=== PATIENT | male | born 1945 | race Two or more races ===

== ENCOUNTER 2018-06-11 08:15 | Emergency (ER) | payer OTHER, MEDICAID ==
[~2018-06-11] VITALS: Ht 160 cm; Wt 74.8 kg
[2018-06-11 12:03] LABS: Alanine Aminotransferase 29 U/L (16-61); Albumin 3.2 g/dL (3.4-5.0); Anion Gap 6 (5-15); Aspartate Aminotransferase 20 U/L (15-37); Blood Urea Nitrogen 14 mg/dL (7-18); Calcium 7.1 mg/dL (8.5-10.1); Carbon Dioxide 23 mmol/L (21-32); Chloride 114 mmol/L (98-107); Glucose 121 mg/dL (74-106); Magnesium 2.1 mg/dL (1.6-2.6); Potassium 3.2 mmol/L (3.5-5.1); Sodium 143 mmol/L (136-145)
[2018-06-11 12:07] LABS: Basophils # (auto) 0 uL; Basophils % (auto) 0.3 % (0.0-2.0); Eosinophils # (auto) 0 uL; Eosinophils % (auto) 0.4 % (0.0-7.0); Hematocrit 41.1 % (41.0-53.0); Lymphocytes % (auto) 19.5 % (10.0-50.0); Mean Corpuscular Hemoglobin 30.7 pg (28.0-32.0); Mean Corpuscular Volume 90.5 fL (80.0-100.0); Monocytes # (auto) 0.2 uL; Monocytes % (auto) 3.8 % (0.0-12.0); Neutrophils # (auto) 3.7 uL; Nucleated Red Blood Cells % 0.1 %; Platelet Count (auto) 120 10^3/uL (140-450); Red Blood Cells 4.54 10^6/uL (4.5-5.90); Red Cell Distribution Width 13.3 % (11.8-14.3); White Blood Cell 4.9 10^3/uL (4.4-10.8)
[2018-06-11 12:08] LABS: Alkaline Phosphatase 48 U/L (45-117); BUN/Creatinine Ratio 23.7; Bilirubin, Total 0.6 mg/dL (0.2-1.0); GFR African American 174 mL/min; GFR Non-African American 144 mL/min; Total Protein 6.1 g/dL (6.4-8.2)
[2018-06-11 13:29] LABS: Urine Bacteria NONE SEEN /hpf (None Seen); Urine Blood Negative /uL (Negative); Urine Mucus FEW (None Seen); Urine Specific Gravity 1.016 (1.001-1.035); Urine WBC 2 /hpf (0 - 3)
[2018-06-11] MEDS ORDERED: POTASSIUM EFFERVESENT TAB 25 MEQ PO ONE (13:30)
[2018-06-11] MEDS ORDERED: POTASSIUM CHL 20 Meq TABLET PO ONE (13:45)
[2018-06-11 15:54] VITALS: BP 131/76
== END 2018-06-11 15:58 | disposition home or self-care (01) ==
LOC: EDBD 08:15 → ER 08:15
DX: B34.9 Viral infection, unspecified (principal); G47.00 Insomnia, unspecified; E87.6 Hypokalemia; I44.0 Atrioventricular block, first degree; E44.1 Mild protein-calorie malnutrition; Z68.29 Body mass index [BMI] 29.0-29.9, adult
CPT/HCPCS: 36415; 71046; 80053; 81001; 83735; 84484; 85025; 93005

== ENCOUNTER 2023-11-12 10:37 | Inpatient (IN) | payer OTHER, MEDICAID ==
[~2023-11-12] VITALS: Ht 167.6 cm; Wt 72.0 kg
[2023-11-12 12:23] LABS: Urine Bacteria None Seen /hpf (None Seen)
[2023-11-12 12:31] LABS: Urine Blood TRACE /uL (Negative); Urine Clarity Clear (Clear); Urine Color Light-Yellow (Yellow); Urine Protein, UAD Negative (Negative); Urine Specific Gravity 1.007 (1.001-1.035); Urine Urobilinogen Normal (Negative); Urine WBC 2 /hpf (0 - 3)
[2023-11-12 13:10] LABS: Basophils # (auto) 0 10 ^3/uL (0-0.2); Basophils % (auto) 0.2 % (0.0-2.0); Eosinophils # (auto) 0 10 ^3/uL (0-0.8); Eosinophils % (auto) 0.5 % (0.0-7.0); Hematocrit 43.3 % (41.0-53.0); Hemoglobin 15.1 g/dL (13.5-17.5); Lymphocytes # (auto) 1.2 10 ^3/uL (0.4-5.4); Lymphocytes % (auto) 16.5 % (10.0-50.0); Mean Corpuscular Hemoglobin 31.3 pg (28.0-32.0); Mean Corpuscular Hgb Conc. 34.8 g/dL (32.0-36.0); Mean Corpuscular Volume 90.1 fL (80.0-100.0); Monocytes # (auto) 0.5 10 ^3/uL (0-1.3); Neutrophils # (auto) 5.5 10 ^3/uL (1.6-8.6); Neutrophils % (auto) 75.8 % (37.0-80.0); Platelet Count (auto) 154 10^3/uL (140-450); Red Blood Cells 4.81 10^6/uL (4.5-5.90); Red Cell Distribution Width 15.2 % (11.8-14.3); White Blood Cell 7.3 10^3/uL (4.4-10.8)
[2023-11-12] MEDS: TAMSULOSIN HYDROCHLORIDE 0.4 MG CAP PO ONE (13:21)
[2023-11-12 13:27] LABS: Alanine Aminotransferase 23 U/L (7-40); Alkaline Phosphatase 54 U/L (46-116); Anion Gap 15 (5-15); Aspartate Aminotransferase 25 U/L (13-40); Calcium 9.1 mg/dL (8.7-10.4); Carbon Dioxide 17 mmol/L (20-30); Chloride 94 mmol/L (98-107); Glucose 101 mg/dL (74-106); Potassium 4.8 mmol/L (3.5-5.1); Sodium 126 mmol/L (136-145)
[2023-11-12 13:28] LABS: BUN/Creatinine Ratio 5.5 (10.0-20.0); Blood Urea Nitrogen 73 mg/dL (9-23); Lipase 114 U/L (12-53); Magnesium 2.1 mg/dL (1.6-2.6)
[2023-11-12 13:29] LABS: Albumin 4.5 g/dL (3.2-4.8)
[2023-11-12] MEDS: SODIUM CHLORIDE 0.9% 1,000 ML IV ONE (13:29)
[2023-11-12 13:30] LABS: Bilirubin, Total 0.8 mg/dL (0.2-1.0); Total Protein 7.4 g/dL (5.7-8.2)
[2023-11-12] MEDS: SODIUM CHLORIDE 0.9% 250 ML IV ONE (13:35)
[2023-11-12] MEDS ORDERED: ONDANSETRON HCL 4 MG/2 ML VIAL IV PRN (15:30)
[2023-11-12] MEDS ORDERED: MORPHINE SULFATE INJ 2 MG/ml SYRG IV PRN ×2 (15:30→18:15)
[2023-11-12] MEDS ORDERED: DOCUSATE SOD 100 MG CAP PO PRN (15:30)
[2023-11-12] MEDS: SODIUM CHLORIDE 0.9% 1,000 ML IV SCH (15:30)
[2023-11-12 16:24] LABS: Creatinine, Urine 53.06 mg/dL (30.0-125.0)
[2023-11-12] MEDS ORDERED: NITROGLYCERIN 0.4 MG SL TAB SL PRN (16:30)
[2023-11-12] MEDS: HYDROcodone-ACET 5/325MG TAB PO PRN (16:50)
[2023-11-12] MEDS: cefTRIAXone 1GM/50ML D5W 50 ML IV ONE (18:24)
[2023-11-12] MEDS: MORPHINE SULFATE INJ 2 MG/ml SYRG IV ONE (18:26)
[2023-11-12 18:50] LABS: Hematocrit 39.2 % (41.0-53.0); Hemoglobin 13.6 g/dL (13.5-17.5)
[2023-11-13] VITALS (8 sets, daily range): BP systolic 119–158; BP diastolic 63–69; PULSE 18–78; RESP 16–20; TEMP 97.6–98.3; O2SAT 95–97
[2023-11-13] MEDS ORDERED: DOXY100C4 PO (00:13)
[2023-11-13] MEDS ORDERED: TRIA37.586 PO (00:13)
[2023-11-13] MEDS ORDERED: FIN5T PO (00:13)
[2023-11-13 07:24] LABS: Basophils # (auto) 0 10 ^3/uL (0-0.2); Basophils % (auto) 0.4 % (0.0-2.0); Eosinophils # (auto) 0 10 ^3/uL (0-0.8); Eosinophils % (auto) 0.8 % (0.0-7.0); Hematocrit 37.9 % (41.0-53.0); Hemoglobin 13.4 g/dL (13.5-17.5); Lymphocytes # (auto) 1.2 10 ^3/uL (0.4-5.4); Lymphocytes % (auto) 19.4 % (10.0-50.0); Mean Corpuscular Hgb Conc. 35.3 g/dL (32.0-36.0); Monocytes # (auto) 0.8 10 ^3/uL (0-1.3); Monocytes % (auto) 12.5 % (0.0-12.0); Neutrophils # (auto) 4.2 10 ^3/uL (1.6-8.6); Neutrophils % (auto) 66.9 % (37.0-80.0); Nucleated Red Blood Cells % 0.1 %; Platelet Count (auto) 144 10^3/uL (140-450); Red Blood Cells 4.31 10^6/uL (4.5-5.90); Red Cell Distribution Width 15.1 % (11.8-14.3); White Blood Cell 6.2 10^3/uL (4.4-10.8)
[2023-11-13 07:28] LABS: Alanine Aminotransferase 20 U/L (7-40); Alkaline Phosphatase 46 U/L (46-116); Anion Gap 7 (5-15); BUN/Creatinine Ratio 12.6 (10.0-20.0); Carbon Dioxide 23 mmol/L (20-30); Chloride 106 mmol/L (98-107); Glucose 109 mg/dL (74-106); Potassium 4.1 mmol/L (3.5-5.1); Sodium 136 mmol/L (136-145)
[2023-11-13 07:29] LABS: Albumin 3.7 g/dL (3.2-4.8); Aspartate Aminotransferase 21 U/L (13-40); Bilirubin, Total 1.1 mg/dL (0.2-1.0); Total Protein 6.1 g/dL (5.7-8.2)
[2023-11-13 07:40] LABS: Blood Urea Nitrogen 28 mg/dL (9-23)
[2023-11-13] MEDS: cefTRIAXone 1GM/50ML D5W 50 ML IV SCH (09:57)
[2023-11-13] MEDS: TAMSULOSIN HYDROCHLORIDE 0.4 MG CAP PO SCH (17:12)
[2023-11-13] MEDS ORDERED: hydrALAZINE HCL 20 MG/ML VL IV PRN (19:45)
[2023-11-13] MEDS: FINASTERIDE 5 MG TAB PO ONE (20:30)
[2023-11-13] MEDS: amLODIPine BESYLATE 5 MG TAB PO ONE (20:30)
[2023-11-13] MEDS: ENOXAPARIN SOD 30 MG/0.3 ML SYRINGE SC ONE (21:30)
[2023-11-14] VITALS (7 sets, daily range): BP systolic 117–134; BP diastolic 63–72; PULSE 65–98; RESP 16–18; TEMP 97.6–98.6; O2SAT 93–97
[2023-11-14 07:44] LABS: Basophils # (auto) 0 10 ^3/uL (0-0.2); Basophils % (auto) 0.6 % (0.0-2.0); Eosinophils # (auto) 0.1 10 ^3/uL (0-0.8); Eosinophils % (auto) 1.9 % (0.0-7.0); Hematocrit 36.9 % (41.0-53.0); Hemoglobin 13.1 g/dL (13.5-17.5); Lymphocytes # (auto) 1.3 10 ^3/uL (0.4-5.4); Lymphocytes % (auto) 22.3 % (10.0-50.0); Mean Corpuscular Hemoglobin 31.7 pg (28.0-32.0); Mean Corpuscular Hgb Conc. 35.4 g/dL (32.0-36.0); Mean Corpuscular Volume 89.6 fL (80.0-100.0); Monocytes # (auto) 0.6 10 ^3/uL (0-1.3); Monocytes % (auto) 10.1 % (0.0-12.0); Neutrophils # (auto) 3.8 10 ^3/uL (1.6-8.6); Neutrophils % (auto) 65.1 % (37.0-80.0); Nucleated Red Blood Cells % 0.1 %; Platelet Count (auto) 136 10^3/uL (140-450); Red Blood Cells 4.12 10^6/uL (4.5-5.90); Red Cell Distribution Width 15.1 % (11.8-14.3); White Blood Cell 5.9 10^3/uL (4.4-10.8)
[2023-11-14 08:01] LABS: Alanine Aminotransferase 17 U/L (7-40); Alkaline Phosphatase 40 U/L (46-116); Anion Gap 1 (5-15); Carbon Dioxide 29 mmol/L (20-30); Chloride 107 mmol/L (98-107); Potassium 3.8 mmol/L (3.5-5.1); Sodium 137 mmol/L (136-145)
[2023-11-14 08:02] LABS: BUN/Creatinine Ratio 13.7 (10.0-20.0); Blood Urea Nitrogen 10 mg/dL (9-23); Glucose 99 mg/dL (74-106)
[2023-11-14 08:03] LABS: Aspartate Aminotransferase 20 U/L (13-40)
[2023-11-14 08:04] LABS: Albumin 3.4 g/dL (3.2-4.8); Bilirubin, Total 0.9 mg/dL (0.2-1.0); Total Protein 5.5 g/dL (5.7-8.2)
[2023-11-14 09:30] LABS: Lipase 59 U/L (12-53)
[2023-11-14] MEDS: amLODIPine BESYLATE 5 MG TAB PO SCH (09:49)
[2023-11-14] MEDS: FINASTERIDE 5 MG TAB PO SCH (09:49)
[2023-11-14] MEDS: ENOXAPARIN SOD 30 MG/0.3 ML SYRINGE SC SCH (09:50)
[2023-11-14] MEDS: SODIUM CHLORIDE 0.9% 1,000 ML IV SCH (12:30)
[2023-11-14 15:18] LABS: Creatinine, Urine 27.84 mg/dL (30.0-125.0)
[2023-11-15 05:00] VITALS: BP 143/60; PULSE 75; RESP 18; TEMP 98; O2SAT 96
[2023-11-15 07:03] LABS: Basophils # (auto) 0 10 ^3/uL (0-0.2); Basophils % (auto) 0.5 % (0.0-2.0); Eosinophils # (auto) 0.2 10 ^3/uL (0-0.8); Eosinophils % (auto) 2.3 % (0.0-7.0); Hematocrit 38.9 % (41.0-53.0); Hemoglobin 13.6 g/dL (13.5-17.5); Lymphocytes % (auto) 14.6 % (10.0-50.0); Mean Corpuscular Hemoglobin 31.4 pg (28.0-32.0); Mean Corpuscular Volume 89.7 fL (80.0-100.0); Monocytes # (auto) 0.6 10 ^3/uL (0-1.3); Monocytes % (auto) 8.7 % (0.0-12.0); Neutrophils % (auto) 73.9 % (37.0-80.0); Platelet Count (auto) 145 10^3/uL (140-450); Red Blood Cells 4.34 10^6/uL (4.5-5.90); Red Cell Distribution Width 14.6 % (11.8-14.3); White Blood Cell 6.8 10^3/uL (4.4-10.8)
[2023-11-15 07:22] LABS: INR 1.15 (0.9-1.15); Partial Thromboplastin Time 30.6 SEC (24.5-34.5); Prothrombin Time 12.1 sec (9.3-11.8)
[2023-11-15 07:31] LABS: Alanine Aminotransferase 17 U/L (7-40); Albumin 3.5 g/dL (3.2-4.8); Alkaline Phosphatase 44 U/L (46-116); Anion Gap 5 (5-15); Aspartate Aminotransferase 15 U/L (13-40); BUN/Creatinine Ratio 9.2 (10.0-20.0); Blood Urea Nitrogen 6 mg/dL (9-23); Calcium 9.1 mg/dL (8.7-10.4); Carbon Dioxide 27 mmol/L (20-30); Chloride 104 mmol/L (98-107); Glucose 113 mg/dL (74-106); Potassium 3.5 mmol/L (3.5-5.1); Sodium 136 mmol/L (136-145)
[2023-11-15 08:00] VITALS: BP 110/64; PULSE 68; RESP 18; TEMP 98.8; O2SAT 92
[2023-11-15 09:00] VITALS: BP 110/64; PULSE 68; RESP 18; TEMP 98.8; O2SAT 92
[2023-11-15] MEDS: CIPROFLOXACIN 400MG/200ML 200 ML IV ONE (13:51)
[2023-11-15] MEDS ORDERED: fentaNYL CITRATE 100 MCG/2 ML VL ONE (16:14)
[2023-11-15] MEDS ORDERED: MEPERIDINE HCL (25 MG/ML) 1ML VIAL ONE (16:14)
[2023-11-15] MEDS ORDERED: MIDAZOLAM HCL 2MG/2ML 2ml VIAL (1mg/ml) ONE (16:14)
[2023-11-15] MEDS ORDERED: DexAMETHasone SOD PHOS 10MG/1ML VIAL INJ ONE (16:16)
[2023-11-15] MEDS ORDERED: PROPOFOL 10 MG/ML 20 ML IV ONE (16:16)
[2023-11-15 16:44] VITALS: BP 144/69; PULSE 85; RESP 18; TEMP 98.7; O2SAT 95
[2023-11-15 20:00] VITALS: RESP 18; O2SAT 96
[2023-11-15 21:00] VITALS: BP 147/69; PULSE 91; RESP 18; TEMP 98.7; O2SAT 96
[2023-11-16] VITALS (9 sets, daily range): BP systolic 118–142; BP diastolic 58–78; PULSE 68–91; RESP 16–21; TEMP 97.3–99.3; O2SAT 93–100
[2023-11-16 07:14] LABS: Basophils # (auto) 0 10 ^3/uL (0-0.2); Basophils % (auto) 0.3 % (0.0-2.0); Eosinophils # (auto) 0.1 10 ^3/uL (0-0.8); Eosinophils % (auto) 1.7 % (0.0-7.0); Hematocrit 38.6 % (41.0-53.0); Hemoglobin 13.5 g/dL (13.5-17.5); Lymphocytes # (auto) 1.4 10 ^3/uL (0.4-5.4); Lymphocytes % (auto) 15.4 % (10.0-50.0); Mean Corpuscular Hemoglobin 31.6 pg (28.0-32.0); Mean Corpuscular Volume 90.2 fL (80.0-100.0); Monocytes # (auto) 0.7 10 ^3/uL (0-1.3); Monocytes % (auto) 8.1 % (0.0-12.0); Neutrophils # (auto) 6.6 10 ^3/uL (1.6-8.6); Neutrophils % (auto) 74.5 % (37.0-80.0); Nucleated Red Blood Cells % 0.1 %; Platelet Count (auto) 149 10^3/uL (140-450); Red Blood Cells 4.28 10^6/uL (4.5-5.90); Red Cell Distribution Width 14.3 % (11.8-14.3); White Blood Cell 8.9 10^3/uL (4.4-10.8)
[2023-11-16 07:45] LABS: Alanine Aminotransferase 13 U/L (7-40); Albumin 3.6 g/dL (3.2-4.8); Alkaline Phosphatase 45 U/L (46-116); Anion Gap 3 (5-15); BUN/Creatinine Ratio 6.9 (10.0-20.0); Blood Urea Nitrogen 5 mg/dL (9-23); Calcium 8.7 mg/dL (8.7-10.4); Carbon Dioxide 26 mmol/L (20-30); Chloride 105 mmol/L (98-107); Glucose 125 mg/dL (74-106); Potassium 3.3 mmol/L (3.5-5.1); Sodium 134 mmol/L (136-145)
[2023-11-16 07:47] LABS: Aspartate Aminotransferase 11 U/L (13-40); Total Protein 6.1 g/dL (5.7-8.2)
[2023-11-16] MEDS: KETOROLAC TROMETH 30 MG/ML 1ML VIAL IV ONE (09:03)
[2023-11-16] MEDS: POTASSIUM CHL 20MEQ/100ML 100 ML IV ONE (09:03)
[2023-11-16] MEDS ORDERED: KETOROLAC TROMETH 30 MG/ML 1ML VIAL IV PRN (13:00)
[2023-11-16] MEDS ORDERED: SUGAMMADEX 200mg/2ml Vial (100MG/ML) IV ONE (13:54)
[2023-11-16] MEDS ORDERED: ROCURONIUM 10MG/ML 10ML VIAL IV ONE ×2 (13:54→16:41)
[2023-11-16] MEDS ORDERED: LIDOCAINE 2% (LOCAL ANESTH.) PF 5ml SDV ONE (13:54)
[2023-11-16] MEDS ORDERED: PROPOFOL 10 MG/ML 20 ML IV ONE ×2 (13:54→16:41)
[2023-11-16] MEDS ORDERED: DexAMETHasone SOD PHOS 10MG/1ML VIAL INJ ONE (13:54)
[2023-11-16] MEDS ORDERED: ONDANSETRON HCL 4 MG/2 ML VIAL ONE (13:54)
[2023-11-16] MEDS ORDERED: GLYCOPYRROLATE 0.2 MG/ML 1ML VIAL ONE ×2 (13:54→19:07)
[2023-11-16] MEDS ORDERED: KETAMINE 50mg/ML 1ml syringe ONE (13:58)
[2023-11-16] MEDS: CIPROFLOXACIN 400MG/200ML 200 ML IV ONE (15:42)
[2023-11-16] MEDS: MAGNESIUM SULFATE 1GM/100ML 100 ML IV ONE (16:00)
[2023-11-16] MEDS ORDERED: MIDAZOLAM HCL 2MG/2ML 2ml VIAL (1mg/ml) ONE (16:40)
[2023-11-16] MEDS ORDERED: fentaNYL CITRATE 5 ML ONE (16:40)
[2023-11-16] MEDS ORDERED: HYDROmorphone HCL 2 MG/ML VL/or syr IV PRN (19:00)
[2023-11-16] MEDS ORDERED: NEOSTIGMINE 1 MG/ML INJ (10mg/10ML VIAL) ONE (19:07)
[2023-11-16] MEDS: oxyCODONE HCL 5MG TAB PO ONE (19:42)
[2023-11-16] MEDS ORDERED: NALOXONE HCL 0.4 MG/ML VIAL IV PRN (19:45)
[2023-11-16] MEDS ORDERED: ePHEDrine SULFATE 50 MG/ML AMP IV PRN (19:45)
[2023-11-16] MEDS ORDERED: FLUMAZENIL 0.1 MG/ML INJ 10ML MDV IV PRN (19:45)
[2023-11-16] MEDS ORDERED: hydrALAZINE HCL 20 MG/ML VL IV PRN (19:45)
[2023-11-16] MEDS ORDERED: fentaNYL CITRATE 100 MCG/2 ML VL IV PRN (19:45)
[2023-11-16] MEDS: HYDROmorphone HCL 2 MG/ML VL/or syr IV PRN (20:02)
[2023-11-16] MEDS ORDERED: HYDROmorphone HCL 2 MG/ML VL/or syr ONE (20:03)
[2023-11-17] VITALS (8 sets, daily range): BP systolic 105–138; BP diastolic 55–69; PULSE 67–91; RESP 15–21; TEMP 98.1–99.2; O2SAT 90–98
[2023-11-17 07:07] LABS: Basophils # (auto) 0 10 ^3/uL (0-0.2); Basophils % (auto) 0.3 % (0.0-2.0); Eosinophils # (auto) 0.2 10 ^3/uL (0-0.8); Eosinophils % (auto) 2.3 % (0.0-7.0); Lymphocytes % (auto) 13.5 % (10.0-50.0); Mean Corpuscular Hemoglobin 31.5 pg (28.0-32.0); Mean Corpuscular Hgb Conc. 35.2 g/dL (32.0-36.0); Mean Corpuscular Volume 89.4 fL (80.0-100.0); Monocytes # (auto) 0.5 10 ^3/uL (0-1.3); Monocytes % (auto) 6.8 % (0.0-12.0); Neutrophils % (auto) 77.1 % (37.0-80.0); Platelet Count (auto) 144 10^3/uL (140-450); Red Cell Distribution Width 14.5 % (11.8-14.3); White Blood Cell 7.7 10^3/uL (4.4-10.8)
[2023-11-17 07:16] LABS: Alanine Aminotransferase 12 U/L (7-40); Alkaline Phosphatase 39 U/L (46-116); Anion Gap 4 (5-15); BUN/Creatinine Ratio 14.5 (10.0-20.0); Blood Urea Nitrogen 10 mg/dL (9-23); Calcium 8.4 mg/dL (8.7-10.4); Carbon Dioxide 28 mmol/L (20-30); Chloride 106 mmol/L (98-107); Glucose 143 mg/dL (74-106); Potassium 3.6 mmol/L (3.5-5.1); Sodium 138 mmol/L (136-145)
[2023-11-17 07:17] LABS: Aspartate Aminotransferase 11 U/L (13-40); Bilirubin, Total 0.5 mg/dL (0.2-1.0); Total Protein 5.4 g/dL (5.7-8.2)
[2023-11-17] MEDS: MAGNESIUM SULFATE 1GM/100ML 100 ML IV SCH (09:41)
[2023-11-18] VITALS (8 sets, daily range): BP systolic 99–132; BP diastolic 52–85; PULSE 79–97; RESP 14–20; TEMP 97.8–98.7; O2SAT 93–97
[2023-11-18 07:18] LABS: Basophils # (auto) 0 10 ^3/uL (0-0.2); Basophils % (auto) 0.5 % (0.0-2.0); Eosinophils # (auto) 0.1 10 ^3/uL (0-0.8); Eosinophils % (auto) 1.6 % (0.0-7.0); Hematocrit 33.8 % (41.0-53.0); Lymphocytes # (auto) 0.9 10 ^3/uL (0.4-5.4); Lymphocytes % (auto) 11.5 % (10.0-50.0); Mean Corpuscular Hemoglobin 32.1 pg (28.0-32.0); Mean Corpuscular Hgb Conc. 35.5 g/dL (32.0-36.0); Mean Corpuscular Volume 90.4 fL (80.0-100.0); Monocytes # (auto) 0.4 10 ^3/uL (0-1.3); Monocytes % (auto) 5.2 % (0.0-12.0); Neutrophils # (auto) 6.6 10 ^3/uL (1.6-8.6); Neutrophils % (auto) 81.2 % (37.0-80.0); Platelet Count (auto) 165 10^3/uL (140-450); Red Blood Cells 3.74 10^6/uL (4.5-5.90); Red Cell Distribution Width 14.3 % (11.8-14.3); White Blood Cell 8.2 10^3/uL (4.4-10.8)
[2023-11-18 07:19] LABS: Alanine Aminotransferase 13 U/L (7-40); Albumin 3.1 g/dL (3.2-4.8); Alkaline Phosphatase 41 U/L (46-116); Anion Gap 4 (5-15); Aspartate Aminotransferase 14 U/L (13-40); BUN/Creatinine Ratio 12.9 (10.0-20.0); Blood Urea Nitrogen 8 mg/dL (9-23); Calcium 8.1 mg/dL (8.7-10.4); Carbon Dioxide 29 mmol/L (20-30); Chloride 105 mmol/L (98-107); Glucose 116 mg/dL (74-106); Magnesium 1.9 mg/dL (1.6-2.6); Potassium 3.4 mmol/L (3.5-5.1); Sodium 138 mmol/L (136-145)
[2023-11-18 07:20] LABS: Bilirubin, Total 0.6 mg/dL (0.2-1.0); Total Protein 5.6 g/dL (5.7-8.2)
[2023-11-18] MEDS: ENOXAPARIN SOD 40 MG/0.4 ML SYRINGE SC SCH (10:00)
[2023-11-18] MEDS: SODIUM CHLORIDE 0.9% 500 ML IV ONE (10:12)
[2023-11-18 13:32] LABS: Potassium 3.5 mmol/L (3.5-5.1)
[2023-11-18 13:39] LABS: Magnesium 1.9 mg/dL (1.6-2.6)
[2023-11-18] MEDS: POTASSIUM CHL 20 Meq TABLET PO ONE (13:54)
[2023-11-18] MEDS: MAGNESIUM SULFATE 1GM/100ML 100 ML IV ONE (13:54)
[2023-11-19] VITALS (7 sets, daily range): BP systolic 96–127; BP diastolic 56–67; PULSE 68–86; RESP 16–20; TEMP 97.7–98.7; O2SAT 94–96
[2023-11-19 05:53] LABS: Basophils # (auto) 0 10 ^3/uL (0-0.2); Basophils % (auto) 0.6 % (0.0-2.0); Eosinophils # (auto) 0.1 10 ^3/uL (0-0.8); Eosinophils % (auto) 2.6 % (0.0-7.0); Hemoglobin 11.8 g/dL (13.5-17.5); Lymphocytes # (auto) 1.2 10 ^3/uL (0.4-5.4); Lymphocytes % (auto) 21.2 % (10.0-50.0); Mean Corpuscular Hemoglobin 31.1 pg (28.0-32.0); Mean Corpuscular Hgb Conc. 34.7 g/dL (32.0-36.0); Mean Corpuscular Volume 89.7 fL (80.0-100.0); Monocytes # (auto) 0.4 10 ^3/uL (0-1.3); Monocytes % (auto) 7.7 % (0.0-12.0); Neutrophils # (auto) 3.9 10 ^3/uL (1.6-8.6); Neutrophils % (auto) 67.9 % (37.0-80.0); Platelet Count (auto) 185 10^3/uL (140-450); Red Blood Cells 3.79 10^6/uL (4.5-5.90); Red Cell Distribution Width 14.6 % (11.8-14.3); White Blood Cell 5.7 10^3/uL (4.4-10.8)
[2023-11-19 06:10] LABS: Alanine Aminotransferase 29 U/L (7-40); Albumin 2.9 g/dL (3.2-4.8); Alkaline Phosphatase 44 U/L (46-116); Anion Gap 3 (5-15); Aspartate Aminotransferase 28 U/L (13-40); BUN/Creatinine Ratio 16.1 (10.0-20.0); Blood Urea Nitrogen 10 mg/dL (9-23); Calcium 8.2 mg/dL (8.7-10.4); Carbon Dioxide 29 mmol/L (20-30); Chloride 106 mmol/L (98-107); Glucose 112 mg/dL (74-106); Potassium 3.6 mmol/L (3.5-5.1); Sodium 138 mmol/L (136-145)
[2023-11-19 06:11] LABS: Bilirubin, Total 0.6 mg/dL (0.2-1.0); Total Protein 5.5 g/dL (5.7-8.2)
[2023-11-19] MEDS: oxyCODONE HCL 5MG TAB ONE (07:39)
[2023-11-19] MEDS: ONDANSETRON HCL 4 MG/2 ML VIAL IV ONE ×2 (07:39)
[2023-11-20 01:00] VITALS: BP 113/62; PULSE 69; RESP 16; TEMP 97.8; O2SAT 93
[2023-11-20 05:00] VITALS: BP 112/60; PULSE 63; RESP 16; TEMP 97.7; O2SAT 94
[2023-11-20 06:43] LABS: Basophils # (auto) 0 10 ^3/uL (0-0.2); Basophils % (auto) 1.3 % (0.0-2.0); Eosinophils # (auto) 0.2 10 ^3/uL (0-0.8); Eosinophils % (auto) 4.5 % (0.0-7.0); Hematocrit 33.8 % (41.0-53.0); Hemoglobin 11.6 g/dL (13.5-17.5); Lymphocytes # (auto) 1.5 10 ^3/uL (0.4-5.4); Lymphocytes % (auto) 37.1 % (10.0-50.0); Mean Corpuscular Hemoglobin 30.8 pg (28.0-32.0); Mean Corpuscular Hgb Conc. 34.3 g/dL (32.0-36.0); Mean Corpuscular Volume 89.7 fL (80.0-100.0); Monocytes # (auto) 0.4 10 ^3/uL (0-1.3); Monocytes % (auto) 11.1 % (0.0-12.0); Neutrophils # (auto) 1.8 10 ^3/uL (1.6-8.6); Platelet Count (auto) 208 10^3/uL (140-450); Red Blood Cells 3.76 10^6/uL (4.5-5.90); Red Cell Distribution Width 14.3 % (11.8-14.3); White Blood Cell 3.9 10^3/uL (4.4-10.8)
[2023-11-20 07:07] LABS: Alanine Aminotransferase 38 U/L (7-40); Albumin 3.1 g/dL (3.2-4.8); Alkaline Phosphatase 40 U/L (46-116); Anion Gap 3 (5-15); Aspartate Aminotransferase 33 U/L (13-40); BUN/Creatinine Ratio 17.9 (10.0-20.0); Bilirubin, Total 0.5 mg/dL (0.2-1.0); Blood Urea Nitrogen 12 mg/dL (9-23); Calcium 8.6 mg/dL (8.7-10.4); Carbon Dioxide 28 mmol/L (20-30); Chloride 108 mmol/L (98-107); Glucose 100 mg/dL (74-106); Magnesium 1.8 mg/dL (1.6-2.6); Potassium 3.9 mmol/L (3.5-5.1); Sodium 139 mmol/L (136-145); Total Protein 5.5 g/dL (5.7-8.2)
[2023-11-20 09:00] VITALS: BP 123/69; PULSE 63; RESP 20; TEMP 98; O2SAT 96
[2023-11-20 13:00] VITALS: BP 107/54; PULSE 82; RESP 20; TEMP 97.9; O2SAT 96
[2023-11-20 17:00] VITALS: BP 116/63; PULSE 65; RESP 20; TEMP 98.3; O2SAT 96
[2023-11-20 21:00] VITALS: BP 122/62; PULSE 76; RESP 17; TEMP 98.1; O2SAT 95
[2023-11-21] VITALS (7 sets, daily range): BP systolic 105–125; BP diastolic 51–70; PULSE 63–77; RESP 16–18; TEMP 97.9–98.3; O2SAT 94–100
[2023-11-21 07:02] LABS: Basophils # (auto) 0 10 ^3/uL (0-0.2); Basophils % (auto) 1.1 % (0.0-2.0); Eosinophils # (auto) 0.2 10 ^3/uL (0-0.8); Eosinophils % (auto) 5.4 % (0.0-7.0); Hematocrit 34.6 % (41.0-53.0); Hemoglobin 12.1 g/dL (13.5-17.5); Lymphocytes # (auto) 1.3 10 ^3/uL (0.4-5.4); Lymphocytes % (auto) 33.8 % (10.0-50.0); Mean Corpuscular Hemoglobin 31.2 pg (28.0-32.0); Mean Corpuscular Hgb Conc. 34.9 g/dL (32.0-36.0); Mean Corpuscular Volume 89.5 fL (80.0-100.0); Monocytes # (auto) 0.4 10 ^3/uL (0-1.3); Monocytes % (auto) 9.3 % (0.0-12.0); Neutrophils # (auto) 1.9 10 ^3/uL (1.6-8.6); Neutrophils % (auto) 50.4 % (37.0-80.0); Nucleated Red Blood Cells % 0.1 %; Platelet Count (auto) 226 10^3/uL (140-450); Red Blood Cells 3.87 10^6/uL (4.5-5.90); Red Cell Distribution Width 14.3 % (11.8-14.3); White Blood Cell 3.9 10^3/uL (4.4-10.8)
[2023-11-21 07:12] LABS: Alanine Aminotransferase 33 U/L (7-40); Albumin 3.2 g/dL (3.2-4.8); Alkaline Phosphatase 41 U/L (46-116); Anion Gap 5 (5-15); Aspartate Aminotransferase 23 U/L (13-40); Blood Urea Nitrogen 13 mg/dL (9-23); Calcium 8.4 mg/dL (8.7-10.4); Carbon Dioxide 26 mmol/L (20-30); Chloride 108 mmol/L (98-107); Glucose 96 mg/dL (74-106); Potassium 3.9 mmol/L (3.5-5.1); Sodium 139 mmol/L (136-145)
[2023-11-21 07:13] LABS: Bilirubin, Total 0.5 mg/dL (0.2-1.0); Total Protein 5.6 g/dL (5.7-8.2)
[2023-11-21] MEDS ORDERED: AML5T PO (11:41)
[2023-11-21] MEDS ORDERED: TAMS-35 PO (11:41)
== END 2023-11-21 16:52 | disposition home health service (06) | DRG 713 ==
LOC: EDBD 10:37 → ER 10:44 → OVERFLOW 16:23 → EAST 23:23 → WEST WING 11-20 16:34
PROVIDERS: ADMIT Internal Medicine Pulmonary Disease; ATTEND Internal Medicine Pulmonary Disease
PROC: 0V508ZZ Destruction of Prostate, Via Natural or Artificial Opening Endoscopic (ICD-10-PCS; 2023-11-16 16:34)
PROC: 0S9C3ZZ Drainage of Right Knee Joint, Percutaneous Approach (ICD-10-PCS; principal; 2023-11-17)
DX: N40.1 Benign prostatic hyperplasia with lower urinary tract symptoms (principal); E87.1 Hypo-osmolality and hyponatremia; N13.8 Other obstructive and reflux uropathy; N17.9 Acute kidney failure, unspecified; J98.11 Atelectasis; N20.0 Calculus of kidney; I10 Essential (primary) hypertension; R33.8 Other retention of urine; M10.9 Gout, unspecified; M25.461 Effusion, right knee; E78.5 Hyperlipidemia, unspecified; E83.42 Hypomagnesemia; E87.6 Hypokalemia; Z82.49 Family history of ischemic heart disease and other diseases of the circulatory system
CPT/HCPCS: 36415; 71046; 73560; 74176; 76775; 76881; 76942; 80053; 81001; 82570; 83690; 83735; 83930; 83935; 84132; 84300; 84484; 84550; 85014; 85018; 85025; 85610; 85730; 86850; 86900; 86901; 87205; 93005; G0378; J1100; J1885; J2001; J2250; J2405; J2704; J3480

== ENCOUNTER 2023-12-08 18:09 | Emergency (ER) | payer OTHER, MEDICAID ==
[~2023-12-08] VITALS: Ht 165.1 cm; Wt 69.5 kg
[~2023-12-08 18:09] MED LIST: AML5T PO; FIN5T PO; TAMS-35 PO
[2023-12-08 18:57] LABS: Urine Bacteria None Seen /hpf (None Seen)
[2023-12-08 19:59] LABS: Urine Blood 3+ /uL (Negative); Urine Clarity Ex.Turbid (Clear); Urine Color Red (Yellow); Urine Protein, UAD 2+ (Negative); Urine Specific Gravity 1.024 (1.001-1.035); Urine Urobilinogen Normal (Negative); Urine WBC 132 /hpf (0 - 3); Urine pH 5.5 (5.0-9.0)
[2023-12-08 20:00] LABS: Urine Mucus FEW (None Seen)
[2023-12-08 20:01] LABS: Urine Budding Yeast Moderate /hpf (None Seen)
[2023-12-08] MEDS ORDERED: LEVO750T40 PO (20:21)
[2023-12-08] MEDS ORDERED: ACET500T58 PO (20:21)
[2023-12-08] MEDS: levoFLOXacin 250 MG TAB PO ONE (22:04)
[2023-12-08 22:07] VITALS: BP 132/75; PULSE 76; RESP 18; TEMP 98.4; O2SAT 97
== END 2023-12-08 22:12 | disposition home or self-care (01) ==
LOC: ER 18:09
DX: N39.0 Urinary tract infection, site not specified (principal)
CPT/HCPCS: 81001

== ENCOUNTER 2024-09-01 07:53 | Emergency (ER) | payer OTHER, MEDICAID ==
[~2024-09-01] VITALS: Ht 167.6 cm; Wt 70.7 kg
[~2024-09-01 07:53] MED LIST changes: +ACET500T58 PO; +LEVO750T40 PO
--- NOTE | 2024-09-01 08:11 | ED.PDOC ---
GI ASSESSMENT HPI Comments 79-year-old male here with 2 days of mid abdominal pain. Reports positive nausea no vomiting no diarrhea. He states he has a history of chronic constipation and has not had a bowel movement at all in 1 week. And when he does it is very small. Denies any fever or chills. Denies any cough cold runny nose. States pain is constant. Denies any burning with urination. Time Seen by MD: 08:05 Primary Care Provider: Unknown Reviewed Notes: Nurses Notes, Medications, Allergies Allergies: Coded Allergies: NO KNOWN ALLERGIES (Unverified , 06/11/18) Home Meds Active Scripts Acetaminophen (Acetaminophen) 500 Mg Tab, 500 MG PO Q4HP PRN, #20 TAB Prov:ANNAMARIA ARROYO PAC 12/08/23 Levofloxacin Hemihydrate (LEVOFLOXACIN) 750 Mg Tab, 1 TAB PO DAILY for 9 Days, #9 TAB Prov:ANNAMARIA ARROYO PAC 12/08/23 Amlodipine Besylate (NORVASC TABLET) 5 Mg Tb, 10 MG PO DAILY for 30 Days, #60 TAB Prov:JASON ANDREW RESIDENT 11/21/23 Tamsulosin Hcl (Flomax) 0.4 Mg Cap, 0.4 MG PO QPM for 30 Days, #30 CAP Prov:JASON ANDREW RESIDENT 11/21/23 Reported Medications Finasteride (Finasteride) 5 Mg Tab, 1 TAB PO DAILY 11/13/23 Information Source: Patient Mode of Arrival: Ambulatory Timing: Weeks Duration: Since onset Prehospital treatment: None Quality: None Vomitus: Watery Stool: Impaction Severity: Moderate Recent: None Recent Hx of: None Pain Location: Diffuse Modifying Factors: Nothing Associated sign and symptoms: Vomiting, Constipation, Abdominal Pain Past Medical History PAST MEDICAL HISTORY: Denies Surgical History: Denies all surgeries Family History Family History: Unknown Social History Smoker: Non-Smoker Alcohol: Denies ETOH Use Drugs: Denies Drug Use Lives In: Home Gastrointestinal: reports: abdominal pain, constipated, nausea All Other Systems: Reviewed and Negative ( PER HPI) Physical Exam General Appearance: No Apparent Distress, Normal HEENT: Normal ENT Inspection, Pharynx Normal Neck: Full Range of Motion, Non-Tender, Normal, Normal Inspection Respiratory: Chest Non-Tender, Lungs Clear, No Accessory Muscle Use, No Respiratory Distress, Normal Breath Sounds Cardiovascular: No Edema, No JVD, No Murmur, No Gallop, Normal Peripheral Pulses, Regular Rate/Rhythm Breast Exam: Deferred Gastrointestinal: No Organomegaly, Non Tender, No Pulsatile Mass, Normal Bowel Sounds, Soft Genitalia: Deferred Pelvic: Deferred Rectal: Deferred Extremities: No calf tenderness, Normal capillary refill, Normal inspection, Normal range of motion, Non-tender, No pedal edema Musculoskeletal : Apperance: Normal Neurologic: Alert, caustic room attendant II-XII nml as Tested, No Motor Deficits, Normal Affect, Normal Mood, No Sensory Deficits Cerebellar Function: Normal Reflexes: Normal Skin: Dry, Normal Color, Warm Lymphatic: No Adenopathy EKG EKG : Comments 65 rate, sinus rhythm no significant ST changes. Was a procedure done? Was a procedure done?: No GI differential Dx Differential Diagnosis: Bowel Obstruction, Constipation, Diverticular disease, Gastritis/PUD, Gastroenteritis, Inflammatory BD, Electrolyte Imbalance, Food Poisoning, Bacterial, Viral X-Ray, Labs, Meds, VS Vital Signs Date Time Temp Pulse Resp B/P (MAP) Pulse Ox O2 Delivery O2 Flow Rate FiO2 09/01/24 10:54 97.6 60 20 151/81 (104) 95 97.6 09/01/24 09:00 63 17 98 09/01/24 08:50 98.5 68 20 157/79 (105) 97 98.5 09/01/24 08:50 68 20 97 Room Air* 0 21 09/01/24 08:15 65 09/01/24 08:09 97.6 67 17 178/88 (118) 95 97.6 09/01/24 08:08 65 Lab Test 09/01/24 08:15 09/01/24 08:12 Range/Units White Blood Count 7.2 4.4-10.8 10^3/uL Red Blood Count 5.33 4.5-5.90 10^6/uL Hemoglobin 16.7 13.5-17.5 g/dL Hematocrit 47.7 41.0-53.0 % Mean Corpuscular Volume 89.4 80.0-100.0 fL Mean Corpuscular Hemoglobin 31.2 28.0-32.0 pg Mean Corpuscular Hemoglobin Concent 34.9 32.0-36.0 g/dL Red Cell Distribution Width 14.2 11.8-14.3 % Platelet Count 193 140-450 10^3/uL Mean Platelet Volume 8.1 6.9-10.8 fL Neutrophils (%) (Auto) 69.8 37.0-80.0 % Lymphocytes (%) (Auto) 24.0 10.0-50.0 % Monocytes (%) (Auto) 5.1 0.0-12.0 % Eosinophils (%) (Auto) 0.5 0.0-7.0 % Basophils (%) (Auto) 0.6 0.0-2.0 % Neutrophils # (Auto) 5.0 1.6-8.6 10 ^3/uL Lymphocytes # (Auto) 1.7 0.4-5.4 10 ^3/uL Monocytes # (Auto) 0.4 0-1.3 10 ^3/uL Eosinophils # (Auto) 0 0-0.8 10 ^3/uL Basophils # (Auto) 0 0-0.2 10 ^3/uL Nucleated Red Blood Cells 0.0 % Sodium Level 143 136-145 mmol/L Potassium Level 3.7 3.5-5.1 mmol/L Chloride Level 106 98-107 mmol/L Carbon Dioxide Level 28 20-31 mmol/L Anion Gap 9 5-15 Blood Urea Nitrogen 9 9-23 mg/dL Creatinine 0.86 0.700-1.30 mg/dL Glomerular Filtration Rate Calc 89 >90 mL/min BUN/Creatinine Ratio 10.5 10.0-20.0 Serum Glucose 133 H 74-106 mg/dL Calcium Level 9.5 8.7-10.4 mg/dL Total Bilirubin 1.0 0.2-1.0 mg/dL Aspartate Amino Transferase (AST) 21 13-40 U/L Alanine Aminotransferase (ALT) 60 H 7-40 U/L Alkaline Phosphatase 124 H 46-116 U/L Total Protein 7.7 5.7-8.2 g/dL Albumin 4.6 3.2-4.8 g/dL Lipase 56 H 12-53 U/L Urine Color Pending Urine Clarity Pending Urine pH Pending Urine Specific [place] Pending Urine Protein Pending Urine Ketones Pending Urine Blood Pending Urine Nitrite Pending Urine Bilirubin Pending Urine Urobilinogen Pending Urine Leukocyte Esterase Pending Urine RBC Pending Urine Microscopic WBC Pending Urine Squamous Epithelial Cells Pending Urine Bacteria Pending Urine Glucose Pending Current Medications Medications (Trade) Dose Ordered Sig/Luz Maria Route Start Time Stop Time Status Last Admin Ondansetron HCl (Zofran Po) 4 mg ONCE ONCE PO 09/01/24 08:15 09/01/24 08:16 DC 09/01/24 08:[address] [address] Ph: [phone] DIAGNOSTIC IMAGING Diagnostic Imaging Report : [id number] Signed PATIENT: EVER MURO ACCT: [id number] UNIT: [id number] : 1945 LOC: ER ROOM / BED: / AGE / SEX: 79 / M ADM STATUS: REG ER SERVICE 1 ORDERING PHYSICIAN: DIANA FERRER MD PROCEDURE(s): ABPL - CT AB PEL WO CON-NO ORAL OR IV REASON: Rule out small bowel obstruction ORDER NUMBER(s): [id number], ACCESSION NUMBER(s): [id number] CLINICAL INFORMATION: 79 years old, Male; Rule out small bowel obstruction. TECHNIQUE: Axial CT images of the abdomen and pelvis were obtained without IV contrast. Coronal and sagittal reformatted images were obtained, reviewed, and stored. Evaluation of the parenchymal organs is limited without IV contrast. Evaluation of the bowel and mesentery is limited without oral contrast. All CT scans at this medical facility are performed using dose modulation techniques as appropriate to a performed exam including the following: Automated exposure control was utilized; adjustment of the MA and/or KV according to patient size; and use of iterative reconstruction technique. CTDIvol = 9.32 mGy DLP = 574.63 mGy-cm COMPARISON: CT CT AB PEL WO CON-NO ORAL OR IV on DOS: 11/12/23 FINDINGS: Lung bases: Respiratory motion artifact limits evaluation of the lung bases. Atelectasis visualized in the lung bases. Liver: Subtle nodular contour of the liver, may be seen with cirrhosis in the appropriate clinical setting. Biliary: Mildly distended gallbladder. No calcified gallstones visualized. Spleen: Unremarkable. Pancreas: Grossly unremarkable in its noncontrast enhanced appearance. Adrenal glands: Unremarkable. No mass. Kidneys: No hydronephrosis and no renal or ureteral calculi. Nonspecific mild bilateral perinephric stranding. Aorta/Vascular: Moderate atherosclerotic calcification. No abdominal aortic aneurysm. Retroperitoneum: No mass or lymphadenopathy. Bowel/mesentery: No small bowel obstruction. No free air or free fluid. Appendix is visualized and appears unremarkable. Scattered colonic diverticula without adjacent inflammatory changes to suggest diverticulitis. Pelvic organs: Enlarged prostate with impression on the bladder base. Bladder: Bladder is underdistended and suboptimally evaluated. Circumferential thickening of the bladder wall is nonspecific. Abdominal wall: Small fat containing indirect left inguinal hernia. Bones: No acute fracture or suspicious intraosseous lesion. IMPRESSION: 1. No small bowel obstruction. Normal-appearing appendix. 2. Scattered colonic diverticula without adjacent inflammatory changes to suggest diverticulitis. 3. Circumferential thickening of the bladder wall is nonspecific and may be partly due to underdistention. Correlate clinically to exclude cystitis. 4. Subtle nodular contour of the liver, may be seen with cirrhosis in the appropriate clinical setting. Correlate with clinical findings. Mildly distended gallbladder with no calcified gallstones visualized. Correlate with clinical findings. If clinically indicated, ultrasound could be obtained. 5. Additional findings as detailed above. ATED BY: ANTHONY SIFUENTES DO DICTATED DATE/TIME: 09/01/24850 SIGNED BY: ANTHONY SIFUENTES DO SIGNED DATE/TIME: 09/01/24850 CC: 79-year-old male presents here with abdominal pain he points to the epigastric region. But is mildly tender throughout the abdomen. Given his age considered possible small bowel obstruction. CT abdomen pelvis has been done which demonstrates no bowel obstruction normal appearing appendix. However it does demonstrate subtle nodular contour of the liver may be cirrhosis. Patient does endorse heavy drinking. I strongly advised him the need to stop drinking. Spoke to both [id number] and son and they both agree. He also has current burning sensation in his epigastric region. Suspect likely alcoholic gastritis. Advised him to use Maalox [id number] and/or omeprazole over the counter. However strongly advised him to stop drinking. He is to follow up with his primary care physician. Advised her to return if symptoms worsen or persist. Both patient, daughter and son both agreeable to the plan. 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 Return to the ER if symptoms worsen or persist. It is very important you stop drinking. CT scan d emonstrates beginning of cirrhosis. Suspect likely gastritis also. Please take Maalox and if this does not help try omeprazole [id number] medicine. [place] [address] Ph: [phone] DIAGNOSTIC IMAGING Diagnostic Imaging Report : [id number] Signed PATIENT: EVER MURO ACCT: [id number] UNIT: [id number] : 1945 LOC: ER ROOM / BED: / AGE / SEX: 79 / M ADM STATUS: REG ER SERVICE 1 ORDERING PHYSICIAN: DIANA FERRER MD PROCEDURE(s): ABPL - CT AB PEL WO CON-NO ORAL OR IV REASON: Rule out small bowel obstruction ORDER NUMBER(s): [id number], ACCESSION NUMBER(s): [id number] CLINICAL INFORMATION: 79 years old, Male; Rule out small bowel obstruction. TECHNIQUE: Axial CT images of the abdomen and pelvis were obtained without IV contrast. Coronal and sagittal reformatted images were obtained, reviewed, and stored. Evaluation of the parenchymal organs is limited without IV contrast. Evaluation of the bowel and mesentery is limited without oral contrast. All CT scans at this medical facility are performed using dose modulation techniques as appropriate to a performed exam including the following: Automated exposure control was utilized; adjustment of the MA and/or KV according to patient size; and use of iterative reconstruction technique. CTDIvol = 9.32 mGy DLP = 574.63 mGy-cm COMPARISON: CT CT AB PEL WO CON-NO ORAL OR IV on DOS: 11/12/23 FINDINGS: Lung bases: Respiratory motion artifact limits evaluation of the lung bases. Atelectasis visualized in the lung bases. Liver: Subtle nodular contour of the liver, may be seen with cirrhosis in the appropriate clinical setting. Biliary: Mildly distended gallbladder. No calcified gallstones visualized. Spleen: Unremarkable. Pancreas: Grossly unremarkable in its noncontrast enhanced appearance. Adrenal glands: Unremarkable. No mass. Kidneys: No hydronephrosis and no renal or ureteral calculi. Nonspecific mild bilateral perinephric stranding. Aorta/Vascular: Moderate atherosclerotic calcification. No abdominal aortic aneurysm. Retroperitoneum: No mass or lymphadenopathy. Bowel/mesentery: No small bowel obstruction. No free air or free fluid. Appendix is visualized and appears unremarkable. Scattered colonic diverticula without adjacent inflammatory changes to suggest diverticulitis. Pelvic organs: Enlarged prostate with impression on the bladder base. Bladder: Bladder is underdistended and suboptimally evaluated. Circumferential thickening of the bladder wall is nonspecific. Abdominal wall: Small fat containing indirect left inguinal hernia. Bones: No acute fracture or suspicious intraosseous lesion. IMPRESSION: 1. No small bowel obstruction. Normal-appearing appendix. 2. Scattered colonic diverticula without adjacent inflammatory changes to suggest diverticulitis. 3. Circumferential thickening of the bladder wall is nonspecific and may be partly due to underdistention. Correlate clinically to exclude cystitis. 4. Subtle nodular contour of the liver, may be seen with cirrhosis in the appropriate clinical setting. Correlate with clinical findings. Mildly distended gallbladder with no calcified gallstones visualized. Correlate with clinical findings. If clinically indicated, ultrasound could be obtained. 5. Additional findings as detailed above. ATED BY: ANTHONY SIFUENTES DO DICTATED DATE/TIME: 09/01/24850 SIGNED BY: ANTHONY SIFUENTES DO SIGNED DATE/TIME: 09/01/24850 CC: Critical Care Note Critical Care Time?: No Stability Stability form required: No Heart Score Heart Score: Heart Score Response (Comments) Value History N/A 0 EKG N/A 0 Age N/A 0 Risk Factors N/A 0 Troponin N/A 0 Total 0 I personally scribed for DIANA FERRER MD ([email or web address]) on 09/01/24 at 08:11. Electronically submitted by Rula Denney ([email or web address]). I personally scribed for DIANA FERRER MD ([email or web address]) on 09/01/24 at 08:16. Electronically submitted by Rula Denney ([email or web address]). I personally scribed for DIANA FERRER MD ([email or web address]) on 09/01/24 at 10:02. Electronically submitted by Rula Denney ([email or web address]). I personally scribed for DIANA FERRER MD ([email or web address]) on 09/01/24 at 10:47. Electronically submitted by Rula Denney ([email or web address]). DIANA FERRER MD Sep 01, 2024 08:11
--- NOTE | 2024-09-01 08:12 | ED.PDOC ---
GI ASSESSMENT HPI Comments 79-year-old male here with 2 days of mid abdominal pain. Reports positive nausea no vomiting no diarrhea. He states he has a history of chronic constipation and has not had a bowel movement at all in 1 week. And when he does it is very small. Denies any fever or chills. Denies any cough cold runny nose. States pain is constant. Denies any burning with urination. Chief Complaint: Abdominal Pain Time Seen by MD: 07:59 Primary Care Provider: Unknown Allergies: Coded Allergies: NO KNOWN ALLERGIES (Unverified , 06/11/18) Home Meds Active Scripts Acetaminophen (Acetaminophen) 500 Mg Tab, 500 MG PO Q4HP PRN, #20 TAB Prov:ANNAMARIA ARROYO PAC 12/08/23 Levofloxacin Hemihydrate (LEVOFLOXACIN) 750 Mg Tab, 1 TAB PO DAILY for 9 Days, #9 TAB Prov:ANNAMARIA ARROYO PAC 12/08/23 Amlodipine Besylate (NORVASC TABLET) 5 Mg Tb, 10 MG PO DAILY for 30 Days, #60 TAB Prov:JASON ANDREW RESIDENT 11/21/23 Tamsulosin Hcl (Flomax) 0.4 Mg Cap, 0.4 MG PO QPM for 30 Days, #30 CAP Prov:JASON ANDREW RESIDENT 11/21/23 Reported Medications Finasteride (Finasteride) 5 Mg Tab, 1 TAB PO DAILY 11/13/23 Mode of Arrival: Ambulatory Past Medical History PAST MEDICAL HISTORY: Denies Surgical History: Denies all surgeries Family History Family History: Unknown Social History Smoker: Non-Smoker Alcohol: Denies ETOH Use Drugs: Denies Drug Use Lives In: Home Physical Exam Gastrointestinal: Other (Mild diffuse abdominal tenderness to palpation) EKG EKG : Pulse Rate (adult): 65 [place]: Normal Cardiac Rhythm: NSR Block: None Hypertrophy: None ST: Normal X-Ray, Labs, Meds, VS Vital Signs Date Time Temp Pulse Resp B/P (MAP) Pulse Ox O2 Delivery O2 Flow Rate FiO2 09/01/24 08:15 65 09/01/24 08:09 97.6 67 17 178/88 (118) 95 97.6 Time of 1ST Reevaluation: 10:05 Reevaluation 1ST: Unchanged Departure 1 Departure Time of Disposition: 10:05 I personally scribed for DIANA FERRER MD ([email or web address]) on 09/01/24 at 08:15. Electronically submitted by Rula Denney ([email or web address]). I personally scribed for DIANA FERRER MD ([email or web address]) on 09/01/24 at 08:17. Electronically submitted by Rula Denney ([email or web address]). DIANA FERRER MD Sep 01, 2024 08:12
[2024-09-01] MEDS: ONDANSETRON ODT 4 MG TAB PO ONE (08:15)
[2024-09-01 08:31] LABS: Basophils # (auto) 0 10 ^3/uL (0-0.2); Basophils % (auto) 0.6 % (0.0-2.0); Eosinophils # (auto) 0 10 ^3/uL (0-0.8); Eosinophils % (auto) 0.5 % (0.0-7.0); Hematocrit 47.7 % (41.0-53.0); Hemoglobin 16.7 g/dL (13.5-17.5); Lymphocytes # (auto) 1.7 10 ^3/uL (0.4-5.4); Mean Corpuscular Hemoglobin 31.2 pg (28.0-32.0); Mean Corpuscular Hgb Conc. 34.9 g/dL (32.0-36.0); Mean Corpuscular Volume 89.4 fL (80.0-100.0); Monocytes # (auto) 0.4 10 ^3/uL (0-1.3); Monocytes % (auto) 5.1 % (0.0-12.0); Neutrophils % (auto) 69.8 % (37.0-80.0); Platelet Count (auto) 193 10^3/uL (140-450); Red Blood Cells 5.33 10^6/uL (4.5-5.90); Red Cell Distribution Width 14.2 % (11.8-14.3); White Blood Cell 7.2 10^3/uL (4.4-10.8)
[2024-09-01 08:50] VITALS: PULSE 68; RESP 20; O2SAT 97
[2024-09-01 08:52] LABS: Albumin 4.6 g/dL (3.2-4.8); Anion Gap 9 (5-15); Aspartate Aminotransferase 21 U/L (13-40); BUN/Creatinine Ratio 10.5 (10.0-20.0); Blood Urea Nitrogen 9 mg/dL (9-23); Calcium 9.5 mg/dL (8.7-10.4); Carbon Dioxide 28 mmol/L (20-31); Chloride 106 mmol/L (98-107); Potassium 3.7 mmol/L (3.5-5.1); Sodium 143 mmol/L (136-145); Total Protein 7.7 g/dL (5.7-8.2)
--- NOTE | 2024-09-01 08:54 | DVH ---
CLINICAL INFORMATION: 79 years old, Male; Rule out small bowel obstruction. TECHNIQUE: Axial CT images of the abdomen and pelvis were obtained without IV contrast. Coronal and s agittal reformatted images were obtained, reviewed, and stored. Evaluation of the parenchymal organs is limited without IV contrast. Evaluation of the bowel and mesentery is limited without oral contras t. All CT scans at this medical facility are performed using dose modulation techniques as appropriat e to a performed exam including the following: Automated exposure control was utilized; adjustment of the MA and/or KV according to patient size; and use of iterative reconstruction technique. CTDIvol = 9.32 mGy DLP = 574.63 mGy-cm COMPARISON: CT CT AB PEL WO CON-NO ORAL OR IV on DOS: 11/12/23 FINDINGS: Lung bases: Respiratory motion artifact limits evaluation of the lung bases. Atelectasis visualized i n the lung bases. Liver: Subtle nodular contour of the liver, may be seen with cirrhosis in the appropriate clinical se tting. Biliary: Mildly distended gallbladder. No calcified gallstones visualized. Spleen: Unremarkable. Pancreas: Grossly unremarkable in its noncontrast enhanced appearance. Adrenal glands: Unremarkable. No mass. Kidneys: No hydronephrosis and no renal or ureteral calculi. Nonspecific mild bilateral perinephric s tranding. Aorta/Vascular: Moderate atherosclerotic calcification. No abdominal aortic aneurysm. Retroperitoneum: No mass or lymphadenopathy. Bowel/mesentery: No small bowel obstruction. No free air or free fluid. Appendix is visualized and ap pears unremarkable. Scattered colonic diverticula without adjacent inflammatory changes to suggest d iverticulitis. Pelvic organs: Enlarged prostate with impression on the bladder base. Bladder: Bladder is underdistended and suboptimally evaluated. Circumferential thickening of the blad chidi wall is nonspecific. Abdominal wall: Small fat containing indirect left inguinal hernia. Bones: No acute fracture or suspicious intraosseous lesion. IMPRESSION: 1. No small bowel obstruction. Normal-appearing appendix. 2. Scattered colonic diverticula without adjacent inflammatory changes to suggest diverticulitis. 3. Circumferential thickening of the bladder wall is nonspecific and may be partly due to underdisten tion. Correlate clinically to exclude cystitis. 4. Subtle nodular contour of the liver, may be seen with cirrhosis in the appropriate clinical settin g. Correlate with clinical findings. Mildly distended gallbladder with no calcified gallstones visual ized. Correlate with clinical findings. If clinically indicated, ultrasound could be obtained. 5. Additional findings as detailed above.
[2024-09-01 08:59] LABS: Alanine Aminotransferase 60 U/L (7-40); Alkaline Phosphatase 124 U/L (46-116); Glucose 133 mg/dL (74-106); Lipase 56 U/L (12-53)
[2024-09-01 10:54] VITALS: BP 151/81; PULSE 60; RESP 20; TEMP 97.6; O2SAT 95
[2024-09-01 11:24] LABS: Urine Bacteria None Seen /hpf (None Seen)
[2024-09-01 11:53] LABS: Urine Blood Negative /uL (Negative); Urine Clarity Clear (Clear); Urine Color Yellow (Yellow); Urine Mucus FEW (None Seen); Urine Protein, UAD TRACE (Negative); Urine Specific Gravity 1.028 (1.001-1.035); Urine Squamous Epithelial Cell FEW /hpf (<5); Urine Urobilinogen Normal (Negative); Urine WBC 3 /HPF (0-3)
== END 2024-09-01 11:47 | disposition home or self-care (01) ==
LOC: ER 07:53
DX: K74.60 Unspecified cirrhosis of liver (principal); K29.70 Gastritis, unspecified, without bleeding; Z79.899 Other long term (current) drug therapy
CPT/HCPCS: 36415; 74176; 80053; 81001; 83690; 85025; 99284; Q0162

== ENCOUNTER 2024-09-03 00:22 | Emergency (ER) | payer OTHER, MEDICAID ==
[~2024-09-03] VITALS: Ht 165.1 cm; Wt 70.6 kg
--- NOTE | 2024-09-03 01:41 | DVH ---
Procedure: XY KUB ABDOMEN SINGLE VIEW Exam Date: 09/03/2024 01:18 AM History: Constipation Comparison Study: None Technique: Single frontal view of the abdomen Findings/ IMPRESSION: Nonobstructive bowel-gas pattern. Mild fecal retention throughout the colon. No radiopaque foreign ob jects. No acute osseous abnormalities. Lung bases are clear.
--- NOTE | 2024-09-03 01:50 | ED.PDOC ---
GI ASSESSMENT HPI Comments This patient is a 79-year-old male who arrives to the ED today for evaluation of intermittent abdominal pain and nausea concerns. Patient was seen this facility yesterday and sent home with successful medication. Patient arrives today with continued complaints as well as complaints of constipation for several days. Patient denies any fever. Patient denies any recent travel or new food sources. Chief Complaint: Abdominal Pain Time Seen by MD: 00:34 Primary Care Provider: NONE Reviewed Notes: Nurses Notes Allergies: Coded Allergies: NO KNOWN ALLERGIES (Unverified , 06/11/18) Home Meds Active Scripts Lactulose (Lactulose) 10 Gm/15 Ml Eufemia, 10 GM PO BIDP PRN, #150 ML Prov:ANNAMARIA ARROYO [facility] 09/03/24 Ondansetron Odt 4MG Tab (ZOFRAN PO) 4 Mg Tb, 4 MG PO Q6HP PRN, #15 TAB ODT TAB-DISSOLVE IN MOUTH, THEN SWALLOW Prov:ANNAMARIA ARROYO [facility] 09/03/24 Acetaminophen (Acetaminophen) 500 Mg Tab, 500 MG PO Q4HP PRN, #20 TAB Prov:ANNAMARIA ARROYO PAC 12/08/23 Levofloxacin Hemihydrate (LEVOFLOXACIN) 750 Mg Tab, 1 TAB PO DAILY for 9 Days, #9 TAB Prov:ANNAMARIA ARROYO [facility] 12/08/23 Amlodipine Besylate (NORVASC TABLET) 5 Mg Tb, 10 MG PO DAILY for 30 Days, #60 TAB Prov:JASON ANDREW RESIDENT 11/21/23 Tamsulosin Hcl (Flomax) 0.4 Mg Cap, 0.4 MG PO QPM for 30 Days, #30 CAP Prov:JASON ANDREW RESIDENT 11/21/23 Reported Medications Finasteride (Finasteride) 5 Mg Tab, 1 TAB PO DAILY 11/13/23 Information Source: Patient Mode of Arrival: Ambulatory Timing: Days Duration: Since onset Quality: Cramping Vomitus: Food Particles, Soft, Watery Severity: Moderate Recent: None Recent Hx of: Constipation Pain Location: Diffuse, Epigastric Associated sign and symptoms: Nausea, Constipation, Abdominal Pain Past Medical History PAST MEDICAL HISTORY: Denies Surgical History: Denies all surgeries Family History Family History: Unknown Social History Smoker: Non-Smoker Alcohol: Denies ETOH Use Drugs: Denies Drug Use Lives In: Home Constitutional: denies: chills, diaphoresis, fatigue, fever, malaise, sweats, weakness, others EENTM: denies: blurred vision, double vision, ear bleeding, ear discharge, ear drainage, ear pain, ear ringing, eye pain, eye redness, hearing loss, mouth pain, mouth swelling, nasal discharge, nose bleeding, nose congestion, nose pain, photophobia, tearing, throat pain, throat swelling, voice changes, others Respiratory: denies: cough, hemoptysis, orthopnea, SOB at rest, shortness of breath, SOB with excertion, stridor, wheezing, others Cardiovascular: denies: chest pain, dizzy spells, diaphoresis, Dyspnea on exertion, edema, irregular heart beat, left arm pain, lightheadedness, pa lpitations, PND, syncope, others Gastrointestinal: reports: abdominal pain, constipated, nausea; denies: abdomen distended, blood streaked bowels, diarrhea, dysphagia, difficulty swallowing, hematemesis, melena, poor appetite, poor fluid intake, rectal bleeding, rectal pain, vomiting, others Genitourinary: denies: burning, dysuria, flank pain, frequency, hematuria, incontinence, penile discharge, penile sore, pain, testicle pain, testicle swelling, urgency, others Neurological: denies: dizziness, fainting, headache, left sided numbness, left sided weakness, numbness, paresthesia, pre-existing deficit, right sided numbness, right sided weakness, seizure, speech problems, tingling, tremors, weakness, others Musculoskeletal: denies: back pain, gout, joint pain, joint swelling, muscle pain, muscle stiffness, neck pain, others Integumetry: denies: bruises, change in color, change in hair/nails, dryness, laceration, lesions, lumps, rash, wounds, others Allergic/Immunocompromised: denies: Difficulty Healing, Frequent Infections, Hives, Itching, others Hematologic/Lymphatic: denies: anemia, blood clots, easy bleeding, easy bruising, swollen glands, others Endocrine: denies: excessive hunger, excessive sweating, excessive thirst, excessive urination, flushing, intolerance to cold, intolerance to heat, unexplained weight gain, unexplained weight loss, others Psychiatric: denies: anxiety, bipolar disorder, depression, hopeless, panic disorder, schizophrenia, sleepless, suicidal, others Physical Exam General Appearance: Moderate Distress (Moderate distress due to constipation concerns and nausea), Normal HEENT: Normal ENT Inspection, Pharynx Normal, TMs Normal Neck: Full Range of Motion, Non-Tender, Normal, Normal Inspection Respiratory: Chest Non-Tender, Lungs Clear, No Accessory Muscle Use, No Respiratory Distress, Normal Breath Sounds Cardiovascular: No Edema, No JVD, No Murmur, No Gallop, Normal Peripheral Pulses, Regular Rate/Rhythm Breast Exam: Deferred Gastrointestinal: Other (Diffuse periumbilical tenderness to palpation. No pulsatile masses. Abdomen was reasonably soft.) Genitalia: Deferred Pelvic: Deferred Rectal: Deferred Extremities: No calf tenderness, Normal capillary refill, Normal inspection, Normal range of motion, Non-tender, No pedal edema Neurologic: Alert, No Motor Deficits, Normal Affect, Normal Mood, No Sensory Deficits Cerebellar Function: Normal Reflexes: Normal Skin: Dry, Normal Color, Warm Lymphatic: No Adenopathy Was a procedure done? Was a procedure done?: No GI differential Dx Differential Diagnosis: Constipation, Other (Gastroenteritis) X-Ray, Labs, Meds, VS Vital Signs Date Time Temp Pulse Resp B/P (MAP) Pulse Ox O2 Delivery O2 Flow Rate FiO2 09/03/24 00:35 97.5 64 18 167/75 (105) 94 97.5 [place] [address] Ph: [phone] DIAGNOSTIC IMAGING Diagnostic Imaging Report : [id number] Signed PATIENT: EVER MURO ACCT: [id number] UNIT: [id number] : 1945 LOC: ER ROOM / BED: / AGE / SEX: 79 / M ADM STATUS: REG ER SERVICE [id number] ORDERING PHYSICIAN: ANNAMARIA ARROYO PAC PROCEDURE(s): KUB - KUB ABDOMEN SINGLE VIEW REASON: Constipation ORDER NUMBER(s): [id number], ACCESSION NUMBER(s): [id number] Procedure: XY KUB ABDOMEN SINGLE VIEW Exam Date: 09/03/2024 01:18 AM History: Constipation Comparison Study: None Technique: Single frontal view of the abdomen Findings/ IMPRESSION: Nonobstructive bowel-gas pattern. Mild fecal retention throughout the colon. No radiopaque foreign objects. No acute osseous abnormalities. Lung bases are clear. ATED BY: SHERIF CHADWICK DO DICTATED DATE/TIME: 09/03/24138 SIGNED BY: SHERIF CHADWICK DO SIGNED DATE/TIME: 09/03/24138 CC: X-Ray, Labs, Meds, VS Comment All studies performed the ED were evaluated by me personally. Imaging studies were unremarkable for any significant stool retention. Patient was treated for his constipation issues prior to discharge and will be sent home with supportive medication. Advised good hydration and healthy nutrition including high fiber moving forward. Time of 1ST Reevaluation: :53 Reevaluation 1ST: Improved Consultation: PCP Patient Education/Counseling: Diagnosis, Treatment Family Education/Counseling: Diagnosis, Treatment Departure 1 Departure Time of Disposition: :54 Impression: Primary Impression: Constipation Additional Impression: Gastroenteritis Disposition: HOME / SELF CARE / HOMELESS Condition: Stable Additional Instructions: Advised patient utilize medication as needed for symptomatic relief as well as good hydration and healthy nutrition including high fiber foods moving forward. e-Prescriptions Lactulose (Lactulose) 10 Gm/15 Ml Eufemia 10 GM PO BIDP PRN, #150 ML Prov: ANNAMARIA ARROYO [facility] 09/03/24 Ondansetron Odt 4MG Tab (ZOFRAN PO) 4 Mg Tb 4 MG PO Q6HP PRN, #15 TAB ODT TAB-DISSOLVE IN MOUTH, THEN SWALLOW Prov: ANNAMARIA ARROYO [facility] 09/03/24 Discharged With: Self, Friend Critical Care Note Critical Care Time?: No Stability Stability form required: No Heart Score Heart Score: Heart Score Response (Comments) Value History N/A 0 EKG N/A 0 Age N/A 0 Risk Factors N/A 0 Troponin N/A 0 Total 0 I personally scribed for TRE BALDWIN MD ([email or web address]) on 09/03/24 at 02:02. Electronically submitted by Jorge Alberto Thakur ([email or web address]). ANNAMARIA ARROYO PAC Sep 03, 2024 01:50 TRE BALDWIN MD Sep 03, 2024 02:02
[2024-09-03] MEDS ORDERED: ZOFR4T PO (01:55)
[2024-09-03] MEDS ORDERED: LACT10SO3 PO (01:55)
[2024-09-03 02:25] VITALS: BP 149/78; PULSE 67; TEMP 97.9
[2024-09-03] MEDS: FLEET ENEMA(ADULT) 135 ML PR ONE (03:23)
[2024-09-03] MEDS: LACTULOSE 20Gm/30ML SOLN PO ONE (03:23)
[2024-09-03] MEDS: ONDANSETRON ODT 4 MG TAB PO ONE (03:23)
[2024-09-03 03:31] VITALS: RESP 18; O2SAT 98
== END 2024-09-03 03:42 | disposition home or self-care (01) ==
LOC: ER 00:22
DX: K52.9 Noninfective gastroenteritis and colitis, unspecified (principal); K59.00 Constipation, unspecified
CPT/HCPCS: 74018; 99284; Q0162

== ENCOUNTER 2024-09-19 04:27 | Inpatient (IN) | payer OTHER, MEDICAID ==
[~2024-09-19] VITALS: Ht 167.6 cm; Wt 62.0 kg
[~2024-09-19 04:27] MED LIST changes: +LACT10SO3 PO; +ZOFR4T PO
--- NOTE | 2024-09-19 04:54 | ED.PDOC ---
GI ASSESSMENT HPI Comments 79 year old male presents to the ED with a chief complaint of abdominal pain onset last night. Patient states he began experiencing throat pain radiating to epigastric region last night, worsen this morning. Patient describes pain as a burning sensation, 6/10 pain. Patient states he was seen in this ED about 2 weeks ago for similar symptoms that had resolved. PMHx HTN, HLD, liver cirrhosis. Denies nausea, vomiting, diarrhea, fevers, chills, chest pain, shortness of breath. No other symptoms or modifying factors present at this time. Chief Complaint: Abdominal Pain Time Seen by MD: 04:45 Primary Care Provider: NONE Reviewed Notes: Medications, Allergies Allergies: Coded Allergies: NO KNOWN ALLERGIES (Unverified , 06/11/18) Home Meds Active Scripts Lactulose (Lactulose) 10 Gm/15 Ml Eufemia, 10 GM PO BIDP PRN, #150 ML Prov:ANNAMARIA ARROYO PAC 09/03/24 Ondansetron Odt 4MG Tab (ZOFRAN PO) 4 Mg Tb, 4 MG PO Q6HP PRN, #15 TAB ODT TAB-DISSOLVE IN MOUTH, THEN SWALLOW Prov:ANNAMARIA ARROYO [facility] 09/03/24 Acetaminophen (Acetaminophen) 500 Mg Tab, 500 MG PO Q4HP PRN, #20 TAB Prov:ANNAMARIA ARROYO [facility] 12/08/23 Levofloxacin Hemihydrate (LEVOFLOXACIN) 750 Mg Tab, 1 TAB PO DAILY for 9 Days, #9 TAB Prov:ANNAMARIA ARROYO PAC 12/08/23 Amlodipine Besylate (NORVASC TABLET) 5 Mg Tb, 10 MG PO DAILY for 30 Days, #60 TAB Prov:JASON ANDREW RESIDENT 11/21/23 Tamsulosin Hcl (Flomax) 0.4 Mg Cap, 0.4 MG PO QPM for 30 Days, #30 CAP Prov:JASON ANDREW RESIDENT 11/21/23 Reported Medications Finasteride (Finasteride) 5 Mg Tab, 1 TAB PO DAILY 11/13/23 Information Source: Patient Mode of Arrival: Ambulatory Timing: Days Duration: Since onset Prehospital treatment: None Quality: Burning Vomitus: None Severity: Moderate Recent: None Recent Hx of: None Pain Location: Epigastric Associated sign and symptoms: Abdominal Pain Past Medical History PAST MEDICAL HISTORY: High Lipids, HTN, Liver Surgical History: Denies all surgeries Family History Family History: Unknown Social History Smoker: Non-Smoker Alcohol: Denies ETOH Use Drugs: Denies Drug Use Lives In: Home Constitutional: denies: chills, diaphoresis, fatigue, fever, malaise, sweats, weakness, others EENTM: denies: blurred vision, double vision, ear bleeding, ear discharge, ear drainage, ear pain, ear ringing, eye pain, eye redness, hearing loss, mouth pain, mouth swelling, nasal discharge, nose bleeding, nose congestion, nose pain, photophobia, tearing, throat pain, throat swelling, voice changes, others Respiratory: denies: cough, hemoptysis, orthopnea, SOB at rest, shortness of breath, SOB with excertion, stridor, wheezing, others Cardiovascular: denies: chest pain, dizzy spells, diaphoresis, Dyspnea on exertion, edema, irregular heart beat, left arm pain, lightheadedness, palpitations, PND, syncope, others Gastrointestinal: reports: abdominal pain; denies: abdomen distended, blood streaked bowels, constipated, diarrhea, dysphagia, difficulty swallowing, hemat emesis, melena, nausea, poor appetite, poor fluid intake, rectal bleeding, rectal pain, vomiting, others Genitourinary: denies: burning, dysuria, flank pain, frequency, hematuria, incontinence, penile discharge, penile sore, pain, testicle pain, testicle swelling, urgency, others Neurological: denies: dizziness, fainting, headache, left sided numbness, left sided weakness, numbness, paresthesia, pre-existing deficit, right sided numbness, right sided weakness, seizure, speech problems, tingling, tremors, weakness, others Musculoskeletal: denies: back pain, gout, joint pain, joint swelling, muscle pain, muscle stiffness, neck pain, others Integumetry: denies: bruises, change in color, change in hair/nails, dryness, laceration, lesions, lumps, rash, wounds, others Allergic/Immunocompromised: denies: Difficulty Healing, Frequent Infections, Hives, Itching, others Hematologic/Lymphatic: denies: anemia, blood clots, easy bleeding, easy bruising, swollen glands, others Endocrine: denies: excessive hunger, excessive sweating, excessive thirst, excessive urination, flushing, intolerance to cold, intolerance to heat, unexplained weight gain, unexplained weight loss, others Psychiatric: denies: anxiety, bipolar disorder, depression, hopeless, panic disorder, schizophrenia, sleepless, suicidal, others All Other Systems: Reviewed and Negative Physical Exam General Appearance: Moderate Distress, Normal HEENT: Normal ENT Inspection, Pharynx Normal, TMs Normal Neck: Full Range of Motion, Non-Tender, Normal, Normal Inspection Respiratory: Chest Non-Tender, Lungs Clear, No Accessory Muscle Use, No Respiratory Distress, Normal Breath Sounds Cardiovascular: No Edema, No JVD, No Murmur, No Gallop, Normal Peripheral Pul ses, Regular Rate/Rhythm Breast Exam: Deferred Gastrointestinal: No Organomegaly, Non Tender, No Pulsatile Mass, Normal Bowel Sounds, Soft Genitalia: Deferred Pelvic: Deferred Rectal: Deferred Extremities: No calf tenderness, Normal capillary refill, Normal inspection, Normal range of motion, Non-tender, No pedal edema Musculoskeletal : Apperance: Normal Neurologic: Alert, floor worker well service II-XII nml as Tested, No Motor Deficits, Normal Affect, Normal Mood, No Sensory Deficits Cerebellar Function: NOT DONE Reflexes: NOT DONE Skin: Dry, Normal Color, Warm Peripheral Pulses: 3+ Radial (R), 3+ Radial (L) Lymphatic: No Adenopathy Was a procedure done? Was a procedure done?: No GI differential Dx Differential Diagnosis: Constipation, Diverticular disease, Esophagitis, Gastritis/PUD, Gastroenteritis X-Ray, Labs, Meds, VS Vital Signs Date Time Temp Pulse Resp B/P (MAP) Pulse Ox O2 Delivery O2 Flow Rate FiO2 09/19/24 09:33 97.4 71 18 121/72 (88) 96 97.4 09/19/24 09:33 71 18 96 Room Air 09/19/24 07:43 74 20 93 Room Air* 0 21 09/19/24 07:12 97.4 72 16 127/73 (91) 95 97.4 09/19/24 04:47 98.0 76 16 131/72 (91) 96 98.0 Lab Test 09/19/24 06:11 09/19/24 05:10 09/19/24 04:50 Range/Units Troponin I High Sensitivity < 3 L 3 L </=54 ng/L White Blood Count 7.3 4.4-10.8 10^3/uL Red Blood Count 5.55 4.5-5.90 10^6/uL Hemoglobin 16.9 13.5-17.5 g/dL Hematocrit 48.8 41.0-53.0 % Mean Corpuscular Volume 88.0 80.0-100.0 fL Mean Corpuscular Hemoglobin 30.5 28.0-32.0 pg Mean Corpuscular Hemoglobin Concent 34.6 32.0-36.0 g/dL Red Cell Distribution Width 13.9 11.8-14.3 % Platelet Count 149 140-450 10^3/uL Mean Platelet Volume 8.6 6.9-10.8 fL Neutrophils (%) (Auto) 81.8 H 37.0-80.0 % Lymphocytes (%) (Auto) 12.7 10.0-50.0 % Monocytes (%) (Auto) 4.6 0.0-12.0 % Eosinophils (%) (Auto) 0.5 0.0-7.0 % Basophils (%) (Auto) 0.4 0.0-2.0 % Neutrophils # (Auto) 6.0 1.6-8.6 10 ^3/uL Lymphocytes # (Auto) 0.9 0.4-5.4 10 ^3/uL Monocytes # (Auto) 0.3 0-1.3 10 ^3/uL Eosinophils # (Auto) 0 0-0.8 10 ^3/uL Basophils # (Auto) 0 0-0.2 10 ^3/uL Nucleated Red Blood Cells 0.1 % Sodium Level 138 136-145 mmol/L Potassium Level 3.8 3.5-5.1 mmol/L Chloride Level 102 98-107 mmol/L Carbon Dioxide Level 27 20-31 mmol/L Anion Gap 9 5-15 Blood Urea Nitrogen 12 9-23 mg/dL Creatinine 0.92 0.700-1.30 mg/dL Glomerular Filtration Rate Calc 85 >90 mL/min BUN/Creatinine Ratio 13.0 10.0-20.0 Serum Glucose 169 H 74-106 mg/dL Calcium Level 9.4 8.7-10.4 mg/dL Urine Color Yellow Yellow Urine Clarity Clear Clear Urine pH 5.5 5.0-9.0 Urine Specific [place] 1.027 1.001-1.035 Urine Protein Trace H Negative Urine Ketones 1+ H Negative Urine Blood Negative Negative /uL Urine Nitrite Negative Negative Urine Bilirubin Negative Negative Urine Urobilinogen Normal Negative mg/dL Urine Leukocyte Esterase Negative Negative /uL Urine RBC 1 0 - 3 /hpf Urine Microscopic WBC 3 0-3 /HPF Urine Squamous Epithelial Cells Few <5 /hpf Urine Calcium Oxalate Crystals Mod None Seen Urine Bacteria None Seen /hpf Urine Hyaline Casts Few 0 - 2 /lpf Urine Mucus Few None Seen Urine Glucose Normal Normal mg/dL Patient alert. Came in for abdominal pain. Blood sugar elevated. Urinalysis shows ketones. Establish intravenous access. Was given fluids. Possible colitis. WBC within normal limits. Cardiac marker within normal limits. Continues to have abdominal pain. CT scan of the abdomen. Explained to the patient. Continue monitoring. Time of 1ST Reevaluation: 05:15 Reevaluation 1ST: Unchanged Patient Education/Counseling: Diagnosis, Treatment, Prognosis Family Education/Counseling: No Family Present SEPSIS Sepsis Screen Physician Orders Chest Portable (09/19/24 04:47) Electrocardigram (09/19/24 04:47) Electrocardigram (09/19/24 05:47) Electrocardigram (09/19/24 07:47) Ct Ab Pel Wo Con-No Oral Or Iv (09/19/24 10:00) 1 Liter Bolus Of 0.9% Ns (09/19/24 10:15) Vital Signs Date Time Temp Pulse Resp B/P (MAP) Pulse Ox O2 Delivery O2 Flow Rate FiO2 09/19/24 09:33 97.4 71 18 121/72 (88) 96 97.4 09/19/24 09:33 71 18 96 Room Air 09/19/24 07:43 74 20 93 Room Air* 0 21 09/19/24 07:12 97.4 72 16 127/73 (91) 95 97.4 09/19/24 04:47 98.0 76 16 131/72 (91) 96 98.0 Laboratory Tests Test 09/19/24 05:10 White Blood Count 7.3 10^3/uL (4.4-10.8) Departure 1 Departure Time of Disposition: 10:02 Impression: Primary Impression: Acute abdominal pain Additional Impression: Dehydration Disposition: ADMITTED INPATIENT Admit to: Med Surg Condition: Guarded Critical Care Note Critical Care Time?: No Stability Stability form required: No Heart Score Heart Score: Heart Score Response (Comments) Value History Slightly Suspicious 0 EKG Normal 0 Age >65 2 Risk Factors >3 or Hx ASHD 2 Troponin Normal limit 0 Total 4 I personally scribed for CRUZITO CANTRELL MD ([email or web address]) on 09/19/24 at 04:54. Electronically submitted by Yadira Mcgregor ([email or web address]). CRUZITO CANTRELL MD Sep 19, 2024 04:54 PB SHETH MD Sep 19, 2024 10:00
--- NOTE | 2024-09-19 05:12 | DVH ---
CHEST RADIOGRAPH Indication: epigastric pain Technique: Single frontal view of the chest was obtained COMPARISON: None FINDINGS: Lines and Tubes: None Lungs: Bibasilar subsegmental atelectasis Pleura: No effusion. No pneumothorax. Cardiomediastinal contours: Unremarkable Bones: Unremarkable IMPRESSION: Bibasilar subsegmental atelectasis.
[2024-09-19 05:27] LABS: Urine Blood Negative /uL (Negative); Urine Clarity Clear (Clear); Urine Color Yellow (Yellow); Urine Hyaline Cast FEW /lpf (0 - 2); Urine Mucus FEW (None Seen); Urine Protein, UAD TRACE (Negative); Urine Specific Gravity 1.027 (1.001-1.035); Urine Squamous Epithelial Cell FEW /hpf (<5); Urine Urobilinogen Normal (Negative); Urine WBC 3 /HPF (0-3); Urine pH 5.5 (5.0-9.0)
[2024-09-19 05:50] LABS: Basophils # (auto) 0 10 ^3/uL (0-0.2); Basophils % (auto) 0.4 % (0.0-2.0); Eosinophils # (auto) 0 10 ^3/uL (0-0.8); Eosinophils % (auto) 0.5 % (0.0-7.0); Hematocrit 48.8 % (41.0-53.0); Hemoglobin 16.9 g/dL (13.5-17.5); Lymphocytes # (auto) 0.9 10 ^3/uL (0.4-5.4); Lymphocytes % (auto) 12.7 % (10.0-50.0); Mean Corpuscular Hemoglobin 30.5 pg (28.0-32.0); Mean Corpuscular Hgb Conc. 34.6 g/dL (32.0-36.0); Monocytes # (auto) 0.3 10 ^3/uL (0-1.3); Monocytes % (auto) 4.6 % (0.0-12.0); Neutrophils % (auto) 81.8 % (37.0-80.0); Nucleated Red Blood Cells % 0.1 %; Platelet Count (auto) 149 10^3/uL (140-450); Red Blood Cells 5.55 10^6/uL (4.5-5.90); Red Cell Distribution Width 13.9 % (11.8-14.3); White Blood Cell 7.3 10^3/uL (4.4-10.8)
[2024-09-19 06:06] LABS: Anion Gap 9 (5-15); Carbon Dioxide 27 mmol/L (20-31); Chloride 102 mmol/L (98-107); Potassium 3.8 mmol/L (3.5-5.1); Sodium 138 mmol/L (136-145)
[2024-09-19 06:07] LABS: Calcium 9.4 mg/dL (8.7-10.4)
[2024-09-19 06:12] LABS: Blood Urea Nitrogen 12 mg/dL (9-23)
[2024-09-19 06:23] LABS: Glucose 169 mg/dL (74-106)
[2024-09-19 07:43] VITALS: PULSE 74; RESP 20; O2SAT 93
[2024-09-19] MEDS: SODIUM CHLORIDE 0.9% 1,000 ML IV ONE (10:31)
--- NOTE | 2024-09-19 10:32 | DVH ---
Procedure: CT CT AB PEL WO CON-NO ORAL OR IV 09/19/2024 09:59 AM Indication: colitis Comparison Study: CT CT AB PEL WO CON-NO ORAL OR IV on DOS: 09/01/24, CT CT AB PEL WO CON-NO ORAL OR IV on DOS: 11/12/23 Technique: Axial images were obtained and reformatted in coronal and sagittal planes. All CT scans at this medical facility are performed using dose modulation techniques as appropriate to a performed e xam including the following: Automated exposure control was utilized; adjustment of the MA and/or KV according to patient size; and use of iterative reconstruction technique. CT Dose: CTDI volume is 7.8 1 mGy. Dose-length product is 481.88 mGy*cm FINDINGS: Lower Chest: Unremarkable. Hepatobiliary: Unremarkable. Spleen: Unremarkable. Pancreas: Unremarkable. Adrenal Glands: Unremarkable. tract: The kidneys are normal in size bilaterally without hydronephrosis or nephrolithiasis. Mild diffuse bladder wall thickening could be at least in part due to lack of distention. GI tract: The stomach is grossly normal in appearance. No evidence of small bowel obstruction. Scatte red colonic diverticula are noted without evidence of diverticulitis. No colonic wall thickening or p ericolonic inflammation. The appendix is normal. Lymphatics: No mesenteric, retroperitoneal or periportal lymphadenopathy. Vasculature: Aorta is normal in caliber. Scattered calcified plaques are noted. Pelvic Organs: Prostate is moderately enlarged. Bones/soft tissues: No acute to abnormality. Other: None. IMPRESSION: 1. No CT evidence for acute intra-abdominal or intrapelvic process. Specifically, no signs of colitis , enteritis or diverticulitis. 2. Mild diffuse bladder wall thickening that could be at least in part due to lack of distention or c hronic outlet obstruction due to moderate prostatic hyperplasia. The differential diagnosis includes cystitis. Recommend clinical and biochemical correlation.
[2024-09-19] MEDS: SODIUM CHLORIDE 0.9% 1,000 ML IV SCH (12:30)
[2024-09-19] MEDS ORDERED: LACTULOSE 20Gm/30ML SOLN PO PRN (12:30)
[2024-09-19] MEDS ORDERED: DOCUSATE SOD 100 MG CAP PO PRN (12:30)
[2024-09-19] MEDS ORDERED: ONDANSETRON HCL 4 MG/2 ML VIAL IV PRN (12:30)
[2024-09-19] MEDS ORDERED: HYDROcodone-ACET 5/325MG TAB PO PRN (12:30)
[2024-09-19] MEDS ORDERED: MIRT1TAB PO (12:36)
[2024-09-19] MEDS ORDERED: AMLO1TAB22 PO (12:36)
--- NOTE | 2024-09-19 13:07 | DVHHP2 ---
History of Present Illness Reason for Visit: Abdominal pain History of Present Illness Ollie Matos is a 79-year-old male with past medical history of hypertension, and hyperlipidemia, who came to the hospital with complaints of epigastric abdominal pain. Patient states he has been having this pain intermittently for months. He was seen her a couple weeks ago with similar complaints. Patient also complains of constipation. States his last bowel movement was 3 days ago. Cardiovascular: HTN, hyperipidemia Past Surgical History: None Smoke: No ALCOHOL: none Drugs: None Lives: Alone Domestic Violence: Neg Review of Systems Constitutional: No: Fever, Chills, Sweats, Weakness, Malaise, Other Eyes: No: Pain, Vision change, Conjunctivae inflammation, Eyelid inflammation, Other, Redness ENT: No: Ear pain, Ear discharge, Nose pain, Nose discharge, Nose congestion, Mouth pain, Mouth swelling, Throat pain, Throat swelling, Other Respiratory: No: Cough, Dry, Shortness of breath, SOB with excertion, Wheezing, Hemoptysis, Pleuritic Pain, Sputum, Wheezing, Other Cardiovascular: No: Chest Pain, Palpitations, Orthopnea, Paroxysmal Noc. Dyspnea, Edema, Lt Headedness, Other Gastrointestinal: Nausea, Abdominal Pain, Constipation; No: Vomiting, Diarrhea, Melena, Hematochezia, Other Genitourinary: No Dysuria, No Frequency, No Incontinence, No Hematuria, No Retention, No Other Musculoskeletal: No: other, neck pain, shoulder pain, arm pain, back pain, hand pain, leg pain, foot pain Skin: No: Rash, Lesions, Jaundice, Bruising, Other Neurological: No: Weakness, Numbness, Incoordination, Change in speech, Confusion, Seizures, Other Allergies: Coded Allergies: NO KNOWN ALLERGIES (Unverified , 06/11/18) Medications Current Medications Medications Dose Ordered Sig/Luz Maria Route Start Time Stop Time Status Last Admin Dose Admin Lactulose 30 ml DAILYPRN PRN PO 09/19/24 12:30 Exam Vital Signs Vital Signs Date Time Temp Pulse Resp B/P (MAP) Pulse Ox O2 Delivery O2 Flow Rate FiO2 09/19/24 11:56 60 18 148/73 (98) 96 09/19/24 09:33 97.4 97.4 09/19/24 09:33 Room Air 09/19/24 07:43 0 21 General Appearance: Alert, Oriented X3, Cooperative, No acute distress HEENT: Atraumatic, PERRLA Respiratory: Clear to auscultation, Normal air movement Cardiovascular: Regular rate, Normal S1 Abdominal: Normal bowel sounds, Soft, Other (C/O epigastric pain) Extremities: No clubbing, No cyanosis, No edema, Normal pulses Skin: No rashes, No significant lesion Neuro: Normal gait, Normal speech, Strength at 5/5 X4 ext, Normal tone Psych/Mental Status: Mental status NL, Mood NL Labs/Xrays Labs Test 09/19/24 06:11 09/19/24 05:10 09/19/24 04:50 Range/Units Troponin I High Sensitivity < 3 L </=54 ng/L White Blood Count 7.3 4.4-10.8 10^3/uL Red Blood Count 5.55 4.5-5.90 10^6/uL Hemoglobin 16.9 13.5-17.5 g/dL Hematocrit 48.8 41.0-53.0 % Mean Corpuscular Volume 88.0 80.0-100.0 fL Mean Corpuscular Hemoglobin 30.5 28.0-32.0 pg Mean Corpuscular Hemoglobin Concent 34.6 32.0-36.0 g/dL Red Cell Distribution Width 13.9 11.8-14.3 % Platelet Count 149 140-450 10^3/uL Mean Platelet Volume 8.6 6.9-10.8 fL Neutrophils (%) (Auto) 81.8 H 37.0-80.0 % Lymphocytes (%) (Auto) 12.7 10.0-50.0 % Monocytes (%) (Auto) 4.6 0.0-12.0 % Eosinophils (%) (Auto) 0.5 0.0-7.0 % Basophils (%) (Auto) 0.4 0.0-2.0 % Neutrophils # (Auto) 6.0 1.6-8.6 10 ^3/uL Lymphocytes # (Auto) 0.9 0.4-5.4 10 ^3/uL Monocytes # (Auto) 0.3 0-1.3 10 ^3/uL Eosinophils # (Auto) 0 0-0.8 10 ^3/uL Basophils # (Auto) 0 0-0.2 10 ^3/uL Nucleated Red Blood Cells 0.1 % Sodium Level 138 136-145 mmol/L Potassium Level 3.8 3.5-5.1 mmol/L Chloride Level 102 98-107 mmol/L Carbon Dioxide Level 27 20-31 mmol/L Anion Gap 9 5-15 Blood Urea Nitrogen 12 9-23 mg/dL Creatinine 0.92 0.700-1.30 mg/dL Glomerular Filtration Rate Calc 85 >90 mL/min BUN/Creatinine Ratio 13.0 10.0-20.0 Serum Glucose 169 H 74-106 mg/dL Calcium Level 9.4 8.7-10.4 mg/dL Urine Color Yellow Yellow Urine Clarity Clear Clear Urine pH 5.5 5.0-9.0 Urine Specific [place] 1.027 1.001-1.035 Urine Protein Trace H Negative Urine Ketones 1+ H Negative Urine Blood Negative Negative /uL Urine Nitrite Negative Negative Urine Bilirubin Negative Negative Urine Urobilinogen Normal Negative mg/dL Urine Leukocyte Esterase Negative Negative /uL Urine RBC 1 0 - 3 /hpf Urine Microscopic WBC 3 0-3 /HPF Urine Squamous Epithelial Cells Few <5 /hpf Urine Calcium Oxalate Crystals Mod None Seen Urine Bacteria None Seen /hpf Urine Hyaline Casts Few 0 - 2 /lpf Urine Mucus Few None Seen Urine Glucose Normal Normal mg/dL CHEST RADIOGRAPH FINDINGS: Lines and Tubes: None Lungs: Bibasilar subsegmental atelectasis Pleura: No effusion. No pneumothorax. Cardiomediastinal contours: Unremarkable Bones: Unremarkable IMPRESSION: Bibasilar subsegmental atelectasis. Procedure: CT CT AB PEL WO CON-NO ORAL OR IV 09/19/2024 09:59 AM FINDINGS: Lower Chest: Unremarkable. Hepatobiliary: Unremarkable. Spleen: Unremarkable. Pancreas: Unremarkable. Adrenal Glands: Unremarkable. tract: The kidneys are normal in size bilaterally without hydronephrosis or nephrolithiasis. Mild diffuse bladder wall thickening could be at least in part due to lack of distention. GI tract: The stomach is grossly normal in appearance. No evidence of small bowel obstruction. Scattered colonic diverticula are noted without evidence of diverticulitis. No colonic wall thickening or pericolonic inflammation. The appendix is normal. Lymphatics: No mesenteric, retroperitoneal or periportal lymphadenopathy. Vasculature: Aorta is normal in caliber. Scattered calcified plaques are noted. Pelvic Organs: Prostate is moderately enlarged. Bones/soft tissues: No acute to abnormality. Other: None. IMPRESSION: 1. No CT evidence for acute intra-abdominal or intrapelvic process. Specifically, no signs of colitis, enteritis or diverticulitis. 2. Mild diffuse bladder wall thickening that could be at least in part due to lack of distention or chronic outlet obstruction due to moderate prostatic hyperplasia. The differential diagnosis includes cystitis. Recommend clinical and biochemical correlation. Assessment/Plan Assessment/Plan Assessment: Acute abdominal pain, Constipation, Hypertension, Hyperlipidemia, Plan: Admit to Med-Surg, GI consult, Laxatives, Suppository, IV Protonix, IV hydration, Clear liquid diet, Home medications reconciled, Plan discussed with: Patient My Orders Orders - NATALIYA ROCHE Procedure Category Date Status Time Lactulose Oral PHA 09/19/24 Logged 12:30 Lactulose Oral PHA 09/19/24 Logged 12:30 Glycerin Adult PHA 09/19/24 Logged Suppository (Glycerin 12:30 * [facility] [employer] Director CONS 09/19/24 Transmitted 12:29 Admit ADMIT 09/19/24 Transmitted 12:30 Code Status CODE 09/19/24 Transmitted 12:30 0.9% Ns 1000 Ml PHA 09/19/24 Transmitted 12:30 Hydrocodone-Acet PHA 09/19/24 Transmitted 5/325mg Tab ([place] 12:30 Ondansetron Hcl PHA 09/19/24 Transmitted (Zofran) 12:30 Docusate Sodium PHA 09/19/24 Transmitted Capsule (Colace 12:30 Complete Blood Count LAB 09/20/24 Verified 04:00 Comprehensive LAB 09/20/24 Verified Metabolic Panel 04:00 Condition: Serious DULCE 09/19/24 In Process 12:30 Acetaminophen Tablet PHA 09/19/24 Transmitted (Tylenol Tablet) 12:30 Clear Liq Diet DIET 09/19/24 Transmitted Lunch Finasteride Tablet PHA 09/20/24 Transmitted (Proscar Tablet) 10:00 Tamsulosin PHA 09/19/24 Transmitted Hydrochloride (Flomax) 18:00 Amlodipine Tablet PHA 09/20/24 Transmitted (Norvasc Tablet) 10:00 (Nf) Mirtazapine PHA 09/20/24 Transmitted (Mirtazapine Oral 10:00 Date of Service: Sep 19, 2024 Billing Provider: NATALIYA RCOHE Common Visit Codes: [id number] INP/OBS CARE (MOD) NATALIYA ROCHE [facility] Sep 19, 2024 13:07
[2024-09-19] MEDS: LACTULOSE 20Gm/30ML SOLN PO ONE (13:29)
[2024-09-19] MEDS: GLYCERIN ADULT RECTAL SUPP PR ONE (13:59)
[2024-09-19] MEDS: TAMSULOSIN HYDROCHLORIDE 0.4 MG CAP PO SCH (19:45)
[2024-09-19 21:45] VITALS: BP 156/77; PULSE 68; RESP 18; TEMP 98.2; O2SAT 94
[2024-09-19] MEDS: PANTOPRAZOLE 40 MG/10 ML VIAL INJ IV SCH (22:41)
[2024-09-19] MEDS ORDERED: PRAV20TA3 PO (23:05)
[2024-09-19] MEDS ORDERED: DOCU-94 PO (23:05)
[2024-09-19] MEDS ORDERED: MELO15TA29 PO (23:05)
[2024-09-19] MEDS ORDERED: TRAZ300T16 PO (23:05)
[2024-09-20] VITALS (8 sets, daily range): BP systolic 98–140; BP diastolic 58–74; PULSE 60–81; RESP 16–18; TEMP 97.5–98.1; O2SAT 92–97
[2024-09-20 06:52] LABS: Basophils # (auto) 0 10 ^3/uL (0-0.2); Basophils % (auto) 0.5 % (0.0-2.0); Eosinophils # (auto) 0.1 10 ^3/uL (0-0.8); Eosinophils % (auto) 1.2 % (0.0-7.0); Hematocrit 41.4 % (41.0-53.0); Hemoglobin 14.3 g/dL (13.5-17.5); Lymphocytes # (auto) 1.6 10 ^3/uL (0.4-5.4); Lymphocytes % (auto) 30.7 % (10.0-50.0); Mean Corpuscular Hemoglobin 30.4 pg (28.0-32.0); Mean Corpuscular Hgb Conc. 34.6 g/dL (32.0-36.0); Monocytes # (auto) 0.4 10 ^3/uL (0-1.3); Monocytes % (auto) 7.5 % (0.0-12.0); Neutrophils # (auto) 3.1 10 ^3/uL (1.6-8.6); Neutrophils % (auto) 60.1 % (37.0-80.0); Platelet Count (auto) 130 10^3/uL (140-450); Red Blood Cells 4.71 10^6/uL (4.5-5.90); White Blood Cell 5.1 10^3/uL (4.4-10.8)
[2024-09-20 07:02] LABS: Alanine Aminotransferase 9 U/L (7-40); Albumin 3.6 g/dL (3.2-4.8); Alkaline Phosphatase 54 U/L (46-116); Anion Gap 9 (5-15); Aspartate Aminotransferase 12 U/L (<34); BUN/Creatinine Ratio 12.3 (10.0-20.0); Blood Urea Nitrogen 8 mg/dL (9-23); Calcium 9.2 mg/dL (8.7-10.4); Carbon Dioxide 25 mmol/L (20-31); Chloride 109 mmol/L (98-107); Glucose 100 mg/dL (74-106); Potassium 3.8 mmol/L (3.5-5.1); Sodium 143 mmol/L (136-145); Total Protein 5.9 g/dL (5.7-8.2)
[2024-09-20] MEDS ORDERED: FINASTERIDE 5 MG TAB PO SCH (10:00)
[2024-09-20] MEDS: amLODIPine BESYLATE 5 MG TAB PO SCH (10:23)
[2024-09-20] MEDS: ACETAMINOPHEN 325 MG TAB PO PRN (10:33)
--- NOTE | 2024-09-20 13:15 | DVHPN2 ---
Reviewed: Care Plan, H&P, Medications, Previous Orders, Radiology Changes from previous H/P or p: No Changes Eyes: No Pain, No Vision change, No Conjunctivae inflammation, No Eyelid inflammation, No Other, No Redness ENT: No Ear pain, No Ear discharge, No Nose pain, No Nose discharge, No Nose congestion, No Mouth pain, No Mouth swelling, No Throat pain, No Throat swelling, No Other Cardiovascular: No Chest Pain, No Palpitations, No Orthopnea, No Paroxysmal Noc. Dyspnea, No Edema, No Lt Headedness, No Other Respiratory: No Cough, No Dry, No Shortness of breath, No SOB with excertion, No Wheezing, No Hemoptysis, No Pleuritic Pain, No Sputum, No Other Gastrointestinal: Nausea; No Vomiting; Abdominal Pain; No Diarrhea; C onstipation; No Melena, No Hematochezia, No Other Genitourinary: No Dysuria, No Frequency, No Incontinence, No Hematuria, No Retention, No Other Musculoskeletal: No other, No neck pain, No shoulder pain, No arm pain, No back pain, No hand pain, No leg pain, No foot pain Skin: No Rash, No Lesions, No Jaundice, No Bruising, No Other Objective Vitals Vital Signs Date Time Temp Pulse Resp B/P (MAP) Pulse Ox O2 Delivery O2 Flow Rate FiO2 09/20/24 10:23 127/74 09/20/24 09:00 98.1 62 16 97 98.1 09/20/24 08:15 Room Air* 0 21 Intake/Output Intake and Output 09/20/24 07:00 Intake Total 200 ml Output Total 500 ml Balance -300 ml Intake Oral 200 ml Output Urine Total 500 ml Medications Current Medications Medications Dose Ordered Sig/Luz Maria Route Start Time Stop Time Status Last Admin Dose Admin Lactulose 30 ml DAILYPRN PRN PO 09/19/24 12:30 Sodium Chloride 1,000 ml @ 75 mls/hr [id number] IV 09/19/24 12:30 09/20/24 01:37 75 MLS/HR Acetaminophen/ Hydrocodone Bitart 1 tab Q4HP PRN PO 09/19/24 12:30 Ondansetron HCl 4 mg Q4HP PRN IV 09/19/24 12:30 Docusate Sodium 100 mg BIDPRN PRN PO 09/19/24 12:30 Acetaminophen 650 mg Q6HP PRN PO 09/19/24 12:30 09/20/24 10:33 650 MG Finasteride 5 mg DAILY PO 09/20/24 10:00 UNV Tamsulosin HCl 0.4 mg QPM PO 09/19/24 18:00 09/19/24 19:45 0.4 MG Amlodipine Besylate 5 mg DAILY PO 09/20/24 10:00 09/20/24 10:23 5 MG Patient Own Medication 1 tab DAILY PO 09/20/24 10:00 Pantoprazole Sodium 40 mg BID IV 09/19/24 22:00 09/20/24 10:23 40 MG Laboratory Results Laboratory Tests 09/20/24 05:51 Chemistry Test 09/20/24 05:51 Albumin 3.6 g/dL (3.2-4.8) Calcium Level 9.2 mg/dL (8.7-10.4) Total Protein 5.9 g/dL (5.7-8.2) LFT Test 09/20/24 05:51 Alanine Aminotransferase (ALT) 9 U/L (7-40) Alkaline Phosphatase 54 U/L (46-116) Aspartate Amino Transferase (AST) 12 U/L (<34) Total Bilirubin 1.0 mg/dL (0.2-1.0) Urinalysis Test 09/19/24 04:50 Urine Color Yellow (Yellow) Urine Clarity Clear (Clear) Urine pH 5.5 (5.0-9.0) Urine Specific [place] 1.027 (1.001-1.035) Urine Protein Trace (Negative) H Urine Ketones 1+ (Negative) H Urine Blood Negative /uL (Negative) Urine Nitrite Negative (Negative) Urine Bilirubin Negative (Negative) Urine Urobilinogen Normal mg/dL (Negative) Urine Leukocyte Esterase Negative /uL (Negative) Urine RBC 1 /hpf (0 - 3) Urine Microscopic WBC 3 /HPF (0-3) Urine Squamous Epithelial Cells Few /hpf (<5) Urine Calcium Oxalate Crystals Mod (None Seen) Urine Bacteria /hpf (None Seen) Urine Hyaline Casts Few /lpf (0 - 2) Urine Mucus Few (None Seen) Urine Glucose Normal mg/dL (Normal) Labs and/or images reviewed: Labs reviewed by me, Image(s) reviewed by me Assessment/Plan Assessment/Plan Acute epigastric abdominal pain: CT abdomen pelvis without contrast negative lipase pending, pantoprazole GI consult by Dr. Asuncion Ramirez Constipation, Hypertension, Hyperlipidemia, Plan discussed with: Patient My Orders Orders - ROBERT CARBAJAL MD Procedure Category Date Status Time Lipase LAB 09/20/24 Transmitted 13:13 Date of Service: Sep 20, 2024 Billing Provider: ROBERT CARBAJAL MD Common Visit Codes: [id number] INP/OBS CARE(HIGH) ROBERT CARBAJAL MD Sep 20, 2024 13:15
--- NOTE | 2024-09-20 13:50 | DVHINCON2 ---
GI Consult Consult Note GI consult note Date of Consultation: 09/20/2024 Chief Complaint: Abdominal pain constipation Referring Physician: Kareme WEEKS H&P: 79-year-old male with past medical history of hypertension and hyperlipidemia, presents to the hospital with complains of epigastric abdominal pain. Patient also is complaining of constipation for the past six months. Bowel movement once a week. Also having decreased appetite. Weight loss 4-5 lb in the last two months. Denies melena or red blood in stool, no nausea or vomiting. Denies hematemesis. No EGD or colonoscopy in the past Past Medical History: Hypertension, hyperlipidemia Past Surgical History: Denies Social History: NO smoking, drinking ETOH and use of illegal drugs. Family History: Noncontributory Review of Systems: Constitutional: no fever, chill, weight loss HEENT: no eye pain, no hearing loss, no oral lesion, no scleral icterus Heart: no chest pain, no chest pressure Lung: no cough, no dyspnea with exertion Abdomen: see HPI Physical exam: General: NAD, AAOX3 Chest: lung amato clear to auscultation Heart: RRR, no murmur Abdomen: non-distended, mild upper abdominal tenderness to palpation, +BS Labs: Labs Test 09/20/24 05:51 09/19/24 06:11 09/19/24 04:50 Range/Units White Blood Count 5.1 # 4.4-10.8 10^3/uL Red Blood Count 4.71 4.5-5.90 10^6/uL Hemoglobin 14.3 # 13.5-17.5 g/dL Hematocrit 41.4 # 41.0-53.0 % Mean Corpuscular Volume 88.0 80.0-100.0 fL Mean Corpuscular Hemoglobin 30.4 28.0-32.0 pg Mean Corpuscular Hemoglobin Concent 34.6 32.0-36.0 g/dL Red Cell Distribution Width 14.0 11.8-14.3 % Platelet Count 130 L 140-450 10^3/uL Mean Platelet Volume 8.6 6.9-10.8 fL Neutrophils (%) (Auto) 60.1 37.0-80.0 % Lymphocytes (%) (Auto) 30.7 10.0-50.0 % Monocytes (%) (Auto) 7.5 0.0-12.0 % Eosinophils (%) (Auto) 1.2 0.0-7.0 % Basophils (%) (Auto) 0.5 0.0-2.0 % Neutrophils # (Auto) 3.1 1.6-8.6 10 ^3/uL Lymphocytes # (Auto) 1.6 0.4-5.4 10 ^3/uL Monocytes # (Auto) 0.4 0-1.3 10 ^3/uL Eosinophils # (Auto) 0.1 0-0.8 10 ^3/uL Basophils # (Auto) 0 0-0.2 10 ^3/uL Nucleated Red Blood Cells 0.0 % Sodium Level 143 # 136-145 mmol/L Potassium Level 3.8 3.5-5.1 mmol/L Chloride Level 109 H 98-107 mmol/L Carbon Dioxide Level 25 20-31 mmol/L Anion Gap 9 5-15 Blood Urea Nitrogen 8 L 9-23 mg/dL Creatinine 0.65 L 0.700-1.30 mg/dL Glomerular Filtration Rate Calc 96 >90 mL/min BUN/Creatinine Ratio 12.3 10.0-20.0 Serum Glucose 100 74-106 mg/dL Calcium Level 9.2 8.7-10.4 mg/dL Total Bilirubin 1.0 0.2-1.0 mg/dL Aspartate Amino Transferase (AST) 12 <34 U/L Alanine Aminotransferase (ALT) 9 7-40 U/L Alkaline Phosphatase 54 46-116 U/L Total Protein 5.9 5.7-8.2 g/dL Albumin 3.6 3.2-4.8 g/dL Troponin I High Sensitivity < 3 L </=54 ng/L Urine Color Yellow Yellow Urine Clarity Clear Clear Urine pH 5.5 5.0-9.0 Urine Specific [place] 1.027 1.001-1.035 Urine Protein Trace H Negative Urine Ketones 1+ H Negative Urine Blood Negative Negative /uL Urine Nitrite Negative Negative Urine Bilirubin Negative Negative Urine Urobilinogen Normal Negative mg/dL Urine Leukocyte Esterase Negative Negative /uL Urine RBC 1 0 - 3 /hpf Urine Microscopic WBC 3 0-3 /HPF Urine Squamous Epithelial Cells Few <5 /hpf Urine Calcium Oxalate Crystals Mod None Seen Urine Bacteria None Seen /hpf Urine Hyaline Casts Few 0 - 2 /lpf Urine Mucus Few None Seen Urine Glucose Normal Normal mg/dL Imaging: CT abdomen pelvis IMPRESSION: 1. No CT evidence for acute intra-abdominal or intrapelvic process. Specif ically, no signs of colitis, enteritis or diverticulitis. 2. Mild diffuse bladder wall thickening that could be at least in part due to lack of distention or chronic outlet obstruction due to moderate prostatic hyperplasia. The differential diagnosis includes cystitis. Recommend clinical and biochemical correlation. Assessment: Abdominal pain Constipation Plan: Discussed with Dr. James Fields's enema Full liquid diet We will continue to follow patient Possible EGD and colonoscopy to be planned on an outpatient basis Thank you for this consult Date of Service: Sep 20, 2024 Billing Provider: DYLAN CARBAJAL Common Visit Codes: CONSULT ONLY Consultation Codes: [id number] CONSULT <45MIN DYLAN CARBAJAL Sep 20, 2024 13:50
[2024-09-20] MEDS: POLYETHYLENE GLYCOL 17 GM PWDR PO ONE (15:29)
[2024-09-20] MEDS ORDERED: FLEET MINERAL OIL ENEMA 133 ML PR ONE (23:14)
[2024-09-20] MEDS: FLEET MINERAL OIL ENEMA 133 ML PR ONE (23:21)
[2024-09-21 01:00] VITALS: BP 121/71; PULSE 67; RESP 17; TEMP 98.1; O2SAT 94
[2024-09-21 05:00] VITALS: BP 124/65; PULSE 77; RESP 18; TEMP 98; O2SAT 97
[2024-09-21 08:10] VITALS: PULSE 70; RESP 16; O2SAT 95
[2024-09-21 09:00] VITALS: BP 117/69; PULSE 70; RESP 20; TEMP 96.1; O2SAT 95
--- NOTE | 2024-09-21 11:51 | DVHPN2 ---
Reviewed: Care Plan, H&P, Medications, Previous Orders, Radiology Changes from previous H/P or p: No Changes Eyes: No Pain, No Vision change, No Conjunctivae inflammation, No Eyelid inflammation, No Other, No Redness ENT: No Ear pain, No Ear discharge, No Nose pain, No Nose discharge, No Nose congestion, No Mouth pain, No Mouth swelling, No Throat pain, No Throat swelling, No Other Cardiovascular: No Chest Pain, No Palpitations, No Orthopnea, No Paroxysmal Noc. Dyspnea, No Edema, No Lt Headedness, No Other Respiratory: No Cough, No Dry, No Shortness of breath, No SOB with excertion, No Wheezing, No Hemoptysis, No Pleuritic Pain, No Sputum, No Other Gastrointestinal: Nausea; No Vomiting; Abdominal Pain; No Diarrhea; C onstipation; No Melena, No Hematochezia, No Other Genitourinary: No Dysuria, No Frequency, No Incontinence, No Hematuria, No Retention, No Other Musculoskeletal: No other, No neck pain, No shoulder pain, No arm pain, No back pain, No hand pain, No leg pain, No foot pain Skin: No Rash, No Lesions, No Jaundice, No Bruising, No Other Objective Vitals Vital Signs Date Time Temp Pulse Resp B/P (MAP) Pulse Ox O2 Delivery O2 Flow Rate FiO2 09/21/24 09:39 117/69 09/21/24 09:00 96.1 70 20 95 96.1 09/21/24 08:10 Room Air* 0 21 Intake/Output Intake and Output 09/21/24 06:59 Intake Total 2375 ml Balance 2375 ml Intake Oral 1300 ml IV Total 1075 ml # Voids 6 Medications Current Medications Medications Dose Ordered Sig/Luz Maria Route Start Time Stop Time Status Last Admin Dose Admin Lactulose 30 ml DAILYPRN PRN PO 09/19/24 12:30 Sodium Chloride 1,000 ml @ 75 mls/hr [id number] IV 09/19/24 12:30 09/20/24 18:04 75 MLS/HR Acetaminophen/ Hydrocodone Bitart 1 tab Q4HP PRN PO 09/19/24 12:30 Ondansetron HCl 4 mg Q4HP PRN IV 09/19/24 12:30 Docusate Sodium 100 mg BIDPRN PRN PO 09/19/24 12:30 Acetaminophen 650 mg Q6HP PRN PO 09/19/24 12:30 09/20/24 10:33 650 MG Finasteride 5 mg DAILY PO 09/20/24 10:00 UNV Tamsulosin HCl 0.4 mg QPM PO 09/19/24 18:00 09/20/24 18:01 0.4 MG Amlodipine Besylate 5 mg DAILY PO 09/20/24 10:00 09/21/24 09:39 5 MG Patient Own Medication 1 tab DAILY PO 09/20/24 10:00 Pantoprazole Sodium 40 mg BID IV 09/19/24 22:00 09/21/24 09:38 40 MG Laboratory Results Laboratory Tests 09/20/24 05:51 Urinalysis Test 09/19/24 04:50 Urine Color Yellow (Yellow) Urine Clarity Clear (Clear) Urine pH 5.5 (5.0-9.0) Urine Specific [place] 1.027 (1.001-1.035) Urine Protein Trace (Negative) H Urine Ketones 1+ (Negative) H Urine Blood Negative /uL (Negative) Urine Nitrite Negative (Negative) Urine Bilirubin Negative (Negative) Urine Urobilinogen Normal mg/dL (Negative) Urine Leukocyte Esterase Negative /uL (Negative) Urine RBC 1 /hpf (0 - 3) Urine Microscopic WBC 3 /HPF (0-3) Urine Squamous Epithelial Cells Few /hpf (<5) Urine Calcium Oxalate Crystals Mod (None Seen) Urine Bacteria /hpf (None Seen) Urine Hyaline Casts Few /lpf (0 - 2) Urine Mucus Few (None Seen) Urine Glucose Normal mg/dL (Normal) Microbiology Microbiology Date/Time Source Procedure Growth Status 09/19/24 23:35 Nose MRSA Screen - Final Complete Labs and/or images reviewed: Labs reviewed by me, Image(s) reviewed by me Assessment/Plan Assessment/Plan Acute epigastric abdominal pain: CT abdomen pelvis without contrast negative lipase negative, pantoprazole GI consult by Dr. Asuncion Ramirez, possible EGD and colonoscopy as an out pt Constipation, Hypertension, Hyperlipidemia, Plan discussed with: Patient Date of Service: Sep 21, 2024 Billing Provider: ROBERT CARBAJAL MD Common Visit Codes: [id number] INP/OBS CARE(HIGH) ROBERT CARBAJAL MD Sep 21, 2024 11:51
[2024-09-21] MEDS ORDERED: DOCU-94 PO (11:52)
--- NOTE | 2024-09-21 11:55 | DVHDS2 ---
Discharge Summary Date of Admission Sep 19, 2024 at 12:30 Date of Discharge: Sep 21, 2024 Admitting Diagnosis Abdominal pain and constipation Wounds: None Labs/Diagnostic Data: Laboratory Results Test 09/20/24 05:51 09/19/24 06:11 09/19/24 04:50 White Blood Count 5.1 10^3/uL (4.4-10.8) Red Blood Count 4.71 10^6/uL (4.5-5.90) Hemoglobin 14.3 g/dL (13.5-17.5) Hematocrit 41.4 % (41.0-53.0) Mean Corpuscular Volume 88.0 fL (80.0-100.0) Mean Corpuscular Hemoglobin 30.4 pg (28.0-32.0) Mean Corpuscular Hemoglobin Concent 34.6 g/dL (32.0-36.0) Red Cell Distribution Width 14.0 % (11.8-14.3) Platelet Count 130 10^3/uL (140-450) Mean Platelet Volume 8.6 fL (6.9-10.8) Neutrophils (%) (Auto) 60.1 % (37.0-80.0) Lymphocytes (%) (Auto) 30.7 % (10.0-50.0) Monocytes (%) (Auto) 7.5 % (0.0-12.0) Eosinophils (%) (Auto) 1.2 % (0.0-7.0) Basophils (%) (Auto) 0.5 % (0.0-2.0) Neutrophils # (Auto) 3.1 10 ^3/uL (1.6-8.6) Lymphocytes # (Auto) 1.6 10 ^3/uL (0.4-5.4) Monocytes # (Auto) 0.4 10 ^3/uL (0-1.3) Eosinophils # (Auto) 0.1 10 ^3/uL (0-0.8) Basophils # (Auto) 0 10 ^3/uL (0-0.2) Nucleated Red Blood Cells 0.0 % Sodium Level 143 mmol/L (136-145) Potassium Level 3.8 mmol/L (3.5-5.1) Chloride Level 109 mmol/L (98-107) Carbon Dioxide Level 25 mmol/L (20-31) Anion Gap 9 (5-15) Blood Urea Nitrogen 8 mg/dL (9-23) Creatinine 0.65 mg/dL (0.700-1.30) Glomerular Filtration Rate Calc 96 mL/min (>90) BUN/Creatinine Ratio 12.3 (10.0-20.0) Serum Glucose 100 mg/dL (74-106) Calcium Level 9.2 mg/dL (8.7-10.4) Total Bilirubin 1.0 mg/dL (0.2-1.0) Aspartate Amino Transferase (AST) 12 U/L (<34) Alanine Aminotransferase (ALT) 9 U/L (7-40) Alkaline Phosphatase 54 U/L (46-116) Total Protein 5.9 g/dL (5.7-8.2) Albumin 3.6 g/dL (3.2-4.8) Lipase 28 U/L (12-53) Troponin I High Sensitivity < 3 ng/L (</=54) Urine Color Yellow (Yellow) Urine Clarity Clear (Clear) Urine pH 5.5 (5.0-9.0) Urine Specific Cowen 1.027 (1.001-1.035) Urine Protein Trace (Negative) Urine Ketones 1+ (Negative) Urine Blood Negative /uL (Negative) Urine Nitrite Negative (Negative) Urine Bilirubin Negative (Negative) Urine Urobilinogen Normal mg/dL (Negative) Urine Leukocyte Esterase Negative /uL (Negative) Urine RBC 1 /hpf (0 - 3) Urine Microscopic WBC 3 /HPF (0-3) Urine Squamous Epithelial Cells Few /hpf (<5) Urine Calcium Oxalate Crystals Mod (None Seen) Urine Bacteria /hpf (None Seen) Urine Hyaline Casts Few /lpf (0 - 2) Urine Mucus Few (None Seen) Urine Glucose Normal mg/dL (Normal) Other Laboratory Tests 09/20/24 05:51 Brief Hx & Hospital Course: DVT ruled male with a history of hypertension hyperlipidemia constipation came in complaining of abdominal pain and constipation. CT abdomen pelvis without contrast negative lipase is negative treated with the pantoprazole and lactulose patient feels better seen by GI Dr. Asuncion Ramirez who advised outpatient EGD and colonoscopy discharged home on Colace. He will follow up with the GI for EGD and colonoscopy Consults/Reason for consult GI Dr. Asuncion Ramirez Operations or Procedures CT abdomen pelvis without contrast Condition at Discharge: Fair Final Diagnosis/Problems List Acute epigastric abdominal pain: CT abdomen pelvis without contrast negative lipase negative, pantoprazole GI consult by Dr. Asuncion Ramirez, possible EGD and colonoscopy as an out pt Constipation, Hypertension, Hyperlipidemia, Discharge Disposition: Home Discharge Instruct/Medications Diet: Regular Activity: Light activity Follow Up/Referral: Follow up With GI Dr. Asuncion Ramirez in two weeks for outpatient EGD and colonoscopy Medications: Colace Transmitted to pharmacy 39 (Time taken discharge summary 39 minutes) Discharge Statement: "Patient was advised to return to the ER or call 911 if any headaches, dizziness, shortness of breath, chest pain, abdominal pain, bleeding, fevers, or worsening of medical condition. Patient was counseled about treatment plan, medications, possible side effects, patientverbalized understanding. All questions were answered to the best of my ability. This discharge took greater then 30 minutes in planning, reviewing documentation, counseling the patient, and discussing with other team members." ASSESSMENT ASSESSMENT Hospital Course Improved Assessment Acute epigastric abdominal pain: CT abdomen pelvis without contrast negative lipase negative, pantoprazole GI consult by Dr. Asuncion Ramirez, possible EGD and colonoscopy as an out pt Constipation, Hypertension, Hyperlipidemia, Date of Service: Sep 21, 2024 Billing Provider: ROBERT CARBAJAL MD Common Visit Codes: 02804-XCE/OBS DISCH DAY >30min ROBERT CARBAJAL MD Sep 21, 2024 11:55
[2024-09-21 13:00] VITALS: BP 132/78; PULSE 70; RESP 20; TEMP 97.5; O2SAT 97
[2024-09-21 14:13] VITALS: BP 117/69; PULSE 70; RESP 18; TEMP 36.4; O2SAT 97
--- NOTE | 2024-09-21 20:50 | DVHPN2 ---
Progress Note - Dictate Date Seen: Sep 21, 2024 (Late entryPatient seen at 2.30 p.m.) Medical Necessity Reason Pt with a Central, PICC or Fol: No Subjective No new complaints Patient had a fleets mineral oil enema and had a bowel movement last night Patient is requesting to be discharged home today There was no nausea vomiting or abdominal pain vital signs Vital Sign Date Time Temp Pulse Resp B/P (MAP) Pulse Ox O2 Delivery O2 Flow Rate FiO2 09/21/24 14:13 36.4 70 18 97 09/21/24 13:00 132/78 (96) 09/21/24 08:10 Room Air* 0 21 Total Intake and Output 09/20/24 09/20/24 09/21/24 15:00 23:00 07:00 Intake Total 1875 ml 500 ml Balance 1875 ml 500 ml medications Current Medications Medications Dose Ordered Sig/Luz Maria Route Start Time Stop Time Status Last Admin Dose Admin Finasteride 5 mg DAILY PO 09/20/24 10:00 UNV objective General: NAD, AAOX3 Chest: lung amato clear to auscultation Heart: RRR, no murmur Abdomen: non-distended, mild upper abdominal tenderness to palpation, +BS laboratory and microbiology Laboratory Tests 09/20/24 05:51 Test 09/20/24 05:51 Range/Units Serum Glucose 100 74-106 mg/dL Problems(with codes): (1) Acute abdominal pain (2) Dehydration (3) Gastroenteritis (4) Constipation (5) Cirrhosis Prognosis Plan Discharge planning is in progress Maintained on stool softeners MiraLax 17 g p.o. daily My contact information was given to the patient to follow up in my office to discuss elective colonoscopy Once again thank you for allowing me to participate in the care of this patient Plan discussed with: Patient CORTEZ SERNA MD Sep 21, 2024 20:50
== END 2024-09-21 15:40 | disposition home or self-care (01) | DRG 641 ==
LOC: ER 04:29 → OVERFLOW 12:30 → WEST WING 21:30
PROVIDERS: ADMIT Family Medicine; ATTEND Family Medicine
DX: E86.0 Dehydration (principal); K56.41 Fecal impaction; E78.5 Hyperlipidemia, unspecified; I10 Essential (primary) hypertension
CPT/HCPCS: 36415; 71045; 74176; 80048; 80053; 81001; 83690; 84484; 85025; 87081; 96361; 96374; G0378; J2470

== ENCOUNTER 2024-12-09 10:15 | Inpatient (IN) | payer OTHER, MEDICAID ==
[~2024-12-09] VITALS: Ht 167.6 cm; Wt 74.8 kg
[~2024-12-09 10:15] MED LIST changes: -AML5T PO; +AMLO1TAB22 PO; +DOCU-94 PO; -LEVO750T40 PO; +MELO15TA29 PO; +MIRT1TAB PO; +PRAV20TA3 PO; +TRAZ300T16 PO; -ZOFR4T PO
[2024-12-09] MEDS: FLEET ENEMA(ADULT) 135 ML PR ONE ×2 (11:00→12:09)
[2024-12-09] MEDS: DICYCLOMINE HCL (10MG/ML) 2 ML AMPULE IM ONE (11:00)
[2024-12-09] MEDS: ONDANSETRON ODT 4 MG TAB PO ONE (11:00)
--- NOTE | 2024-12-09 11:05 | ED.PDOC ---
GI ASSESSMENT HPI Comments 79 y.o male presents to the ED for a chief complaint of epigastric pain radiating to his RUQ that started 2 days ago. Patient reports pain is sharp, intermittent and has no alleviating or precipitating factors. Patient mentions having a history of chronic constipation x multiple years, in which he was seen at this facility for on 09/19/24. At that time of visit, he was seen by GI and recommended an outpatient EGD/Colonoscopy but patient never underwent either procedure. He now states he has been constipated for the past 15 days and last BM was this morning characterized as minimal small pellet sized stool. Patient also developed chills this morning but denies any diarrhea, fever, chest pain, or SOB. Previous hx of acid reflux x 2 weeks ago s/p eating tacos with nausea and vomiting then. Since that episode, these symptoms have subsided. Chief Complaint: Abdominal Pain Time Seen by MD: 10:52 Primary Care Provider: NONE Reviewed Notes: Nurses Notes, Medications, Allergies Allergies: Coded Allergies: NO KNOWN ALLERGIES (Unverified , 06/11/18) Home Meds Active Scripts Docusate Sodium (Colace) 100 Mg Cap, 1 CAP PO BID, #30 CAP Prov:ROBERT CARBAJAL MD 09/21/24 Lactulose (Lactulose) 10 Gm/15 Ml Eufemia, 10 GM PO BIDP PRN, #150 ML Prov:ANNAMARIA ARROYO PAC 09/03/24 Acetaminophen (Acetaminophen) 500 Mg Tab, 500 MG PO Q4HP PRN, #20 TAB Prov:ANNAMARIA ARROYO PAC 12/08/23 Tamsulosin Hcl (Flomax) 0.4 Mg Cap, 0.4 MG PO QPM for 30 Days, #30 CAP Prov:JASON ANDREW RESIDENT 11/21/23 Reported Medications Trazodone Hcl (Trazodone Hcl) 100 Mg Tab, 1 TAB PO QPM, #30 TAB 1 Refill 12/09/24 Losartan Potassium (Losartan Potassium) 25 Mg Tab, 1 TAB PO DAILY 12/09/24 Pravastatin Sodium (PRAVACHOL TABLET) 20 Mg Tb, 1 TAB PO DAILY, #30 TAB 5 Refills 09/19/24 Docusate Sodium (Colace) 100 Mg Cap, 100 MG PO DAILY, CAP 09/19/24 Meloxicam (Meloxicam) 15 Mg Tab, 1 TAB PO DAILY, #30 TAB 2 Refills 09/19/24 Amlodipine Besylate (Amlodipine Besylate) 5 Mg Tab, 1 TAB PO DAILY 09/19/24 Mirtazapine (Mirtazapine Oral Disintegrating Tablet) 7.5 Mg Tab, 1 TAB PO DAILY 09/19/24 Finasteride (Finasteride) 5 Mg Tab, 1 TAB PO DAILY 11/13/23 Discontinued Reported Medications Trazodone HCl (Trazodone Hydrochloride) 300 Mg Tab, 300 MG PO QHSP, TAB 09/19/24 Information Source: Patient Mode of Arrival: Wheelchair Timing: Days (2) Duration: Intermittent Quality: Aching Vomitus: None Stool: Minimal Severity: Moderate Recent: None Recent Hx of: None Pain Location: Epigastric, RUQ Modifying Factors: Nothing Associated sign and symptoms: Constipation, Abdominal Pain Past Medical History PAST MEDICAL HISTORY: High Lipids, HTN, Liver Surgical History: Denies all surgeries Family History Family History: Unknown Social History Smoker: Non-Smoker Drugs: Denies Drug Use Lives In: Home Constitutional: reports: chills; denies: diaphoresis, fatigue, fever, malaise, sweats, weakness, others EENTM: denies: blurred vision, double vision, ear bleeding, ear discharge, ear drainage, ear pain, ear ringing, eye pain, eye redness, hearing loss, mouth pain, mouth swelling, nasal discharge, nose bleeding, nose congestion, nose pain, photophobia, tearing, throat pain, throat swelling, voice changes, others Respiratory: denies: cough, hemoptysis, orthopnea, SOB at rest, shortness of breath, SOB with excertion, stridor, wheezing, others Cardiovascular: denies: chest pain, dizzy spells, diaphoresis, Dyspnea on exertion, edema, irregular heart beat, left arm pain, lightheadedness, palpitations, PND, syncope, others Gastrointestinal: reports: abdominal pain, constipated; denies: abdomen distended, blood streaked bowels, diarrhea, dysphagia, difficulty swallowing, hematemesis, melena, nausea, poor appetite, poor fluid intake, rectal bleeding, rectal pain, vomiting, others Genitourinary: denies: burning, dysuria, flank pain, frequency, hematuria, incontinence, penile discharge, penile sore, pain, testicle pain, testicle swelling, urgency, others Neurological: denies: dizziness, fainting, headache, left sided numbness, left sided weakness, numbness, paresthesia, pre-existing deficit, right sided numbness, right sided weakness, seizure, speech problems, tingling, tremors, weakness, others Musculoskeletal: denies: back pain, gout, joint pain, joint swelling, muscle pain, muscle stiffness, neck pain, others Integumetry: denies: bruises, change in color, change in hair/nails, dryness, laceration, lesions, lumps, rash, wounds, others Allergic/Immunocompromised: denies: Difficulty Healing, Frequent Infections, Hives, Itching, others Hematologic/Lymphatic: denies: anemia, blood clots, easy bleeding, easy bruising, swollen glands, others Endocrine: denies: excessive hunger, excessive sweating, excessive thirst, excessive urination, flushing, intolerance to cold, intolerance to heat, unexplained weight gain, unexplained weight loss, others Psychiatric: denies: anxiety, bipolar disorder, depression, hopeless, panic disorder, schizophrenia, sleepless, suicidal, others All Other Systems: Reviewed and Negative Physical Exam General Appearance: No Apparent Distress HEENT: Other (Pupils and face symmetric. Dry mucous membranes.) Neck: Full Range of Motion, Normal Inspection Respiratory: Lungs Clear, No Accessory Muscle Use, No Respiratory Distress, Normal Breath Sounds Cardiovascular: No Edema, No JVD, Regular Rate/Rhythm Breast Exam: Deferred Gastrointestinal: Epigastric, RUQ, Soft, Tenderness Genitalia: Deferred Pelvic: Deferred Rectal: Deferred Extremities: Normal inspection, Normal range of motion, Non-tender, No pedal edema Neurologic: Alert (Oriented x4), Normal Affect, Normal Mood Cerebellar Function: NOT DONE Reflexes: NOT DONE Skin: Dry, Normal Color, Warm Lymphatic: NOT DONE Was a procedure done? Was a procedure done?: No GI differential Dx Differential Diagnosis: Bowel Obstruction, Cholangitis, Cholecystitis, Constipation, Gastritis/PUD, Gastroenteritis, Inflammatory BD, Ischemic Bowel, Pancreatitis, UTI, Dehydration, Electrolyte Imbalance, Food Poisoning, Bacterial, Viral, Impaction, Renal Failure, Esophageal Varicies, Stress Ulcer X-Ray, Labs, Meds, VS Vital Signs Date Time Temp Pulse Resp B/P (MAP) Pulse Ox O2 Delivery O2 Flow Rate FiO2 12/09/24 15:00 91 18 100/56 (71) 94 9/14/25 15:00 76 26 126/70 (88) 93 12/09/24 14:20 89 20 100/56 (71) 92 12/09/24 12:20 98.5 76 32 118/46 (70) 92 98.5 12/09/24 12:20 80 32 95 Room Air* 0 21 12/09/24 10:16 98.0 91 16 143/74 94 98.0 Lab Test 12/09/24 12:37 12/09/24 10:56 Range/Units Lactic Acid Level 8.6 *H 7.6 *H 0.4-2.0 mmol/L White Blood Count 2.5 L 4.4-10.8 10^3/uL Red Blood Count 5.17 4.5-5.90 10^6/uL Hemoglobin 15.7 13.5-17.5 g/dL Hematocrit 46.1 41.0-53.0 % Mean Corpuscular Volume 89.2 80.0-100.0 fL Mean Corpuscular Hemoglobin 30.4 28.0-32.0 pg Mean Corpuscular Hemoglobin Concent 34.1 32.0-36.0 g/dL Red Cell Distribution Width 14.7 H 11.8-14.3 % Platelet Count 89 L 140-450 10^3/uL Mean Platelet Volume 8.4 6.9-10.8 fL Neutrophils (%) (Auto) 92.2 H 37.0-80.0 % Lymphocytes (%) (Auto) 6.9 L 10.0-50.0 % Monocytes (%) (Auto) 0.7 0.0-12.0 % Eosinophils (%) (Auto) 0.1 0.0-7.0 % Basophils (%) (Auto) 0.1 0.0-2.0 % Neutrophils # (Auto) 2.3 1.6-8.6 10 ^3/uL Lymphocytes # (Auto) 0.2 L 0.4-5.4 10 ^3/uL Monocytes # (Auto) 0 0-1.3 10 ^3/uL Eosinophils # (Auto) 0 0-0.8 10 ^3/uL Basophils # (Auto) 0 0-0.2 10 ^3/uL Nucleated Red Blood Cells 0.1 % Sodium Level 144 136-145 mmol/L Potassium Level 3.2 L 3.5-5.1 mmol/L Chloride Level 108 H 98-107 mmol/L Carbon Dioxide Level 14 L 20-31 mmol/L Anion Gap 22 H 5-15 Blood Urea Nitrogen 18 9-23 mg/dL Creatinine 1.03 0.700-1.30 mg/dL Glomerular Filtration Rate Calc 74 >90 mL/min BUN/Creatinine Ratio 17.5 10.0-20.0 Serum Glucose 201 H 74-106 mg/dL Hemoglobin A1c 5.5 <5.7 % A1C Calcium Level 9.2 8.7-10.4 mg/dL Total Bilirubin 10.6 H 0.2-1.0 mg/dL Aspartate Amino Transferase (AST) 140 H 13-40 U/L Alanine Aminotransferase (ALT) 262 H 7-40 U/L Alkaline Phosphatase 262 H 46-116 U/L B-Type Natriuretic Peptide 468.66 0-100 pg/mL Total Protein 6.9 5.7-8.2 g/dL Albumin 3.9 3.2-4.8 g/dL Triglycerides Level 99 < 150 mg/dL Cholesterol Level 103 < 200 mg/dL LDL Cholesterol 49 < 100 mg/dL HDL Cholesterol 23 L 40-59 mg/dL Lipase 1461 H 12-53 U/L Thyroid Stimulating Hormone (TSH) 0.91 0.55-4.78 uIU/mL Current Medications Medications (Trade) Dose Ordered Sig/Luz Maria Route Start Time Stop Time Status Last Admin Dicyclomine HCl (Bentyl Injection) 20 mg ONCE ONCE IM 12/09/24 11:00 12/09/24 11:01 DC 12/09/24 11:00 Sodium Biphosphate/ Sodium Phosphate 135 ml ONCE ONCE AR 12/09/24 11:00 12/09/24 12:33 DC 12/09/24 11:00 Lactated Ringer's 1,900 ml @ 1,900 mls/hr ONCE ONCE IV 12/09/24 12:30 12/09/24 13:29 DC 12/09/24 12:30 Cefepime HCl 50 ml @ 12.5 mls/hr Q8HR IV 12/09/24 14:00 12/09/24 15:31 DC 12/09/24 13:33 Metronidazole 100 ml @ 100 mls/hr ONCE ONCE IV 12/09/24 12:30 12/09/24 13:29 DC 12/09/24 12:30 Potassium Bicarbonate (Klor-Con/Ef) 50 meq ONCE ONCE PO 12/09/24 12:30 12/09/24 12:56 DC 12/09/24 12:30 CT abdomen and pelvis without contrast INDICATION: epig/ruq pain, n/v, constip TECHNIQUE: Serial axial images were performed through the abdomen and pelvis and then reformatted in the sagittal and coronal plane. All CT scans at this medical facility are performed using dose modulation techniques as appropriate to a performed exam including the following: Automated exposure control was utilized; adjustment of the MA and/or KvP according to patient size; and use of iterative reconstruction technique. FINDINGS: Atelectasis or minimal infiltrate in the right lower lung zone and left lower lung zone. Heart size is enlarged. Liver and spleen are normal in size without focal mass. No renal masses, stones or hydronephrosis. No masses or enlargement of the adrenal glands or pancreas. No biliary dilatation. No gallstones. There is apparent thickening of the garcia of the duodenum and proximal jejunum.. No distention of bowel loops to suggest mechanical obstruction of bowel. The appendix is normal in appearance. No free fluid. Within the pelvis, bladder is smooth walled without stones. No abnormal masses or fluid collections. IMPRESSION: 1. Questionable thickening of the garcia of the duodenum and proximal jejunum possibly due to enteritis. Study limited due to lack of IV and oral contrast. X-Ray, Labs, Meds, VS Comment 79-year-old male with a history of hypertension, dyslipidemia, chronic constipation and possible liver disease complaining of epigastric and right upper quadrant pain associated with constipation Vitals remarkable for BP 143/74, oxygen saturation 94% on room air Exam remarkable for epigastric and right upper quadrant tenderness to palpation Rhythm strip independently interpreted by me: Sinus rhythm, rate 91, no ectopy. CT abdomen and pelvis showed normal liver size, no gallstones, no biliary dilatation. Thickening of the duodenal and jejunal garcia. Right upper quadrant ultrasound results pending CBC remarkable for WBC 2.5, platelets 89, CMP remarkable for potassium 3.2, chloride 108, CO2 14, glucose 201, total bilirubin 10.6, AST 140, ALT 262, alkaline phos 262, lipase 1461 Patient treated with the following in the ED: Bentyl 20 mg IM, Zofran ODT 4 mg p.o., 30 cc/kilogram LR bolus, cefepime 2 g IV, Flagyl 500 mg IV, effervescent potassium 50 mEq p.o. On re-evaluation, patient appears comfortable with stable vitals. Abdominal exam is unchanged. Plan is to admit the patient for IV antibiotics to cover for possible sepsis, and GI evaluation. Time of 1ST Reevaluation: 11:30 Reevaluation 1ST: Unchanged Patient Education/Counseling: Diagnosis, Treatment, Prognosis Family Education/Counseling: No Family Present SEPSIS Sepsis Screen Date sepsis recognized/suspect: Dec 09, 2024 Time Sepsis recognized/suspect: 1016 Recent Procedure: No On Antibiotic Therapy: No Respiratory Rate >20: No Heart Rate >90: Yes Temp<36 C (96.8 F) or >38.3 C: No SBP <90 or MAP <65 mmHG: No New Acute Mental Status Change: No Is the patient on CPAP, BIPAP,: No Physician Orders Urinalysis (12/09/24 10:46) Ct Ab Pel Wo Con-No Oral Or Iv (12/09/24 10:46) Abdomen Limited (12/09/24 12:17) Blood Culture (12/09/24 12:17) Notify Md If Map <65 Or Bp<90 (12/09/24 12:17) If Map<65 Start Vasopressor (12/09/24 12:17) Sepsis Reassesment After Fluid (12/09/24 13:17) Vital Signs Date Time Temp Pulse Resp B/P (MAP) Pulse Ox O2 Delivery O2 Flow Rate FiO2 12/09/24 15:00 91 18 100/56 (71) 94 12/09/24 15:00 76 26 126/70 (88) 93 12/09/24 14:20 89 20 100/56 (71) 92 12/09/24 12:20 98.5 76 32 118/46 (70) 92 98.5 12/09/24 12:20 80 32 95 Room Air* 0 21 12/09/24 10:16 98.0 91 16 143/74 94 98.0 Laboratory Tests Test 12/09/24 10:56 12/09/24 12:37 Lactic Acid Level 7.6 mmol/L (0.4-2.0) *H 8.6 mmol/L (0.4-2.0) *H White Blood Count 2.5 10^3/uL (4.4-10.8) L Medications Medications Dose Ordered Sig/Luz Maria Route Start Time Stop Time Status Last Admin Dose Admin Cefepime HCl 50 ml @ 12.5 mls/hr Q8HR IV 12/09/24 14:00 12/09/24 15:31 DC 12/09/24 13:33 Lactated Ringer's 1,900 ml @ 1,900 mls/hr ONCE ONCE IV 12/09/24 12:30 12/09/24 13:29 DC 12/09/24 12:30 Metronidazole 100 ml @ 100 mls/hr ONCE ONCE IV 12/09/24 12:30 12/09/24 13:29 DC 12/09/24 12:30 Potassium Bicarbonate 50 meq ONCE ONCE PO 12/09/24 12:30 12/09/24 12:56 DC 12/09/24 12:30 Reassessment Post Fluid SEPSIS FOCUS EXAM(REASSESSMENT Sepsis reassessment focused exam completed. Date: 12/09/24 Time 12:34 Departure 1 Departure Time of Disposition: 12:33 Impression: Primary Impression: Acute pancreatitis Additional Impression: Sepsis Disposition: 09 ADMITTED INPATIENT Admit to: Tele Condition: Guarded Critical Care Note Critical Care Time?: Yes (35 min-critical care time only) Critical care comment: Critical care time including multiple bedside re-evaluations, review of lab and imaging studies, and discussion of the case with the admitting provider. Patient is high risk for metabolic/hemodynamic decompensation. Stability Stability form required: No I personally scribed for CAROLYN VILLEDA MD ([place]) on 12/09/24 at 11:05. Electronically submitted by Alisa Ortiz ([facility]). I personally scribed for CAROLYN VILLEDA MD ([place]) on 12/09/24 at 11:47. Electronically submitted by Alisa Ortiz ([facility]). CAROLYN VILLEDA MD Dec 09, 2024 11:05
[2024-12-09 11:23] LABS: Hematocrit 46.1 % (41.0-53.0); Hemoglobin 15.7 g/dL (13.5-17.5); Mean Corpuscular Hemoglobin 30.4 pg (28.0-32.0); Mean Corpuscular Volume 89.2 fL (80.0-100.0); Nucleated Red Blood Cells % 0.1 %
[2024-12-09 11:29] LABS: Albumin 3.9 g/dL (3.2-4.8); Anion Gap 22 (5-15); Blood Urea Nitrogen 18 mg/dL (9-23); Calcium 9.2 mg/dL (8.7-10.4); Sodium 144 mmol/L (136-145)
--- NOTE | 2024-12-09 11:30 | DVH ---
CT abdomen and pelvis without contrast INDICATION: epig/ruq pain, n/v, constip TECHNIQUE: Serial axial images were performed through the abdomen and pelvis and then reformatted in the sagittal and coronal plane. All CT scans at this medical facility are performed using dose modula tion techniques as appropriate to a performed exam including the following: Automated exposure contro l was utilized; adjustment of the MA and/or KvP according to patient size; and use of iterative recon struction technique. FINDINGS: Atelectasis or minimal infiltrate in the right lower lung zone and left lower lung zone. He art size is enlarged. Liver and spleen are normal in size without focal mass. No renal masses, stones or hydronephrosis. No masses or enlargement of the adrenal glands or pancreas. No biliary dilatation. No gallstones. There is apparent thickening of the garcia of the duodenum and proximal jejunum.. No distention of bowel lo ops to suggest mechanical obstruction of bowel. The appendix is normal in appearance. No free fluid. Within the pelvis, bladder is smooth walled without stones. No abnormal masses or fluid collections. IMPRESSION: 1. Questionable thickening of the garcia of the duodenum and proximal jejunum possibly due to enteriti s. Study limited due to lack of IV and oral contrast. Computed Tomographic Radiation Dosimetry Report: Total CTDI vol = 7.79mGy Total DLP = 426 mGy-cm Low dose protocols were performed.
[2024-12-09 11:31] LABS: Bilirubin, Total 10.6 mg/dL (0.2-1.0)
[2024-12-09 11:35] LABS: Alanine Aminotransferase 262 U/L (7-40); Alkaline Phosphatase 262 U/L (46-116); Carbon Dioxide 14 mmol/L (20-31); Chloride 108 mmol/L (98-107); Glucose 201 mg/dL (74-106); Potassium 3.2 mmol/L (3.5-5.1)
[2024-12-09 11:36] LABS: Lipase 1461 U/L (12-53); Total Protein 6.9 g/dL (5.7-8.2)
[2024-12-09 11:37] LABS: BUN/Creatinine Ratio 17.5 (10.0-20.0)
[2024-12-09 11:43] LABS: Lactic Acid w/Reflex 7.6 mmol/L (0.4-2.0)
[2024-12-09] MEDS: ONDANSETRON ODT 4 MG TAB ONE (12:09)
[2024-12-09] MEDS ORDERED: DICYCLOMINE HCL (10MG/ML) 2 ML AMPULE IM ONE (12:11)
[2024-12-09 12:20] VITALS: PULSE 80; RESP 32; O2SAT 95
[2024-12-09] MEDS: LACTATED RINGER'S 1,900 ML IV ONE (12:30)
[2024-12-09] MEDS: POTASSIUM EFFERVESENT TAB 25 MEQ PO ONE (12:30)
[2024-12-09] MEDS: CEFEPIME 1GM/50ML 50 ML IV ONE (13:21)
[2024-12-09] MEDS: POTASSIUM EFFERVESENT TAB 25 MEQ ONE (13:22)
--- NOTE | 2024-12-09 13:28 | DVH ---
EXAM: US ABDOMEN LIMITED HISTORY: ruq pain COMPARISON: US KIDNEY on DOS: 11/12/23 TECHNIQUE: Multiple longitudinal and transverse sonographic images of the abdomen were obtained. Dopp ler was applied as indicated. FINDINGS: [PANCREAS]: The visualized portions of the pancreas are unremarkable. [AORTA]: Normal [LIVER]: 14.7 cm. increased echogenicity. There is no focal hepatic mass lesion detected. [GALLBLADDER]: Gallbladder wall measures 0.3 cm. There is no gallbladder sludge or shadowing gallston e. There is no sonographic Araya sign. [BILIARY TREE]: Not well seen [ASCITES]: No free fluid is demonstrated. [VESSELS]: The main portal vein is patent on color Doppler evaluation. The inferior vena cava is mccurdy nt on color Doppler evaluation. [RIGHT KIDNEY]: 9.5 cm. normal cortical echogenicity and normal contour. No hydronephrosis. IMPRESSION: 1. Heterogeneously echogenic liver, which is nonspecific finding and may represent hepatic steatosis and/or other underlying hepatocellular pathology. 2. No cholelithiasis or sonographic evidence of acute cholecystitis.
[2024-12-09] MEDS: CEFEPIME 1GM/50ML 50 ML IV SCH (13:33)
[2024-12-09] MEDS ORDERED: ACETAMINOPHEN 325 MG TAB PO PRN (15:15)
[2024-12-09] MEDS: SODIUM CHLORIDE 0.9% 500 ML IV ONE (15:15)
[2024-12-09] MEDS ORDERED: MORPHINE SULFATE INJ 2 MG/ml SYRG IV PRN ×2 (15:15)
[2024-12-09] MEDS: PANTOPRAZOLE 40 MG/10 ML VIAL INJ IV SCH (15:15)
[2024-12-09] MEDS: SODIUM CHLORIDE 0.9% 1,000 ML IV ONE (15:15)
[2024-12-09] MEDS ORDERED: NITROGLYCERIN 0.4 MG SL TAB SL PRN (15:15)
[2024-12-09] MEDS ORDERED: ONDANSETRON HCL 4 MG/2 ML VIAL IV PRN (15:15)
--- NOTE | 2024-12-09 16:02 | DVHHPRES ---
History of Present Illness Resident Creating Document: TONIA AHMADI RESIDENT History of Present Illness Ollie Matos is a 79-year-old male with a PMH of hypertension presented with the chief complaints of abdominal her per 2 days. Patient reported he has been having abdominal pain mostly in the umbilical and towards left but no associated symptoms initially yesterday operating diagnose the pain has been worsened associated with vomiting and nausea but no diarrhea. Patient reported nothing makes it better, nothing makes it worse and no relieving factors Patient reported he went to hospital twice before for similar abdominal pain and last episode was 1 month ago. On my assessment patient denies difficulty breathing, chest pain, diarrhea, recent sick contacts, recent travel, recent antibiotic use and other associated symptoms at this time. PMH: HTN PSH: Noncontributory Family history: Noncontributory Social history: Lives at home. History of heavy alcohol abuse but quit 2 years ago but denies smoking and other drug abuse Allergies: No known allergies Home medications: Unable to recall Patient seen and examined at the bedside. Patient currently reporting abdominal pain, nausea but improvement in vomiting. No other complaints at this time, rest of ROS is negative Review of Systems Allergies: Coded Allergies: NO KNOWN ALLERGIES (Unverified , 06/11/18) Medications Current Medications Medications Dose Ordered Sig/Luz Maria Route Start Time Stop Time Status Last Admin Dose Admin Sodium Chloride 10 ml Q8HR IV 12/09/24 22:00 UNV Ondansetron HCl 4 mg Q4HP PRN IV 12/09/24 15:15 UNV Acetaminophen 650 mg Q6HP PRN PO 12/09/24 15:15 UNV Morphine Sulfate 2 mg Q4HPRN PRN IV 12/09/24 15:15 UNV Nitroglycerin 0.4 mg Q5MINP PRN SL 12/09/24 15:15 UNV Morphine Sulfate 2 mg Q30M PRN IV 12/09/24 15:15 UNV Pantoprazole Sodium 40 mg DAILY IV 12/09/24 15:15 UNV Ceftriaxone Sodium 50 ml @ 100 mls/hr DAILY@09 IV 12/10/24 09:00 UNV Metronidazole 100 ml @ 100 mls/hr Q8HR IV 12/09/24 15:15 UNV Exam Vital Signs Vital Signs Date Time Temp Pulse Resp B/P (MAP) Pulse Ox O2 Delivery O2 Flow Rate FiO2 12/09/24 14:20 89 20 100/56 (71) 92 12/09/24 12:20 98.5 98.5 12/09/24 12:20 Room Air* 0 21 Exam Pt is lying on bed General Appearance: Alert, Oriented X3, Cooperative, Not in acute distress HEENT: Atraumatic, Mucous membranes moist/pink Respiratory: Clear to auscultation, Normal air movement, No added sounds Cardiovascular: Regular rate, Normal S1, Normal S2, No murmurs Abdominal: Umbilical nd left hypogastrium tenderness Active bowel sounds, Sof t, no distention, Extremities: No edema, Normal pulses, No tenderness/swelling Skin: No Significant rash, except past surgical scars Neuro: Normal speech, sensorimotor deficits none Psych/Mental Status: Mental status NL, Mood NL Nurse was there as senior actuarial analyst during examination Labs/Xrays Labs Test 12/09/24 12:37 12/09/24 10:56 Range/Units Lactic Acid Level 8.6 *H 0.4-2.0 mmol/L White Blood Count 2.5 L 4.4-10.8 10^3/uL Red Blood Count 5.17 4.5-5.90 10^6/uL Hemoglobin 15.7 13.5-17.5 g/dL Hematocrit 46.1 41.0-53.0 % Mean Corpuscular Volume 89.2 80.0-100.0 fL Mean Corpuscular Hemoglobin 30.4 28.0-32.0 pg Mean Corpuscular Hemoglobin Concent 34.1 32.0-36.0 g/dL Red Cell Distribution Width 14.7 H 11.8-14.3 % Platelet Count 89 L 140-450 10^3/uL Mean Platelet Volume 8.4 6.9-10.8 fL Neutrophils (%) (Auto) 92.2 H 37.0-80.0 % Lymphocytes (%) (Auto) 6.9 L 10.0-50.0 % Monocytes (%) (Auto) 0.7 0.0-12.0 % Eosinophils (%) (Auto) 0.1 0.0-7.0 % Basophils (%) (Auto) 0.1 0.0-2.0 % Neutrophils # (Auto) 2.3 1.6-8.6 10 ^3/uL Lymphocytes # (Auto) 0.2 L 0.4-5.4 10 ^3/uL Monocytes # (Auto) 0 0-1.3 10 ^3/uL Eosinophils # (Auto) 0 0-0.8 10 ^3/uL Basophils # (Auto) 0 0-0.2 10 ^3/uL Nucleated Red Blood Cells 0.1 % Sodium Level 144 136-145 mmol/L Potassium Level 3.2 L 3.5-5.1 mmol/L Chloride Level 108 H 98-107 mmol/L Carbon Dioxide Level 14 L 20-31 mmol/L Anion Gap 22 H 5-15 Blood Urea Nitrogen 18 9-23 mg/dL Creatinine 1.03 0.700-1.30 mg/dL Glomerular Filtration Rate Calc 74 >90 mL/min BUN/Creatinine Ratio 17.5 10.0-20.0 Serum Glucose 201 H 74-106 mg/dL Calcium Level 9.2 8.7-10.4 mg/dL Total Bilirubin 10.6 H 0.2-1.0 mg/dL Aspartate Amino Transferase (AST) 140 H 13-40 U/L Alanine Aminotransferase (ALT) 262 H 7-40 U/L Alkaline Phosphatase 262 H 46-116 U/L Total Protein 6.9 5.7-8.2 g/dL Albumin 3.9 3.2-4.8 g/dL Lipase 1461 H 12-53 U/L SEPSIS Sepsis Screen Date sepsis recognized/suspect: Dec 09, 2024 Time Sepsis recognized/suspect: 7 Recent Procedure: No On Antibiotic Therapy: Yes Respiratory Rate >20: Yes Heart Rate >90: No Temp<36 C (96.8 F) or >38.3 C: No SBP <90 or MAP <65 mmHG: No New Acute Mental Status Change: No Is the patient on CPAP, BIPAP,: No Physician Orders Urinalysis (12/09/24 10:46) Ct Ab Pel Wo Con-No Oral Or Iv (12/09/24 10:46) Abdomen Limited (12/09/24 12:17) Blood Culture (12/09/24 12:17) Notify Md If Map <65 Or Bp<90 (12/09/24 12:17) If Map<65 Start Vasopressor (12/09/24 12:17) Sepsis Reassesment After Fluid (12/09/24 13:17) Admit (12/09/24 15:12) Allergies (12/09/24 15:12) Code Status (12/09/24 15:12) Sodium Chloride Lock (Saline Lock Ns) (12/09/24 22:00) Oxygen Per Hour (12/09/24 15:12) Ondansetron Hcl (Zofran) (12/09/24 15:15) Complete Blood Count (12/10/24 04:00) Comprehensive Metabolic Panel (12/10/24 04:00) Condition: Fair (12/09/24 15:12) Acetaminophen Tablet (Tylenol Tablet) (12/09/24 15:15) Clear Liq Diet (12/09/24 Dinner) Morphine Sulfate Injection (12/09/24 15:15) Sequential Compression Device (12/09/24 ) Nitroglycerin Sublingual (Ntrostat Subli (12/09/24 15:15) Morphine Sulfate Injection (12/09/24 15:15) Oxygen By Nasal Cannula (12/09/24 15:12) Stat Ekg For Chest Pain (12/09/24 15:12) Notify Md Of Changes From Base (12/09/24 15:12) Chocolate Maker For 24 Hours (12/09/24 15:12) Emergency Dysrhythmia Protocol (12/09/24 15:12) Rhythm Strips Once Every Shift (12/09/24 15:12) Bilirubin, Direct (12/09/24 15:12) Ammonia (12/09/24 15:12) B-Type Natriuretic Peptide (12/09/24 15:12) Blood Alcohol (12/09/24 15:12) C-Reactive Protein (12/09/24 15:12) Drug Screen (12/09/24 15:12) Hemoglobin A1c (12/09/24 15:12) Magnesium (12/09/24 15:12) Lipid Panel (12/09/24 15:12) PTPTT (12/09/24 15:12) Urinalysis (12/09/24 15:12) Thyroid Stimulating Hormone (12/09/24 15:12) Pantoprazole (Protonix) (12/09/24 15:15) Ceftriaxone 1gm/50ml (Rocephin) (12/10/24 09:00) Ceftriaxone 1gm/50ml (Rocephin) (12/09/24 15:15) Metronidazole 500mg/100ml (Flagyl 500mg/ (12/09/24 15:15) Sodium Chloride 0.9% (12/09/24 15:15) Sodium Chloride 0.9% (12/09/24 15:15) Mrcp Mri (12/09/24 15:12) Chest Xray 1 View (12/09/24 15:12) Vital Signs Date Time Temp Pulse Resp B/P (MAP) Pulse Ox O2 Delivery O2 Flow Rate FiO2 12/09/24 14:20 89 20 100/56 (71) 92 12/09/24 12:20 98.5 76 32 118/46 (70) 92 98.5 12/09/24 12:20 80 32 95 Room Air* 0 21 12/09/24 10:16 98.0 91 16 143/74 94 98.0 Laboratory Tests Test 12/09/24 10:56 12/09/24 12:37 Lactic Acid Level 7.6 mmol/L (0.4-2.0) *H 8.6 mmol/L (0.4-2.0) *H White Blood Count 2.5 10^3/uL (4.4-10.8) L Medications Medications Dose Ordered Sig/Luz Maria Route Start Time Stop Time Status Last Admin Dose Admin Cefepime HCl 50 ml @ 12.5 mls/hr Q8HR IV 12/09/24 14:00 12/09/24 15:31 DC 12/09/24 13:33 12.5 MLS/HR Dicyclomine HCl 20 mg ONCE ONCE IM 12/09/24 11:00 12/09/24 11:01 DC 12/09/24 11:00 20 MG Lactated Ringer's 1,900 ml @ 1,900 mls/hr ONCE ONCE IV 12/09/24 12:30 12/09/24 13:29 DC 12/09/24 12:30 1,900 MLS/HR Metronidazole 100 ml @ 100 mls/hr ONCE ONCE IV 12/09/24 12:30 12/09/24 13:29 DC 12/09/24 12:30 100 MLS/HR Potassium Bicarbonate 50 meq ONCE ONCE PO 12/09/24 12:30 12/09/24 12:56 DC 12/09/24 12:30 50 MEQ Sodium Biphosphate/ Sodium Phosphate [address] 12/09/24 11:00 12/09/24 12:33 DC 12/09/24 11:00 135 ML Assessment/Plan Assessment/Plan Possible Acute pancreatitis Rule out SIRS - med surge - supportive management with the IVF, Zofran - Pain management as needed - no CT evidence Of gallstones - elevated lipase - ordered lipid panel Acute gastroenteritis - IVF - Rocephin and Flagyl - supportive management - CT abdominal pelvis showed duodenum and jejunum enteritis changes Liver 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 Hutchinson ,patient and nurse Plan discussed with: Patient My Orders Orders - TONIA AHMADI RESIDENT Procedure Category Date Status Time Admit ADMIT 12/09/24 Transmitted 15:12 Allergies DULCE 12/09/24 In Process 15:12 Code Status CODE 12/09/24 Transmitted 15:12 Sodium Chloride Lock PHA 12/09/24 Logged (Saline Lock Ns) 22:00 Oxygen Per Hour RT 12/09/24 Transmitted 15:12 Ondansetron Hcl PHA 12/09/24 Logged (Zofran) 15:15 Complete Blood Count LAB 12/10/24 Verified 04:00 Comprehensive LAB 12/10/24 Verified Metabolic Panel 04:00 Condition: Fair DULCE 12/09/24 In Process 15:12 Acetaminophen Tablet PHA 12/09/24 Logged (Tylenol Tablet) 15:15 Clear Liq Diet DIET 12/09/24 Transmitted Dinner Morphine Sulfate PHA 12/09/24 Logged Injection 15:15 Sequential DULCE 12/09/24 In Process Compression Device Nitroglycerin PHA 12/09/24 Logged Sublingual (Ntrostat 15:15 Morphine Sulfate PHA 12/09/24 Logged Injection 15:15 Oxygen By Nasal RT 12/09/24 Transmitted Cannula 15:12 Stat Ekg For Chest DULCE 12/09/24 In Process Pain 15:12 Notify Of Changes DULCE 12/09/24 In Process From Base 15:12 Chocolate Maker For DULCE 12/09/24 In Process 24 Hours 15:12 Emergency Dysrhythmia DULCE 12/09/24 In Process Protocol 15:12 Rhythm Strips Once DULCE 12/09/24 In Process Every Shift 15:12 Bilirubin, Direct LAB 12/09/24 Logged 15:12 Ammonia LAB 12/09/24 Logged 15:12 B-Type Natriuretic LAB 12/09/24 In Process Peptide 15:12 Blood Alcohol LAB 12/09/24 Logged 15:12 C-Reactive Protein LAB 12/09/24 Logged 15:12 Drug Screen LAB 12/09/24 Logged 15:12 Hemoglobin A1c LAB 12/09/24 In Process 15:12 Magnesium LAB 12/09/24 Logged 15:12 Lipid Panel LAB 12/09/24 In Process 15:12 PTPTT LAB 12/09/24 Logged 15:12 Urinalysis LAB 12/09/24 Logged 15:12 Thyroid Stimulating LAB 12/09/24 In Process Hormone 15:12 Pantoprazole PHA 12/09/24 Logged (Protonix) 15:15 Ceftriaxone 1gm/50ml PHA 12/10/24 In Process (Rocephin) 09:00 Ceftriaxone 1gm/50ml PHA 12/09/24 Logged (Rocephin) 15:15 Metronidazole PHA 12/09/24 Logged 500mg/100ml (Flagyl 15:15 Sodium Chloride 0.9% PHA 12/09/24 Logged 15:15 Sodium Chloride 0.9% PHA 12/09/24 Logged 15:15 Mrcp Mri MRI 12/09/24 Logged 15:12 Chest Xray 1 View XY 12/09/24 Taken 15:12 TONIA AHMADI RESIDENT Dec 09, 2024 16:02
[2024-12-09 16:16] LABS: Cholesterol 103 mg/dL (< 200)
[2024-12-09 16:20] LABS: HDL Cholesterol 23 mg/dL (40-59); Triglycerides 99 mg/dL (< 150)
[2024-12-09] MEDS: PANTOPRAZOLE 40 MG/10 ML VIAL INJ IV ONE (16:22)
[2024-12-09 16:30] LABS: Magnesium 1.7 mg/dL (1.6-2.6)
[2024-12-09 16:33] LABS: Bilirubin, Direct 6.0 mg/dL (<0.3)
--- NOTE | 2024-12-09 16:42 | DVH ---
EXAM: XY CHEST XRAY 1 VIEW HISTORY: sob TECHNIQUE: 1 view of the chest COMPARISON: XY CHEST PORTABLE on DOS: 09/19/24 FINDINGS/IMPRESSION: LUNGS: No pleural effusion, consolidation, or pneumothorax MEDIASTINUM: Normal cardiac size BONES: No acute osseous abnormality OTHER: None
[2024-12-09 16:47] LABS: INR 1.65 (0.9-1.15); Partial Thromboplastin Time 33.4 SEC (24.5-34.5); Prothrombin Time 16.6 sec (9.3-11.8)
--- NOTE | 2024-12-09 17:28 | DVH ---
MRI Abdomen, MRCP without IV Contrast Exam Date: 12/09/2024 04:23 PM Comparison: CT dated 12/09/2024 History: CBD obstruction Technique: Multisequence multiplanar MRI images were obtained of the abomen. MRCP including 3D SPACE, Radial 2D slabs and SPACE 3D MIP images Findings: Cardiomegaly. Liver: The liver is normal in size without focal lesions. Normal liver contour. Spleen: Unremarkable. Pancreas: The pancreas is normal in appearance without focal lesions. Gallbladder and ducts: Mild pericholecystic edema. Gallbladder wall is mildly thickened measuring 0.5 cm. The cystic duct, right and left hepatic ducts, common hepatic duct, and common bile ducts are un remarkable. The pancreatic duct is within normal limits. Adrenal glands: Unremarkable. Kidneys: Normal enhancement without suspicious lesions or hydronephrosis. Visualized bowel: Grossly unremarkable. Vasculature: Unremarkable. Lymphadenopathy: No evidence for lymphadenopathy. Ascites: Absent. Musculoskeletal: Bone marrow signal is normal. IMPRESSION: Limited examination secondary to extensive patient motion artifact. Mild pericholecystic edema and mild gallbladder wall thickening; nonspecific.
[2024-12-09 23:08] VITALS: PULSE 72; RESP 17; O2SAT 99
[2024-12-09 23:18] VITALS: BP 104/66; PULSE 72; RESP 17; TEMP 98.2; O2SAT 95
[2024-12-09] MEDS ORDERED: TRAZ-228 PO (23:21)
[2024-12-09] MEDS ORDERED: LOS25T PO (23:21)
[2024-12-09] MEDS: SODIUM CHLOR 0.9% PF (SALINE LOCK) 10ML VIAL/SYR IV SCH (23:37)
[2024-12-10] VITALS (7 sets, daily range): BP systolic 103–120; BP diastolic 65–82; PULSE 61–71; RESP 16–20; TEMP 97.6–99; O2SAT 95–98
[2024-12-10] MEDS: MELATONIN 5 MG TAB PO ONE ×2 (01:08→23:14)
[2024-12-10] MEDS ORDERED: MELATONIN 5 MG TAB ONE (01:10)
[2024-12-10 05:15] LABS: Hematocrit 38.9 % (41.0-53.0); Hemoglobin 13.5 g/dL (13.5-17.5); Mean Corpuscular Hemoglobin 30.4 pg (28.0-32.0); Mean Corpuscular Volume 87.4 fL (80.0-100.0); Nucleated Red Blood Cells % 0.1 %
[2024-12-10 05:32] LABS: Alkaline Phosphatase 115 U/L (46-116); Anion Gap 10 (5-15); BUN/Creatinine Ratio 24.4 (10.0-20.0); Blood Urea Nitrogen 20 mg/dL (9-23); Carbon Dioxide 27 mmol/L (20-31); Glucose 103 mg/dL (74-106); Potassium 3.6 mmol/L (3.5-5.1); Sodium 145 mmol/L (136-145)
[2024-12-10 05:35] LABS: Alanine Aminotransferase 158 U/L (7-40); Albumin 3.2 g/dL (3.2-4.8); Bilirubin, Total 3.9 mg/dL (0.2-1.0); Calcium 8.5 mg/dL (8.7-10.4); Chloride 108 mmol/L (98-107); Total Protein 5.6 g/dL (5.7-8.2)
[2024-12-10] MEDS: SODIUM CHLORIDE 0.9% 1,000 ML IV SCH (05:45)
[2024-12-10] MEDS: SODIUM CHLORIDE 0.9% 500 ML IV ONE (05:51)
[2024-12-10] MEDS ORDERED: MEROPENEM 1GM IVPB 50 ML IV ONE (06:54)
[2024-12-10] MEDS: MEROPENEM 1GM IVPB 50 ML IV SCH (06:55)
[2024-12-10 11:10] LABS: Hepatitis B Surface Antigen Negative (Negative); Hepatitis C Antibody Negative (Negative)
--- NOTE | 2024-12-10 15:43 | DVHPNRES ---
Progress Note Date Seen: Dec 10, 2024 Resident Creating Document: TONIA AHMADI RESIDENT Medical Necessity Reason Pt with a Central, PICC or Fol: No Subjective Review of Systems Patient seen and examined at the bedside. Overnight events reviewed, no new complaints at this time. Patient reported improvement in his symptoms since admission. But patient consults found to have Gram-negative bacteremia, change the antibiotic to meropenem. Patient reports: Feels better Objective vital signs Vital Sign Date Time Temp Pulse Resp B/P (MAP) Pulse Ox O2 Delivery O2 Flow Rate FiO2 12/10/24 13:00 98.2 63 18 107/69 (82) 95 98.2 12/10/24 08:30 Room Air* 0 21 Total Intake and Output 12/09/24 12/09/24 12/10/24 15:00 23:00 07:00 Intake Total 1325 ml Balance 1325 ml medications Current Medications Medications Dose Ordered Sig/Luz Maria Route Start Time Stop Time Status Last Admin Dose Admin Sodium Chloride 10 ml Q8HR IV 12/09/24 22:00 12/10/24 13:34 10 ML Ondansetron HCl 4 mg Q4HP PRN IV 12/09/24 15:15 Acetaminophen 650 mg Q6HP PRN PO 12/09/24 15:15 Morphine Sulfate 2 mg Q4HPRN PRN IV 12/09/24 15:15 Nitroglycerin 0.4 mg Q5MINP PRN SL 12/09/24 15:15 Morphine Sulfate 2 mg Q30M PRN IV 12/09/24 15:15 Pantoprazole Sodium 40 mg DAILY IV 12/09/24 15:15 12/10/24 10:06 40 MG Meropenem 50 ml @ 17 mls/hr Q8HR IV 12/10/24 06:00 12/10/24 13:23 17 MLS/HR Sodium Chloride 1,000 ml @ 75 mls/hr [id number] IV 12/10/24 05:45 Examination Pt is lying on bed General Appearance: Alert, Oriented X3, Cooperative, Not in acute distress HEENT: Atraumatic, Mucous membranes moist/pink Respiratory: Clear to auscultation, Normal air movement, No added sounds Cardiovascular: Regular rate, Normal S1, Normal S2, No murmurs Abdominal: Umbilical nd left hypogastrium tenderness Active bowel sounds, Soft, no distention, Extremities: No edema, Normal pulses, No tenderness/swelling Skin: No Significant rash, except past surgical scars Neuro: Normal speech, sensorimotor deficits none Psych/Mental Status: Mental status NL, Mood NL Nurse was there as foundry equipment mechanic during examination laboratory and microbiology Laboratory Tests 12/10/24 04:29 Test 12/10/24 04:29 Range/Units Serum Glucose 103 74-106 mg/dL Microbiology Date/Time Source Procedure Growth Status 12/09/24 23:50 Nose MRSA Screen - Final Complete 12/09/24 12:37 Blood Blood Culture - Preliminary Resulted Labs and/or images reviewed: Labs reviewed by me, Image(s) reviewed by me Problem List/Assessment/Plan Problem List/Assessment/Plan # Possible Acute pancreatitis likely gallstone induced # Acute gastroenteritis # Gram-negative bacteremia # Sepsis likely due to above # Possible acute cholangitis/biliary obstruction - med surge - supportive management with the IVF, Zofran - Pain management as needed - no CT evidence Of gallstones - elevated lipase - ordered lipid panel wnl - CT abdominal pelvis showed duodenum and jejunum enteritis changes - initial set of blood culture showed Gram-negative rods, ordered new set of blood cultures - change the antibiotic from Rocephin, Flagyl to meropenem - GI consult pending - MRCP showed pericholecystic edema # Liver 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 # Severe hyperbilirubinemia # Transaminitis likely from above # Thrombocytopenia likely due to above - evident on CT and ultrasound - GI consult if needed - continuously monitor lab # Hypokalemia - Repleting - Monitor lab # Early RAÚL likely due to VMN -monitor lab -avoid nephrotoxic agents -IVF GI PPX: Protonix VTE ppx: SCDs Diet: as tolerated Goals of care addressed with the patient for more than 27 minutes: Full code status Case discussed with ,patient and nurse Plan discussed with: Patient My Orders My Orders Orders - TONIA AHMADI RESIDENT Procedure Category Date Status Time * Gi Dvh Gathering Worker CONS 12/10/24 Transmitted 07:13 Complete Blood Count LAB 12/11/24 Verified 04:00 Comprehensive LAB 12/11/24 Verified Metabolic Panel 04:00 Magnesium LAB 12/11/24 Verified 04:00 TONIA AHMADI RESIDENT Dec 10, 2024 15:43
[2024-12-10] MEDS: PANTOPRAZOLE 40 MG/10 ML VIAL INJ IV ONE (17:23)
[2024-12-10] MEDS: MEROPENEM 1GM IVPB 50 ML IV ONE (17:23)
[2024-12-10 22:29] LABS: Amphetamine Screen, Urine Neg (NEGATIVE); Barbiturate Scree,Urine Neg (NEGATIVE); Benzodiazephine Screen, Urine Neg (NEGATIVE); Cannabinoid Screen, Urine Neg (NEGATIVE); Cocaine Screen, Urine Neg (NEGATIVE); Opiate Scree,Urine Neg (NEGATIVE); Phencyclidine Screen, Urine Neg (NEGATIVE)
[2024-12-10 22:39] LABS: Urine Protein, UAD TRACE (Negative)
[2024-12-11 01:00] VITALS: BP 112/65; PULSE 60; RESP 20; TEMP 97.3; O2SAT 97
[2024-12-11 05:00] VITALS: BP 119/69; PULSE 57; RESP 19; TEMP 97.6; O2SAT 96
[2024-12-11 06:14] LABS: Nucleated Red Blood Cells % 0.0 %
[2024-12-11 06:16] LABS: Hematocrit 37.1 % (41.0-53.0); Hemoglobin 13.1 g/dL (13.5-17.5); Mean Corpuscular Hemoglobin 31.0 pg (28.0-32.0); Mean Corpuscular Volume 87.8 fL (80.0-100.0)
[2024-12-11 06:20] LABS: Alkaline Phosphatase 96 U/L (46-116); Anion Gap 9 (5-15); BUN/Creatinine Ratio 21.4 (10.0-20.0); Blood Urea Nitrogen 15 mg/dL (9-23); Carbon Dioxide 25 mmol/L (20-31); Glucose 92 mg/dL (74-106); Magnesium 1.9 mg/dL (1.6-2.6); Potassium 3.6 mmol/L (3.5-5.1); Sodium 142 mmol/L (136-145)
[2024-12-11 06:24] LABS: Alanine Aminotransferase 100 U/L (7-40); Albumin 2.9 g/dL (3.2-4.8); Bilirubin, Total 2.4 mg/dL (0.2-1.0); Calcium 8.1 mg/dL (8.7-10.4); Chloride 108 mmol/L (98-107); Lipase 131 U/L (12-53); Total Protein 5.3 g/dL (5.7-8.2)
[2024-12-11 09:00] VITALS: BP 115/55; PULSE 56; RESP 19; TEMP 97.7; O2SAT 99
--- NOTE | 2024-12-11 11:58 | MEDREC ---
[facility] Intervention Section I [facility] Intervention: Review courses of therapy (Patient has no history of ESBL, currently on Meropenem. Ceftriaxone has coverage for GNR bloodstream infections, may consider de-escalating if/when clinically appropriate) FLAQUITO MCKEON [facility] RESIDENT Dec 11, 2024 11:58
[2024-12-11 13:00] VITALS: BP 115/70; PULSE 55; RESP 18; TEMP 98.6; O2SAT 96
--- NOTE | 2024-12-11 13:57 | DVHINCON2 ---
GI Consult Consult Note GI consult note Date of Consultation: 12/11/2024 Chief Complaint: Hyperbilirubinemia Referring Physician: Dr. Mar H&P: 79-year-old male admitted with complains of left upper quadrant pain for two days. Patient admits to improved abdominal pain at this time. Patient also had nausea and vomiting which has improved at this time also. Patient has been admitted with similar symptoms in the last few months. History of alcohol use but has quit two years ago. Denies any new medications Past Medical History: HTN Past Surgical History: Denies Social History: Lives at home. History of heavy alcohol abuse but quit 2 years ago but denies smoking and other drug abuse Family History: Unknown Review of Systems: Constitutional: no fever, chill, weight loss HEENT: no eye pain, no hearing loss, no oral lesion, no scleral icterus Heart: no chest pain, no chest pressure Lung: no cough, no dyspnea with exertion Abdomen: see HPI Physical exam: General: NAD, AAOX3 Chest: lung amato clear to auscultation Heart: RRR, no murmur Abdomen: non-distended, no tenderness to palpation, +BS Labs: Test 12/10/24 04:29 Range/Units Serum Glucose 103 74-106 mg/dL Microbiology Date/Time Source Procedure Growth Status 12/09/24 23:50 Nose MRSA Screen - Final Complete 12/09/24 12:37 Blood Blood Culture - Preliminary Resulted Imaging: CT abdomen pelvis IMPRESSION: 1. Questionable thickening of the garcia of the duodenum and proximal jejunum possibly due to enteritis. Study limited due to lack of IV and oral contrast. Abdominal ultrasound IMPRESSION: 1. Heterogeneously echogenic liver, which is nonspecific finding and may represent hepatic steatosis and/or other underlying hepatocellular pathology. 2. No cholelithiasis or sonographic evidence of acute cholecystitis. MRCP IMPRESSION: Limited examination secondary to extensive patient motion artifact. Mild pericholecystic edema and mild gallbladder wall thickening; nonspecific. Assessment: Pancreatitis Hyperbilirubinemia Transaminitis History of alcohol use Plan: Discussed with Dr. Ramirez Monitor labs Clear liquid diet Conservative management recommended at this time Outpatient GI follow-up for pérez endoscopy as needed Thank you for this consult Date of Service: Dec 11, 2024 Billing Provider: DYLAN CARBAJAL Common Visit Codes: CONSULT ONLY Consultation Codes: [id number] CONSULT <45MIN DYLAN CARBAJAL Dec 11, 2024 13:57
--- NOTE | 2024-12-11 15:05 | DVHPNRES ---
Progress Note Date Seen: Dec 11, 2024 Resident Creating Document: TONIA AHMADI RESIDENT Medical Necessity Reason Pt with a Central, PICC or Fol: No Subjective Review of Systems Patient seen and examined at the bedside. Overnight events reviewed, no new complaints reported. Repeat blood cultures, preliminary showed no growth. Patient reported no new complaints at this time. And improved since admission. We will make diet to soft mechanical. Patient reports: No new complaints, Feels better Objective vital signs Vital Sign Date Time Temp Pulse Resp B/P (MAP) Pulse Ox O2 Delivery O2 Flow Rate FiO2 12/11/24 13:00 98.6 55 18 115/70 (85) 96 98.6 12/11/24 07:30 Room Air* 0 21 21 Total Intake and Output 12/10/24 12/10/24 12/11/24 15:00 23:00 07:00 Intake Total 600 ml 800 ml 290 ml Balance 600 ml 800 ml 290 ml medications Current Medications Medications Dose Ordered Sig/Luz Maria Route Start Time Stop Time Status Last Admin Dose Admin Sodium Chloride 10 ml Q8HR IV 12/09/24 22:00 12/11/24 05:25 10 ML Ondansetron HCl 4 mg Q4HP PRN IV 12/09/24 15:15 Acetaminophen 650 mg Q6HP PRN PO 12/09/24 15:15 Morphine Sulfate 2 mg Q4HPRN PRN IV 12/09/24 15:15 Nitroglycerin 0.4 mg Q5MINP PRN SL 12/09/24 15:15 Morphine Sulfate 2 mg Q30M PRN IV 12/09/24 15:15 Pantoprazole Sodium 40 mg DAILY IV 12/09/24 15:15 12/11/24 10:18 40 MG Meropenem 50 ml @ 17 mls/hr Q8HR IV 12/10/24 06:00 12/11/24 05:22 17 MLS/HR Sodium Chloride 1,000 ml @ 75 mls/hr [id number] IV 12/10/24 05:45 12/10/24 18:52 75 MLS/HR Melatonin 5 mg HS PO 12/11/24 22:00 Examination Pt is lying on bed General Appearance: Alert, Oriented X3, Cooperative, Not in acute distress HEENT: Atraumatic, Mucous membranes moist/pink Respiratory: Clear to auscultation, Normal air movement, No added sounds Cardiovascular: Regular rate, Normal S1, Normal S2, No murmurs Abdominal: Active bowel sounds, Soft, no distention, no tenderness Extremities: No edema, Normal pulses, No tenderness/swelling Skin: No Significant rash, except past surgical scars Neuro: Normal speech, sensorimotor deficits none Psych/Mental Status: Mental status NL, Mood NL Nurse was there as sifting operator during examination laboratory and microbiology Laboratory Tests 12/11/24 05:35 Test 12/11/24 05:35 Range/Units Serum Glucose 92 74-106 mg/dL Microbiology Date/Time Source Procedure Growth Status 12/10/24 07:55 Blood Blood Culture - Preliminary NO GROWTH AFTER 24 HOURS OF INCUBATION. Resulted 12/09/24 23:50 Nose MRSA Screen - Final Complete Labs and/or images reviewed: Labs reviewed by me, Image(s) reviewed by me Problem List/Assessment/Plan Problem List/Assessment/Plan # Possible Acute pancreatitis likely gallstone induced # Acute gastroenteritis # Gram-negative bacteremia # Sepsis likely due to above # Possible acute cholangitis/biliary obstruction - med surge - supportive management with the IVF, Zofran - Pain management as needed - no CT evidence Of gallstones - elevated lipase - ordered lipid panel wnl - CT abdominal pelvis showed duodenum and jejunum enteritis changes - initial set of blood culture showed Gram-negative rods, ordered new set of blood cultures - change the antibiotic from Rocephin, Flagyl to meropenem - GI consult advised conservative management and outpatient GI follow up for panendoscopy - MRCP showed pericholecystic edema # 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
[2024-12-11 17:00] VITALS: BP 129/88; PULSE 59; RESP 17; TEMP 98.4; O2SAT 97
[2024-12-11 21:00] VITALS: BP_SYST 126; BP_SYST 129; BP_DIAS 73; BP_DIAS 79; PULSE 54; PULSE 59; RESP 17; RESP 18; TEMP 98; TEMP 99.3; O2SAT 95; O2SAT 96
[2024-12-11] MEDS: MELATONIN 5 MG TAB PO SCH (21:05)
[2024-12-11] MEDS ORDERED: MELATONIN 5 MG TAB PO ONE (22:00)
[2024-12-12 01:00] VITALS: BP 129/73; PULSE 54; RESP 18; TEMP 98; O2SAT 95
[2024-12-12 05:00] VITALS: BP 122/71; PULSE 54; RESP 16; TEMP 97.4; O2SAT 96
[2024-12-12 07:08] LABS: Hematocrit 37.6 % (41.0-53.0); Hemoglobin 13.2 g/dL (13.5-17.5); Mean Corpuscular Hemoglobin 30.7 pg (28.0-32.0); Mean Corpuscular Volume 87.4 fL (80.0-100.0); Nucleated Red Blood Cells % 0.1 %
[2024-12-12 07:29] LABS: Alkaline Phosphatase 100 U/L (46-116); Anion Gap 12 (5-15); BUN/Creatinine Ratio 19.6 (10.0-20.0); Blood Urea Nitrogen 11 mg/dL (9-23); Carbon Dioxide 22 mmol/L (20-31); Glucose 77 mg/dL (74-106); Magnesium 1.9 mg/dL (1.6-2.6); Sodium 141 mmol/L (136-145)
[2024-12-12 07:31] LABS: Alanine Aminotransferase 73 U/L (7-40); Albumin 2.8 g/dL (3.2-4.8); Bilirubin, Total 2.3 mg/dL (0.2-1.0); Calcium 7.8 mg/dL (8.7-10.4); Chloride 107 mmol/L (98-107); Lipase 128 U/L (12-53); Potassium 3.4 mmol/L (3.5-5.1); Total Protein 5.1 g/dL (5.7-8.2)
[2024-12-12 09:00] VITALS: BP 118/74; PULSE 52; RESP 17; TEMP 98.4; O2SAT 96
[2024-12-12] MEDS ORDERED: LEVO500T91 PO (10:54)
[2024-12-12 12:34] VITALS: TEMP 36.9
[2024-12-12 13:06] VITALS: BP 127/69; PULSE 55; RESP 18; TEMP 98; O2SAT 97
--- NOTE | 2024-12-12 13:48 | DVHPN2 ---
Subjective Patient admits to feeling better Discharge planning in process Changes from previous H/P or p: No Changes Objective Vitals Vital Signs Date Time Temp Pulse Resp B/P (MAP) Pulse Ox O2 Delivery O2 Flow Rate FiO2 12/12/24 13:06 98.0 55 18 127/69 (88) 97 98.0 12/12/24 08:00 Room Air* 0 21 Intake/Output Intake and Output 12/12/24 07:00 Intake Total 1322 ml Output Total 100 ml Balance 1222 ml Intake Oral 560 ml IV Total 762 ml Output Urine Total 100 ml # Voids 4 # Bowel Movements 1 General Appearance: Alert, Oriented X3, Cooperative, No acute distress, mild distress, moderate distress, severe distress, Other Lungs: Clear to auscultation, Normal air movement, Other Cardiovascular: Regular rate, Normal S1, Normal S2, No murmurs, Gallops, Rubs, Other Abdomen: Normal bowel sounds, Soft, No tenderness, No hepatospenomegaly, No masses, Other Medications Current Medications Medications Dose Ordered Sig/Luz Maria Route Start Time Stop Time Status Last Admin Dose Admin Sodium Chloride 10 ml Q8HR IV 12/09/24 22:00 12/12/24 13:25 10 ML Ondansetron HCl 4 mg Q4HP PRN IV 12/09/24 15:15 Acetaminophen 650 mg Q6HP PRN PO 12/09/24 15:15 Morphine Sulfate 2 mg Q4HPRN PRN IV 12/09/24 15:15 Nitroglycerin 0.4 mg Q5MINP PRN SL 12/09/24 15:15 Morphine Sulfate 2 mg Q30M PRN IV 12/09/24 15:15 Pantoprazole Sodium 40 mg DAILY IV 12/09/24 15:15 12/12/24 08:53 40 MG Meropenem 50 ml @ 17 mls/hr Q8HR IV 12/10/24 06:00 12/12/24 05:37 17 MLS/HR Sodium Chloride 1,000 ml @ 75 mls/hr [id number] IV 12/10/24 05:45 12/11/24 15:27 75 MLS/HR Melatonin 5 mg HS PO 12/11/24 22:00 12/11/24 21:05 5 MG Laboratory Results Laboratory Tests 12/12/24 04:41 Chemistry Test 12/12/24 04:41 Albumin 2.8 g/dL (3.2-4.8) L Calcium Level 7.8 mg/dL (8.7-10.4) L Magnesium Level 1.9 mg/dL (1.6-2.6) Total Protein 5.1 g/dL (5.7-8.2) L Lipid panel Test 12/12/24 04:41 Lipase 128 U/L (12-53) H LFT Test 12/12/24 04:41 Alanine Aminotransferase (ALT) 73 U/L (7-40) H Alkaline Phosphatase 100 U/L (46-116) Aspartate Amino Transferase (AST) 28 U/L (13-40) Total Bilirubin 2.3 mg/dL (0.2-1.0) H Urinalysis Test 12/10/24 21:50 Urine Color Yellow (Yellow) Urine Clarity Clear (Clear) Urine pH 7.0 (5.0-9.0) Urine Specific [place] 1.033 (1.001-1.035) Urine Protein Trace (Negative) H Urine Ketones 1+ (Negative) H Urine Blood Negative /uL (Negative) Urine Nitrite Negative (Negative) Urine Bilirubin 1+ (Negative) Urine Urobilinogen 3 mg/dL (Negative) H Urine Leukocyte Esterase Negative /uL (Negative) Urine RBC 1 /hpf (0 - 3) Urine Microscopic WBC 2 /HPF (0-3) Urine Squamous Epithelial Cells Few /hpf (<5) Urine Bacteria None seen /hpf (None Seen) Urine Glucose Normal mg/dL (Normal) Microbiology Microbiology Date/Time Source Procedure Growth Status 12/10/24 07:55 Blood Blood Culture - Preliminary NO GROWTH AFTER 48 HOURS OF INCUBATION. Resulted 12/09/24 23:50 Nose MRSA Screen - Final Complete Labs and/or images reviewed: Labs reviewed by me, Image(s) reviewed by me Assessment/Plan Assessment/Plan Pancreatitis improving Hyperbilirubinemia Transaminitis History of alcohol use Plan: Discussed with Dr. Ramirez Discharged with Levaquin Protonix Outpatient GI follow-up recommended in the next available appointment for plan for pérez endoscopy as required Plan discussed with: Patient Date of Service: Dec 12, 2024 Billing Provider: DYLAN CARBAJAL Common Visit Codes: [id number] INP/OBS CARE(HIGH) DYLAN CARBAJAL Dec 12, 2024 13:48
--- NOTE | 2024-12-12 14:53 | DVHDSRES ---
Discharge Summary Date of Admission Resident Creating Document: TONIA AHMADI RESIDENT Dec 09, 2024 at 15:12 Date of Discharge: Dec 12, 2024 Admitting Diagnosis Acute pancreatitis Labs/Diagnostic Data: Laboratory Results Test 12/12/24 04:41 12/10/24 21:50 12/10/24 07:40 12/09/24 15:50 White Blood Count 8.1 10^3/uL (4.4-10.8) Red Blood Count 4.30 10^6/uL (4.5-5.90) Hemoglobin 13.2 g/dL (13.5-17.5) Hematocrit 37.6 % (41.0-53.0) Mean Corpuscular Volume 87.4 fL (80.0-100.0) Mean Corpuscular Hemoglobin 30.7 pg (28.0-32.0) Mean Corpuscular Hemoglobin Concent 35.1 g/dL (32.0-36.0) Red Cell Distribution Width 14.7 % (11.8-14.3) Platelet Count 55 10^3/uL (140-450) Mean Platelet Volume 10.4 fL (6.9-10.8) Neutrophils (%) (Auto) 75.9 % (37.0-80.0) Lymphocytes (%) (Auto) 15.8 % (10.0-50.0) Monocytes (%) (Auto) 6.8 % (0.0-12.0) Eosinophils (%) (Auto) 1.0 % (0.0-7.0) Basophils (%) (Auto) 0.5 % (0.0-2.0) Neutrophils # (Auto) 6.1 10 ^3/uL (1.6-8.6) Lymphocytes # (Auto) 1.3 10 ^3/uL (0.4-5.4) Monocytes # (Auto) 0.5 10 ^3/uL (0-1.3) Eosinophils # (Auto) 0.1 10 ^3/uL (0-0.8) Basophils # (Auto) 0 10 ^3/uL (0-0.2) Nucleated Red Blood Cells 0.1 % Sodium Level 141 mmol/L (136-145) Potassium Level 3.4 mmol/L (3.5-5.1) Chloride Level 107 mmol/L (98-107) Carbon Dioxide Level 22 mmol/L (20-31) Anion Gap 12 (5-15) Blood Urea Nitrogen 11 mg/dL (9-23) Creatinine 0.56 mg/dL (0.700-1.30) Glomerular Filtration Rate Calc 101 mL/min (>90) BUN/Creatinine Ratio 19.6 (10.0-20.0) Serum Glucose 77 mg/dL (74-106) Calcium Level 7.8 mg/dL (8.7-10.4) Magnesium Level 1.9 mg/dL (1.6-2.6) Total Bilirubin 2.3 mg/dL (0.2-1.0) Aspartate Amino Transferase (AST) 28 U/L (13-40) Alanine Aminotransferase (ALT) 73 U/L (7-40) Alkaline Phosphatase 100 U/L (46-116) Total Protein 5.1 g/dL (5.7-8.2) Albumin 2.8 g/dL (3.2-4.8) Lipase 128 U/L (12-53) Urine Color Yellow (Yellow) Urine Clarity Clear (Clear) Urine pH 7.0 (5.0-9.0) Urine Specific [place] 1.033 (1.001-1.035) Urine Protein Trace (Negative) Urine Ketones 1+ (Negative) Urine Blood Negative /uL (Negative) Urine Nitrite Negative (Negative) Urine Bilirubin 1+ (Negative) Urine Urobilinogen 3 mg/dL (Negative) Urine Leukocyte Esterase Negative /uL (Negative) Urine RBC 1 /hpf (0 - 3) Urine Microscopic WBC 2 /HPF (0-3) Urine Squamous Epithelial Cells Few /hpf (<5) Urine Bacteria None seen /hpf (None Seen) Urine Glucose Normal mg/dL (Normal) Urine Opiates Screen Neg (NEGATIVE) Urine Fentanyl Screen Neg (NEGATIVE) Urine Barbiturates Screen Neg (NEGATIVE) Urine Phencyclidine Screen Neg (NEGATIVE) Urine Amphetamines Screen Neg (NEGATIVE) Urine Benzodiazepines Screen Neg (NEGATIVE) Urine Cocaine Screen Neg (NEGATIVE) Urine Cannabinoids Screen Neg (NEGATIVE) Lactic Acid Level 1.7 mmol/L (0.4-2.0) Hepatitis A IgM Antibody Negative Hepatitis B Surface Antigen Negative (Negative) Hepatitis B Core IgM Antibody Negative (Negative) Hepatitis C Antibody Negative (Negative) Prothrombin Time 16.6 sec (9.3-11.8) Prothrombin Time INR 1.65 (0.9-1.15) Activated Partial Thromboplast Time 33.4 SEC (24.5-34.5) Direct Bilirubin 6.0 mg/dL (<0.3) Ammonia < 10 umol/L (11-32) C-Reactive Protein High Sensitivity 9.56 mg/dL (<1.0) Plasma/Serum Blood Alcohol 3.6 mg/dL (<10) Test 12/09/24 10:56 Hemoglobin A1c 5.5 % A1C (<5.7) B-Type Natriuretic Peptide 468.66 pg/mL (0-100) Triglycerides Level 99 mg/dL (< 150) Cholesterol Level 103 mg/dL (< 200) LDL Cholesterol 49 mg/dL (< 100) HDL Cholesterol 23 mg/dL (40-59) Thyroid Stimulating Hormone (TSH) 0.91 uIU/mL (0.55-4.78) Other Laboratory Tests 12/12/24 04:41 Brief Hx & Hospital Course: Ollie Matos is a 79-year-old male with a past medical history of hypertension who presented with two days of worsening abdominal pain, primarily in the umbilical region radiating to the left side. The pain became more severe and was associated with nausea and vomiting, though he denied diarrhea, chest pain, dyspnea, recent travel, sick contacts, or antibiotic use. He reported similar episodes in the past, with the most recent occurring one month ago. Upon evaluation, the patient was admitted for further management of suspected acute pancreatitis, likely gallstone-induced, acute gastroenteritis, gram- negative bacteremia, and sepsis possibly secondary to biliary obstruction or cholangitis. Supportive care was initiated with IV fluids, Zofran, and pain control. CT imaging showed enteritis changes in the duodenum and jejunum but no gallstones. 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 Blood cultures initially grew gram- negative rods, prompting a change in antibiotics from Rocephin and Flagyl to meropenem. Repeat cultures confirmed Klebsiella pneumoniae sensitive to all antibiotics. MRCP revealed pericholecystic edema. GI consultation recommended conservative management and outpatient follow-up for panendoscopy. Additional findings included thrombocytopenia, hypokalemia, and early acute kidney injury (RAÚL), likely due to volume depletion. Electrolytes were repleted, and nephrotoxic agents were avoided. The patients condition improved significantly during hospitalization, with stabilization of liver enzymes and renal function. He was hemodynamically stable at discharge and advised to follow up with his primary care provider, GI specialist, and discharge clinic. Lifestyle modifications including a healthy diet and regular exercise were discussed and encouraged. Pt is lying on bed General Appearance: Alert, Oriented X3, Cooperative, Not in acute distress HEENT: Atraumatic, Mucous membranes moist/pink Respiratory: Clear to auscultation, Normal air movement, No added sounds Cardiovascular: Regular rate, Normal S1, Normal S2, No murmurs Abdominal: Active bowel sounds, Soft, no distention, no tenderness Extremities: No edema, Normal pulses, No tenderness/swelling Skin: No Significant rash, except past surgical scars Neuro: Normal speech, sensorimotor deficits none Psych/Mental Status: Mental status NL, Mood NL Nurse was there as therapy coordinator during examination Operations or Procedures CT abdomen and pelvis without contrast IMPRESSION: 1. Questionable thickening of the garcia of the duodenum and proximal jejunum possibly due to enteritis. Study limited due to lack of IV and oral contrast. Computed Tomographic Radiation Dosimetry Report: Total CTDI vol = 7.79mGy Total DLP = 426 mGy-cm Low dose protocols were performed. ----- EXAM: US ABDOMEN LIMITED IMPRESSION: 1. Heterogeneously echogenic liver, which is nonspecific finding and may represent hepatic steatosis and/or other underlying hepatocellular pathology. 2. No cholelithiasis or sonographic evidence of acute cholecystitis. ------ MRI Abdomen, MRCP without IV Contrast IMPRESSION: Limited examination secondary to extensive patient motion artifact. Mild pericholecystic edema and mild gallbladder wall thickening; nonspecific. 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 daily x4 days Resume home medications Scheduled Amlodipine Besylate (Amlodipine Besylate), 1 TAB PO DAILY, (Reported) Docusate Sodium (Colace), 100 MG PO DAILY, (Reported) Docusate Sodium (Colace), 1 CAP PO BID Finasteride (Finasteride), 1 TAB PO DAILY, (Reported) Levofloxacin Hemihydrate (Levaquin 500 Mg), 500 MG PO DAILY Losartan Potassium (Losartan Potassium), 1 TAB PO DAILY, (Reported) Meloxicam (Meloxicam), 1 TAB PO DAILY, (Reported) Mirtazapine (Mirtazapine Oral Disintegrating Tablet), 1 TAB PO DAILY, (Reported) Pravastatin Sodium (Pravachol Tablet), 1 TAB PO DAILY, (Reported) Tamsulosin Hcl (Flomax), 0.4 MG PO QPM Trazodone Hcl (Trazodone Hcl), 1 TAB PO QPM, (Reported) Scheduled PRN Acetaminophen (Acetaminophen), 500 MG PO Q4HP PRN Lactulose (Lactulose), 10 GM PO BIDP PRN Discontinued Medications Trazodone HCl (Trazodone Hydrochloride), 300 MG PO QHSP, (Reported) Discharge Statement: "Patient was advised to return to the ER or call 911 if any headaches, dizziness, shortness of breath, chest pain, abdominal pain, bleeding, fevers, or worsening of medical condition. Patient was counseled about treatment plan, medications, possible side effects, patientverbalized understanding. All questions were answered to the best of my ability. 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
== END 2024-12-12 14:08 | disposition home or self-care (01) | DRG 871 ==
LOC: ER 10:15 → OVERFLOW 15:12 → WEST WING 22:36
PROVIDERS: ADMIT Internal Medicine Geriatric Medicine; ATTEND Internal Medicine Geriatric Medicine
DX: A41.9 Sepsis, unspecified organism (principal); K83.1 Obstruction of bile duct; K85.10 Biliary acute pancreatitis without necrosis or infection; N17.0 Acute kidney failure with tubular necrosis; K83.09 Other cholangitis; K52.9 Noninfective gastroenteritis and colitis, unspecified; E87.6 Hypokalemia; K70.30 Alcoholic cirrhosis of liver without ascites; D69.6 Thrombocytopenia, unspecified; K59.09 Other constipation; I10 Essential (primary) hypertension; E80.6 Other disorders of bilirubin metabolism; E78.5 Hyperlipidemia, unspecified; R74.01 Elevation of levels of liver transaminase levels; Z79.899 Other long term (current) drug therapy
CPT/HCPCS: 36415; 71045; 74176; 74181; 76705; 80053; 80061; 80074; 80307; 80320; 81001; 82140; 82248; 83036; 83605; 83690; 83735; 83880; 84443; 85025; 85610; 85730; 86141; 87040; 87077; 87081; 87186; 96372; 99291; G0378; J2185; J2470; J3490; Q0162

== ENCOUNTER 2024-12-18 09:50 | Emergency (ER) | payer OTHER, MEDICAID ==
[~2024-12-18] VITALS: Ht 162.6 cm; Wt 66.1 kg
[~2024-12-18 09:50] MED LIST changes: +LEVO500T91 PO; +LOS25T PO; +TRAZ-228 PO; -TRAZ300T16 PO
[2024-12-18] MEDS: ACETAMINOPHEN 325 MG TAB PO ONE (11:20)
[2024-12-18 11:23] VITALS: BP 113/72; PULSE 73; RESP 17; TEMP 98.7; O2SAT 98
--- NOTE | 2024-12-18 11:37 | DVH ---
XY R KNEE 3V XRAY, INDICATION: Knee pain TECHNICAL DATA: Frontal , oblique and lateral views were obtained of the right knee. COMPARISON: XY R KNEE 2V XRAY on DOS: 11/16/23 FINDINGS: No fracture is identified. Medial, lateral and patellofemoral compartment joint spaces are maintained . Alignment is anatomic. Soft tissues are within normal limits. A joint effusion is demonstrated. IMPRESSION: No acute fracture or dislocation of the right knee.
--- NOTE | 2024-12-18 13:32 | ED.PDOC ---
Musculoskeletal HPI Comments Ollie Reyes is a 79-year-old male with PMHx of HTN and BPH. The patient came to the ED with chief complaint of 1 day of knee pain 11/04, that started suddenly while he was walking at home; the patient reports hearing a pop sound, after that he could not bear weight on the extremity. The patient report the pain did not improved with rest, this prompt his visit to the ED. Right knee xray have been ordered. Chief Complaint: Lower Extremity Time Seen by MD: 10:26 Primary Care Provider: NONE Reviewed Notes: Nurses Notes, Medications, Allergies Allergies: Coded Allergies: NO KNOWN ALLERGIES (Unverified , 06/11/18) Home Meds Active Scripts Levofloxacin Hemihydrate (LEVAQUIN 500 MG) 500 Mg Tab, 500 MG PO DAILY for 5 Days, #4 TAB Prov:SHANIKA COY RESIDENT 12/12/24 Docusate Sodium (Colace) 100 Mg Cap, 1 CAP PO BID, #30 CAP Prov:ROBERT CARBAJAL MD 09/21/24 Lactulose (Lactulose) 10 Gm/15 Ml Eufemia, 10 GM PO BIDP PRN, #150 ML Prov:ANNAMARIA ARROYO PAC 09/03/24 Acetaminophen (Acetaminophen) 500 Mg Tab, 500 MG PO Q4HP PRN, #20 TAB Prov:ANNAMARIA ARROYO PAC 12/08/23 Tamsulosin Hcl (Flomax) 0.4 Mg Cap, 0.4 MG PO QPM for 30 Days, #30 CAP Prov:JASON ANDREW RESIDENT 11/21/23 Reported Medications Trazodone Hcl (Trazodone Hcl) 100 Mg Tab, 1 TAB PO QPM, #30 TAB 1 Refill 12/09/24 Losartan Potassium (Losartan Potassium) 25 Mg Tab, 1 TAB PO DAILY 12/09/24 Pravastatin Sodium (PRAVACHOL TABLET) 20 Mg Tb, 1 TAB PO DAILY, #30 TAB 5 Refills 09/19/24 Docusate Sodium (Colace) 100 Mg Cap, 100 MG PO DAILY, CAP 09/19/24 Meloxicam (Meloxicam) 15 Mg Tab, 1 TAB PO DAILY, #30 TAB 2 Refills 09/19/24 Amlodipine Besylate (Amlodipine Besylate) 5 Mg Tab, 1 TAB PO DAILY 09/19/24 Mirtazapine (Mirtazapine Oral Disintegrating Tablet) 7.5 Mg Tab, 1 TAB PO DAILY 09/19/24 Finasteride (Finasteride) 5 Mg Tab, 1 TAB PO DAILY 11/13/23 Information Source: Patient Mode of Arrival: Wheelchair Location: Right Extremity Location: Knee Timing: Days Severity: Mild Circumstances: Other (Walking ground level ) Onset of Symptoms: Spontaneous Symptoms: Pain DVT Risk Factors: NONE Last Tetanus: Unknown Past Medical History PAST MEDICAL HISTORY: High Lipids, HTN, Liver Surgical History: Denies all surgeries Family History Family History: Unknown Social History Smoker: Non-Smoker Drugs: Denies Drug Use Lives In: Home Constitutional: denies: chills, diaphoresis, fatigue, fever, malaise, sweats, weakness, others EENTM: denies: blurred vision, double vision, ear bleeding, ear discharge, ear drainage, ear pain, ear ringing, eye pain, eye redness, hearing loss, mouth pain, mouth swelling, nasal discharge, nose bleeding, nose congestion, nose pain, photophobia, tearing, throat pain, throat swelling, voice changes, others Respiratory: denies: cough, hemoptysis, orthopnea, SOB at rest, shortness of breath, SOB with excertion, stridor, wheezing, others Cardiovascular: denies: chest pain, dizzy spells, diaphoresis, Dyspnea on exer tion, edema, irregular heart beat, left arm pain, lightheadedness, palpitations, PND, syncope, others Gastrointestinal: denies: abdomen distended, abdominal pain, blood streaked bowels, constipated, diarrhea, dysphagia, difficulty swallowing, hematemesis, melena, nausea, poor appetite, poor fluid intake, rectal bleeding, rectal pain, vomiting, others Genitourinary: denies: burning, dysuria, flank pain, frequency, hematuria, incontinence, penile discharge, penile sore, pain, testicle pain, testicle swelling, urgency, others Neurological: denies: dizziness, fainting, headache, left sided numbness, left sided weakness, numbness, paresthesia, pre-existing deficit, right sided numbness, right sided weakness, seizure, speech problems, tingling, tremors, weakness, others Musculoskeletal: reports: joint pain; denies: back pain, gout, joint swelling, muscle pain, muscle stiffness, neck pain, others Integumetry: denies: bruises, change in color, change in hair/nails, dryness, laceration, lesions, lumps, rash, wounds, others Allergic/Immunocompromised: denies: Difficulty Healing, Frequent Infections, Hives, Itching, others Hematologic/Lymphatic: denies: anemia, blood clots, easy bleeding, easy bruising, swollen glands, others Endocrine: denies: excessive hunger, excessive sweating, excessive thirst, excessive urination, flushing, intolerance to cold, intolerance to heat, unexplained weight gain, unexplained weight loss, others Psychiatric: denies: anxiety, bipolar disorder, depression, hopeless, panic disorder, schizophrenia, sleepless, suicidal, others Physical Exam General Appearance: No Apparent Distress, Normal HEENT: Normal ENT Inspection, Pharynx Normal, TMs Normal Neck: Full Range of Motion, Non-Tender, Normal, Normal Inspection Respiratory: Chest Non-Tender, Lungs Clear, No Accessory Muscle Use, No Respiratory Distress, Normal Breath Sounds Cardiovascular: No Edema, No JVD, No Murmur, No Gallop, Normal Peripheral Pulses, Regular Rate/Rhythm Breast Exam: Deferred Gastrointestinal: No Organomegaly, Non Tender, No Pulsatile Mass, Normal Bowel Sounds, Soft Genitalia: Deferred Pelvic: Deferred Rectal: Deferred Extremities: No calf tenderness, Normal capillary refill, Normal inspection, No pedal edema, Tender (Pain with ROM, antalgic walk, posterior drawer positive. Valgus negative) Neurologic: Abnormal Gait (Antalgic gait) Cerebellar Function: Normal Reflexes: Normal Skin: Dry, Normal Color, Warm Lymphatic: No Adenopathy Was a procedure done? Was a procedure done?: No Differential Diagnosis EXT Differential Diagnosis: Arthritis Other Differential Diagnosis #Right knee tendinopathy #Right knee meniscus tear #Right knee osteoarthritis X-Ray, Labs, Meds, VS Vital Signs Date Time Temp Pulse Resp B/P (MAP) Pulse Ox O2 Delivery O2 Flow Rate FiO2 12/18/24 11:23 73 17 98 Room Air 12/18/24 11:23 98.7 73 18 113/72 (86) 98 98.7 12/18/24 11:20 97.3 12/18/24 09:51 98.5 83 18 149/71 96 98.5 Current Medications Medications (Trade) Dose Ordered Sig/Luz Maria Route Start Time Stop Time Status Last Admin Acetaminophen (Tylenol Tablet) 650 mg ONCE ONCE PO 12/18/24 11:00 12/18/24 11:01 DC 12/18/24 11:20 X-Ray, Labs, Meds, VS Comment The patient was re-evaluated vital signs are stable, the pain level is now 4/10. Knee Xrays showed: No acute fracture or dislocation of the right knee. Time of 1ST Reevaluation: 12:40 Reevaluation 1ST: Unchanged Patient Education/Counseling: Diagnosis, Treatment, Prognosis, Need For Follow Up Family Education/Counseling: No Family Present Departure 1 Departure Time of Disposition: 13:15 Impression: Primary Impression: Knee tendinitis Disposition: 01 HOME / SELF CARE / HOMELESS Condition: Good Referrals: BREA YOST MD Additional Instructions: #R/O Knee tendinopathy vs meniscus tear #R/O osteoarthritis Continue Tylenol 500mg prn for pain F/U with orthopedics F/U with PCP in 1 week Discharged With: Self Comments Goals of care discussed with the patient > 35 min. Discussed plan of care with Dr. Torres Code status: Full code PCP: Does not recall name Plan discussed with: Patient, the patient agrees with the plan. Critical Care Note Critical Care Time?: No Stability Stability form required: No Stable for transfer: N/A Unstable for transfer: N/A Heart Score Heart Score: Heart Score Response (Comments) Value History N/A 0 EKG N/A 0 Age N/A 0 Risk Factors N/A 0 Troponin N/A 0 Total 0 GONZALO LOBO RESIDENT Dec 18, 2024 13:31
== END 2024-12-18 13:43 | disposition home or self-care (01) ==
LOC: ER 09:50
DX: M76.51 Patellar tendinitis, right knee (principal); I10 Essential (primary) hypertension; Z79.1 Long term (current) use of non-steroidal anti-inflammatories (NSAID); Z79.899 Other long term (current) drug therapy
CPT/HCPCS: 73562

== ENCOUNTER 2025-02-15 14:38 | Emergency (ER) | payer OTHER, MEDICAID ==
[~2025-02-15] VITALS: Ht 167.6 cm; Wt 70.8 kg
--- NOTE | 2025-02-15 15:41 | ED.PDOC ---
History of Present Illness HPI Comments 79 y/o Palestinian-speaking M presents with c/c of hypertension. Significant history of hypertension - on Losartan. Patient reports on coming to the ED after checking and noticing his blood pressure being elevated at home, yesterday and today, after onset of blurry vision, last night. He reports on failing to take his blood pressure medication, yesterday and today. Denies any additional acute symptoms, such as dizziness or headache. Chief Complaint: High Blood Pressure Time Seen by MD: 15:10 Primary Care Provider: NONE Reviewed Notes: Nurses Notes, Medications, Allergies Allergies: Coded Allergies: NO KNOWN ALLERGIES (Unverified , 06/11/18) Home Meds Active Scripts Levofloxacin Hemihydrate (LEVAQUIN 500 MG) 500 Mg Tab, 500 MG PO DAILY for 5 Days, #4 TAB Prov:SHANIKA COY RESIDENT 12/12/24 Docusate Sodium (Colace) 100 Mg Cap, 1 CAP PO BID, #30 CAP Prov:ROBERT CARBAJAL MD 09/21/24 Lactulose (Lactulose) 10 Gm/15 Ml Eufemia, 10 GM PO BIDP PRN, #150 ML Prov:ANNAMARIA ARROYO PAC 09/03/24 Acetaminophen (Acetaminophen) 500 Mg Tab, 500 MG PO Q4HP PRN, #20 TAB Prov:ANNAMARIA ARROYO PAC 12/08/23 Tamsulosin Hcl (Flomax) 0.4 Mg Cap, 0.4 MG PO QPM for 30 Days, #30 CAP Prov:JASON ANDREW RESIDENT 11/21/23 Reported Medications Trazodone Hcl (Trazodone Hcl) 100 Mg Tab, 1 TAB PO QPM, #30 TAB 1 Refill 12/09/24 Losartan Potassium (Losartan Potassium) 25 Mg Tab, 1 TAB PO DAILY 12/09/24 Pravastatin Sodium (PRAVACHOL TABLET) 20 Mg Tb, 1 TAB PO DAILY, #30 TAB 5 Refills 09/19/24 Docusate Sodium (Colace) 100 Mg Cap, 100 MG PO DAILY, CAP 09/19/24 Meloxicam (Meloxicam) 15 Mg Tab, 1 TAB PO DAILY, #30 TAB 2 Refills 09/19/24 Amlodipine Besylate (Amlodipine Besylate) 5 Mg Tab, 1 TAB PO DAILY 09/19/24 Mirtazapine (Mirtazapine Oral Disintegrating Tablet) 7.5 Mg Tab, 1 TAB PO DAILY 09/19/24 Finasteride (Finasteride) 5 Mg Tab, 1 TAB PO DAILY 11/13/23 Information Source: Patient Mode of Arrival: Ambulatory Severity: Moderate Timing: Hours Duration: Since onset Prehospital treatment: None Past Medical History PAST MEDICAL HISTORY: High Lipids, HTN, Liver Surgical History: Denies all surgeries Family History Family History: Unknown Social History Smoker: Non-Smoker Alcohol: Denies ETOH Use Drugs: Denies Drug Use Lives In: Home Constitutional: denies: chills, diaphoresis, fatigue, fever, malaise, sweats, weakness, others EENTM: reports: blurred vision; denies: double vision, ear bleeding, ear discharge, ear drainage, ear pain, ear ringing, eye pain, eye redness, hearing loss, mouth pain, mouth swelling, nasal discharge, nose bleeding, nose congestion, nose pain, photophobia, tearing, throat pain, throat swelling, voice changes, others Respiratory: denies: cough, hemoptysis, orthopnea, SOB at rest, shortness of breath, SOB with excertion, stridor, wheezing, others Cardiovascular: denies: chest pain, dizzy spells, diaphoresis, Dyspnea on exertion, edema, irregular heart beat, left arm pain, lightheadedness, palpitations, PND, syncope, others Gastrointestinal: denies: abdomen distended, abdominal pain, blood streaked bowels, constipated, diarrhea, dysphagia, difficulty swallowing, hematemesis, melena, nausea, poor appetite, poor fluid intake, rectal bleeding, rectal pain, vomiting, others Genitourinary: denies: burning, dysuria, flank pain, frequency, hematuria, incontinence, penile discharge, penile sore, pain, testicle pain, testicle swelling, urgency, others Neurological: denies: dizziness, fainting, headache, left sided numbness, left sided weakness, numbness, paresthesia, pre-existing deficit, right sided numbness, right sided weakness, seizure, speech problems, tingling, tremors, weakness, others Musculoskeletal: denies: back pain, gout, joint pain, joint swelling, muscle pain, muscle stiffness, neck pain, others Integumetry: denies: bruises, change in color, change in hair/nails, dryness, laceration, lesions, lumps, rash, wounds, others Allergic/Immunocompromised: denies: Difficulty Healing, Frequent Infections, Hives, Itching, others Hematologic/Lymphatic: reports: others (hypertension ); denies: anemia, blood c lots, easy bleeding, easy bruising, swollen glands Endocrine: denies: excessive hunger, excessive sweating, excessive thirst, excessive urination, flushing, intolerance to cold, intolerance to heat, unexplained weight gain, unexplained weight loss, others Psychiatric: denies: anxiety, bipolar disorder, depression, hopeless, panic disorder, schizophrenia, sleepless, suicidal, others All Other Systems: Reviewed and Negative Physical Exam General Appearance: No Apparent Distress HEENT: Normal ENT Inspection, Pharynx Normal, TMs Normal Neck: Full Range of Motion, Non-Tender, Normal, Normal Inspection Respiratory: Chest Non-Tender, Lungs Clear, No Accessory Muscle Use, No Respiratory Distress, Normal Breath Sounds Cardiovascular: No Edema, No JVD, No Murmur, No Gallop, Normal Peripheral Pulses, Regular Rate/Rhythm Breast Exam: Deferred Gastrointestinal: No Organomegaly, Non Tender, No Pulsatile Mass, Normal Bowel Sounds, Soft Genitalia: Deferred Pelvic: Deferred Rectal: Deferred Extremities: No calf tenderness, Normal capillary refill, Normal inspection, Normal range of motion, Non-tender, No pedal edema Musculoskeletal : Apperance: Normal Neurologic: Alert, backbreaker II-XII nml as Tested, No Motor Deficits, Normal Affect, Normal Mood, No Sensory Deficits Cerebellar Function: Normal Reflexes: Normal Skin: Dry, Normal Color, Warm Lymphatic: No Adenopathy Was a procedure done? Was a procedure done?: No Differential Dx Considerations may include: hypertensive emergency, primary hypertension, noncompliance, dehydration, electrolyte imbalance, among others X-Ray, Labs, Meds, VS Vital Signs Date Time Temp Pulse Resp B/P (MAP) Pulse Ox O2 Delivery O2 Flow Rate FiO2 02/15/25 14:43 97.5 90 16 173/90 96 97.5 Time of 1ST Reevaluation: 15:40 Reevaluation 1ST: Unchanged Patient Education/Counseling: Diagnosis, Treatment, Prognosis, Need For Follow Up Family Education/Counseling: No Family Present SEPSIS Sepsis Screen Date sepsis recognized/suspect: Feb 15, 2025 Time Sepsis recognized/suspect: 1449 Recent Procedure: No On Antibiotic Therapy: No Respiratory Rate >20: No Heart Rate >90: No Temp<36 C (96.8 F) or >38.3 C: No SBP <90 or MAP <65 mmHG: No New Acute Mental Status Change: No Is the patient on CPAP, BIPAP,: No Vital Signs Date Time Temp Pulse Resp B/P (MAP) Pulse Ox O2 Delivery O2 Flow Rate FiO2 02/15/25 14:43 97.5 90 16 173/90 96 97.5 Departure 1 Departure Time of Disposition: 16:35 Impression: Primary Impression: Hypertensive urgency Disposition: 01 HOME / SELF CARE / HOMELESS Condition: Fair Discharged With: Self Critical Care Note Critical Care Time?: No Stability Stability form required: No Heart Score Heart Score: Heart Score Response (Comments) Value History N/A 0 EKG N/A 0 Age N/A 0 Risk Factors N/A 0 Troponin N/A 0 Total 0 I personally scribed for MOISES LUJAN MD ([email or web address]) on 02/15/25 at 15:41. Electronically submitted by Jorge Alberto Thakur ([email or web address]). MOISES LUJAN MD Feb 15, 2025 15:41
[2025-02-15 17:14] VITALS: BP 153/77; PULSE 72; RESP 18; TEMP 98.2; O2SAT 98
== END 2025-02-15 17:25 | disposition home or self-care (01) ==
LOC: ER 14:38
DX: I16.0 Hypertensive urgency (principal); I10 Essential (primary) hypertension; E78.5 Hyperlipidemia, unspecified; Z79.899 Other long term (current) drug therapy; Z79.1 Long term (current) use of non-steroidal anti-inflammatories (NSAID)